=== PATIENT | male | born 1955 | race Hispanic/Latino ===

== ENCOUNTER 2016-07-28 10:33 | Emergency (ER) | payer MEDICARE, OTHER ==
[2016-07-28 10:33] VITALS: BMI 27.2
[2016-07-28 10:55] VITALS: RESP 18
[2016-07-28] MEDS ORDERED: Sodium Chloride 0.9% 1,000 ML IV STA (11:16)
[2016-07-28] MEDS ORDERED: Iohexol 240 (50 ml) ONE (11:19)
--- NOTE | 2016-07-28 11:23 | ED PDOC ---
Arrival/HPI - General Chief Complaint: Abdominal Pain Time Seen by Provider: 07/28/16 10:39 Historian: Patient - History of Present Illness Narrative History of Present Illness (Text): 07/28/16 11:23 61 year old male with a past medical history that includes ileostomy, ulcerative colitis, presents to the emergency department with abdominal pain and diarrhea for the past 2 weeks. pt reports he is having diarrhea from rectum and into iliostomy. pt poor historian. No fever, no other complaints. 07/28/16 15:24 Time/Duration: > week Symptom Onset: Gradual Symptom Course: Unchanged Modifying Factors (Text): None Associated Symptoms (Text): None Past Medical History - Provider Review Nursing Documentation Reviewed: Yes - Infectious Disease Hx of Infectious Diseases: None - Tetanus Immunization Tetanus Immunization: Unknown - Reproductive Currently : No - Cardiac Hx Cardiac Disorders: Yes Hx Hypertension: Yes - Pulmonary Hx Respiratory Disorders: No - Neurological Hx Neurological Disorder: No - HEENT Hx HEENT Disorder: No - Renal Hx Renal Disorder: No - Endocrine/Metabolic Hx Endocrine Disorders: No - Hematological/Oncological Hx Blood Transfusions: Yes Hx Blood Transfusion Reaction: No - Integumentary Hx Dermatological Disorder: No - Musculoskeletal/Rheumatological Hx Musculoskeletal Disorders: Yes Hx Arthritis: Yes Hx Falls: No Hx Osteoporosis: Yes - Gastrointestinal Hx Bowel Surgery: Yes (Colectomy ) - Genitourinary/Gynecological Hx Genitourinary Disorders: No - Psychiatric Hx Psychophysiologic Disorder: No Hx Substance Use: Yes - Surgical History Hx Cholecystectomy: Yes Other/Comment: COLOSTOMY WITH REVERSAL - Anesthesia Hx Anesthesia: No - Suicidal Assessment Feels Threatened In Home Enviroment: No Family/Social History - Physician Review Nursing Documentation Reviewed: Yes Family/Social History: Unknown Family HX Smoking Status: Current Some Days Smoker Hx Alcohol Use: Yes Frequency of alcohol use: Socially Hx Substance Use: Yes Substance used: CANNABIS Hx Substance Use Treatment: No Allergies/Home Meds Allergies/Adverse Reactions: Allergies No Known Allergies Allergy (Verified 07/28/16 10:55) Home Medications: Home Meds Medication Instructions Recorded Confirmed Vit [id number] 1,000 iu PO DAILY 07/28/16 07/28/16 Review of Systems - Physician Review All systems were reviewed & negative as marked: Yes - Review of Systems Constitutional: absent: Fevers Gastrointestinal: Abdominal Pain, Diarrhea Neurological: absent: Dizziness Physical Exam Vital Signs Reviewed: Yes Vital Signs Pulse Resp BP Pulse Ox 07/28/16 15:33 94 H 18 125/60 97 07/28/16 12:33 99 H 18 129/90 97 07/28/16 10:50 106 H 18 131/93 H 98 Blood Pressure: Normal Pulse: Tachycardic Respiratory Rate: Normal Appearance: Positive for: Well-Appearing, Non-Toxic, Comfortable Pain Distress: None Mental Status: Positive for: Alert and Oriented X 3 - Systems Exam Head: Present: Atraumatic, Normocephalic Pupils: Present: PERRL Extroacular Muscles: Present: EOMI Conjunctiva: Present: Normal Mouth: Present: Moist Mucous Membranes Neck: Present: Normal Range of Motion Respiratory/Chest: Present: Clear to Auscultation, Good Air Exchange. No: Respiratory Distress, Accessory Muscle Use Cardiovascular: Present: Regular Rate and Rhythm, Normal S1, S2. No: Murmurs Abdomen: Present: Normal Bowel Sounds, Other (Ileostomy draining liquid stool). No: Tenderness, Distention, Peritoneal Signs Back: Present: Normal Inspection Upper Extremity: Present: Normal Inspection. No: Cyanosis, Edema Lower Extremity: Present: Normal Inspection. No: Edema Neurological: Present: GCS=15, CN II-XII Intact, Speech Normal Skin: Present: Warm, Dry, Normal Color. No: Rashes Psychiatric: Present: Alert, Oriented x 3, Normal Insight, Normal Concentration Medical Decision Making ED Course and Treatment: Impression: 61 year old male with a past medical history that includes ileostomy , ulcerative colitis, presents to the emergency department with abdominal pain and diarrhea for the past 2 weeks. Differential Diagnosis include but are not limited to: ro colitis, complication of ileostomy. Plan: -- CT Abdomen/Pelvis -- Toradol, Zofran, IV fluids -- Labs -- Reassess and disposition Prior Visits: Notes and results from previous visits were reviewed. Patient last seen in ED on 05/04/16 for generalized weakness and discharged home. Progress Notes: CT Abdomen/Pelvis Pocketed Spring Machine Operator: Jim Perkins MD IMPRESSION: No acute intra-abdominal findings. 07/28/16 15:[address] unremarkable. 07/28/16 16:21 Patient evaluated by surgical team, requests patient continue outpatient care. Patient will be discharged home. Patient is stable for discharge. Patient was instructed to follow up with physician/clinic in 1-2 days or return if symptoms worsen or new concerning symptoms arise. - Lab Interpretations Lab Results: 07/28/16 13:35 07/28/16 13:35 Lab Results 07/28/16 13:35: WBC 8.9 D, RBC 5.08, Hgb 14.3, Hct 43.3, MCV 85.2, MCH 28.1, MCHC 33.0, RDW 16.4 H, Plt Count 277, MPV 9.5, Gran % 74.8 H, Lymph % (Auto) 15.3 L, [place] % (Auto) 6.7 H, Eos % (Auto) 2.5, Baso % (Auto) 0.7, Gran # 6.63 H , Lymph # 1.4, [place] # 0.6, Eos # 0.2, Baso # 0.06, PT 10.5, INR 0.97, APTT 29.2 , Sodium 132, Potassium 4.6, Chloride 100, Carbon Dioxide 23, Anion Gap 14, BUN 11, Creatinine 1.0, Est GFR ( Amer) > 60, Est GFR (Non-Af Amer) > 60, Random Glucose 79, Calcium 9.8, Total Bilirubin 0.8, AST 29, ALT 31, Alkaline Phosphatase 90, Total Protein 8.3, Albumin 4.3, Globulin 4.0, Albumin/Globulin Ratio 1.1, Lipase 216 07/28/16 13:00: Urine Color Yellow, Urine Appearance Clear, Urine pH 6.0, Ur Specific [place] >= 1.030, Urine Protein Negative, Urine Glucose (UA) Negative, Urine Ketones Negative, Urine Blood Negative, Urine Nitrate Negative, Urine Bilirubin Negative, Urine Urobilinogen 0.2, Ur Leukocyte Esterase Negative - RAD Interpretation Radiology Orders: 07/28/16 11:16 ABD PELVIS PO & IV CONTRAST [CT] Stat - Medication Orders Current Medication Orders: Discontinued Medications Sodium Chloride (Sodium Chloride 0.9%) 1,000 mls @ 1,000 mls/hr IV .Q1H STA Stop: 07/28/16 12:15 Last Admin: 07/28/16 13:06 Dose: 1,000 MLS/HR eMAR Start Stop Document 07/28/16 13:06 SF (Rec: 07/28/16 13:06 [email or web address]) Intravenous Solution Start Date 07/28/16 Start Time 13:06 End Date 07/28/16 End time 14:06 Total Infusion Time 60 Iohexol (Omnipaque 240 (50 Ml)) Confirm Administered Dose 50 ml .ROUTE .STK-MED ONE Stop: 07/28/16 11:20 Iohexol (Omnipaque 350 100 Ml) Confirm Administered Dose 350 mg .ROUTE .STK-MED ONE Stop: 07/28/16 14:23 Ketorolac Tromethamine (Toradol) 30 mg IVP STAT STA Stop: 07/28/16 11:17 Last Admin: 07/28/16 13:06 Dose: 30 MG IVP Administration Document 07/28/16 13:06 SF (Rec: 07/28/16 13:06 [email or web address]) Charges for Administration # of IVP Administrations 1 Ondansetron HCl (Zofran Inj) 4 mg IVP STAT STA Stop: 07/28/16 11:17 Last Admin: 07/28/16 13:05 Dose: 4 MG IVP Administration Document 07/28/16 13:05 SF (Rec: 07/28/16 13:06 [email or web address]) Charges for Administration # of IVP Administrations 1 - Scribe Statement The provider has reviewed the documentation as recorded by the Joyce Borrego Provider Scribe Attestation: All medical record entries made by the Joyce were at my direction and personally dictated by me. I have reviewed the chart and agree that the record accurately reflects my personal performance of the history, physical exam, medical decision making, and the department course for this patient. I have also personally directed, reviewed, and agree with the discharge instructions and disposition. Disposition/Present on Arrival - Present on Arrival Any Indicators Present on Arrival: No History of DVT/PE: No History of Uncontrolled Diabetes: No Urinary Catheter: No History of Decub. Ulcer: No History Surgical Site Infection Following: Abdominal Surgery - Disposition Have Diagnosis and Disposition been Completed?: Yes Diagnosis: Abdominal pain, Diarrhea Disposition: HOME/ ROUTINE Disposition Time: 15:26 Patient Problems: Current Active Problems Problem Status Diagnosed Abdominal pain Acute Diarrhea Acute Condition: STABLE Discharge Instructions (ExitCare): Acute Abdominal Pain (ED) Additional Instructions: please follow up with your doctor and specialist. return to er with worsening symptoms or concerns. Prescriptions: Famotidine [Pepcid] 20 mg PO DAILY #20 tab Referrals: Facundo Velez MD [Primary Care Provider] - Follow up with primary Luciano Rodriguez MD [Staff Provider] - Follow up with primary
[2016-07-28 13:16] LABS: URINE BILIRUBIN NEGATIVE (NEGATIVE); URINE BLOOD NEGATIVE (NEGATIVE); URINE GLUCOSE (UA) NEGATIVE (NEGATIVE); URINE KETONE NEGATIVE (NEGATIVE); URINE LEUKOCYTE ESTERASE NEGATIVE Leu/uL (NEGATIVE); URINE UROBILINOGEN 0.2 E.U./dL (<1 E.U./dL)
[2016-07-28 13:17] LABS: URINE APPEARANCE CLEAR (CLEAR); URINE COLOR YELLOW (YELLOW); URINE PROTEIN NEGATIVE mg/dL (<30 mg/dL)
[2016-07-28 13:42] LABS: ADD MANUAL DIFF? NO
[2016-07-28 13:54] LABS: BASO # 0.06 K/mm3 (0.0-2.0); BASO % 0.7 % (0.0-3.0); EOS # 0.2 (0.0-0.7); EOS % 2.5 % (1.5-5.0); GRAN # 6.63 (1.4-6.5); GRAN % 74.8 % (50.0-68.0); HEMATOCRIT 43.3 % (42.0-52.0); LYMPH # 1.4 (1.2-3.4); LYMPH % 15.3 % (22.0-35.0); MEAN CELL VOLUME 85.2 fL (80.0-105.0); MEAN CORPUSCULAR HEMOGLOBIN 28.1 pg (25.0-35.0); MEAN PLATELET VOLUME 9.5 fl (7.0-11.0); MONO # 0.6 (0.1-0.6); MONO % 6.7 % (1.0-6.0); PLATELET COUNT 277 10^3/uL (120.0-450.0); RED CELL DISTRIBUTION WIDTH 16.4 % (11.5-14.5); WHITE BLOOD COUNT 8.9 10^3/ul (4.5-11.0)
[2016-07-28 14:02] LABS: INR 0.97 (0.93-1.08); PARTIAL THROMBOPLASTIN TIME 29.2 Seconds (23.7-30.8)
[2016-07-28 14:09] LABS: ALB/GLOB RATIO 1.1 (1.1-1.8); ALKALINE PHOSPHATASE 90 U/L (38-133); ALT/SGPT 31 U/L (7-56); AST/SGOT 29 U/L (15-59); BILIRUBIN,TOTAL 0.8 mg/dL (0.2-1.3); BLOOD UREA NITROGEN 11 mg/dL (7-21); CALCIUM 9.8 mg/dL (8.4-10.5); CARBON DIOXIDE 23 mmol/L (21-33); CHLORIDE 100 mmol/L (98-107); GFR AFRICAN-AMERICAN > 60; GLUCOSE,RANDOM 79 mg/dL (70-110); LIPASE 216 U/L (23-300); POTASSIUM 4.6 mmol/L (3.6-5.0); SODIUM 132 mmol/L (132-148); TOTAL PROTEIN 8.3 g/dL (5.8-8.3)
[2016-07-28] MEDS ORDERED: Iohexol 350 MG/100 ML VIAL ONE (14:22)
[2016-07-28 15:08] VITALS: O2SAT 97
--- NOTE | 2016-07-28 15:21 | CT ---
PROCEDURE: CT Abdomen and Pelvis with contrast HISTORY: abd pain, diarrhea COMPARISON: None. TECHNIQUE: Contrast dose: 100 cc of Omni 350 Radiation dose: Total exam DLP = 524 mGy-cm. This CT exam was performed using one or more of the following dose reduction techniques: Automated exposure control, adjustment of the mA and/or kV according to patient size, and/or use of iterative reconstruction technique. FINDINGS: LOWER THORAX: Unremarkable. LIVER: Unremarkable. No gross lesion or ductal dilatation. GALLBLADDER AND BILE DUCTS: Gallbladder removed PANCREAS: Unremarkable. No gross lesion or ductal dilatation. SPLEEN: Unremarkable. ADRENALS: Unremarkable. No mass. KIDNEYS AND URETERS: Unremarkable. No hydronephrosis. No solid mass. VASCULATURE: Unremarkable. No aortic aneurysm. BOWEL: Unremarkable. No obstruction. No gross mural thickening. Left lower lobe colostomy APPENDIX: Normal appendix. PERITONEUM: Unremarkable. No free fluid. No free air. LYMPH NODES: Unremarkable. No enlarged lymph nodes. BLADDER: Unremarkable. REPRODUCTIVE: Unremarkable. BONES: No acute fracture. OTHER FINDINGS: None. IMPRESSION: No acute intra-abdominal findings
[2016-07-28 17:21] VITALS: BP 126/75; PULSE 83
[2016-07-29 08:17] VITALS: TEMP 98
== END 2016-07-28 17:10 | disposition home or self-care (01) ==
LOC: ED 10:33
DX: R19.7 Diarrhea, unspecified (principal); R10.9 Unspecified abdominal pain
CPT/HCPCS: 74177; 80053; 81003; 83690; 85025; 85610; 85730; 96361; 96374; 96375; 99284; J1885; J2405; J7040; Q9966; Q9967

== ENCOUNTER 2016-10-31 09:47 | Day surgery (SDC) | payer MEDICARE ==
[2016-07-30 14:16] VITALS: BMI 27.2
[2016-10-31] MEDS ORDERED: Lidocaine 2% Jelly (30 ml) ONE (10:51)
[2016-10-31 13:27] VITALS: BP 131/83; PULSE 62; RESP 16; TEMP 98.5; O2SAT 99
== END 2016-10-31 12:45 | disposition home or self-care (01) ==
LOC: ENDO 09:47 → OPSURG 09:47
PROVIDERS: ATTEND Internal Medicine Gastroenterology
DX: K51.20 Ulcerative (chronic) proctitis without complications (principal); K62.89 Other specified diseases of anus and rectum

== ENCOUNTER 2017-04-02 06:00 | Inpatient (IN) | payer MEDICARE, OTHER ==
--- NOTE | 2017-04-02 06:07 | ED PDOC ---
Arrival/HPI <Elida Odom - Last Filed: 04/02/17 12:58> - General Historian: Patient, EMS - History of Present Illness Time/Duration: < week (2 days) Symptom Onset: Gradual Symptom Course: Unchanged Activities at Onset: Light Context: Home <YolaHarley angeles - Last Filed: 04/05/17 09:25> - General Time Seen by Provider: 04/02/17 06:02 - History of Present Illness Narrative History of Present Illness (Text): 04/02/17 06:07 Danilo Farfan is a 61 year old male, whose past medical history includes ulcerative colitis, colectomy with recent colostomy reversal, hypertension, hyperlipidemia, pancreatitis, and abdominal hernia repair, who presents to the Emergency department brought in by EMS complaining of rectal bleeding. Patient states he has been experiencing rectal bleeding with associated lower abdominal pain for the past 2 days, worse tonight. Patient notes he recently underwent a colostomy reversal at [facility] about 1 week ago. Patient denies any fever, chest pain, shortness of breath, nausea, vomiting, headache, dizziness, or any other complaints. PMD: Dr. Velez (Harley Laura) Past Medical History - Provider Review Nursing Documentation Reviewed: Yes - Infectious Disease Hx of Infectious Diseases: None - Tetanus Immunization Tetanus Immunization: Unknown - Cardiac Hx Pacemaker: No - Pulmonary Hx Respiratory Disorders: No - Neurological Hx Paralysis: No - HEENT Hx HEENT Disorder: No - Renal Hx Renal Disorder: No - Endocrine/Metabolic Hx Endocrine Disorders: No - Hematological/Oncological Hx Blood Transfusions: Yes (2006) Hx Blood Transfusion Reaction: No - Integumentary Hx Dermatological Disorder: No - Musculoskeletal/Rheumatological Hx Musculoskeletal Disorders: Yes (OF SPINE) - Gastrointestinal Hx Gastrointestinal Disorders: Yes Hx Bowel Surgery: Yes - Genitourinary/Gynecological Hx Genitourinary Disorders: No - Psychiatric Hx Emotional Abuse: No Hx Physical Abuse: No Hx Substance Use: Yes (MARIJUANA- OCC USE LAST ON 07/27/16) - Surgical History Hx Cholecystectomy: Yes Other/Comment: COLOSTOMY WITH REVERSAL - Anesthesia Hx Anesthesia Reactions: No - Suicidal Assessment Feels Threatened In Home Enviroment: No <Harley Laura - Last Filed: 04/05/17 09:25> Family/Social History - Physician Review Nursing Documentation Reviewed: Yes Family/Social History: Unknown Family HX Smoking Status: Light Smoker < 10 Cigarettes Daily Hx Alcohol Use: Yes (SOCIAL) Hx Substance Use: Yes (MARIJUANA- OCC USE LAST ON 07/27/16) Substance used: CANNABIS Hx Substance Use Treatment: No <Harley Laura - Last Filed: 04/05/17 09:25> Allergies/Home Meds <Elida Odom - Last Filed: 04/02/17 12:58> <Harley Laura - Last Filed: 04/05/17 09:25> Allergies/Adverse Reactions: Allergies No Known Allergies Allergy (Verified 10/27/16 12:06) Home Medications: Home Meds Medication Instructions Recorded Confirmed Multivit-Minerals/FA/Lycopene [One 1 tab PO DAILY 10/31/16 04/02/17 Daily For Men Tablet] Review of Systems - Physician Review All systems were reviewed & negative as marked: Yes - Review of Systems Constitutional: Normal. absent: Fevers Eyes: Normal ENT: Normal Respiratory: Normal. absent: SOB, Cough Cardiovascular: Normal Gastrointestinal: Abdominal Pain (+lower abdominal pain), Other (+rectal bleeding) Genitourinary Male: Normal Musculoskeletal: Normal. absent: Back Pain, Neck Pain Skin: Normal. absent: Rash Neurological: Normal Endocrine: Normal Hemo/Lymphatic: Normal Psychiatric: Normal <Harley Laura - Last Filed: 04/05/17 09:25> Physical Exam Vital Signs Reviewed: Yes Temperature: Afebrile Blood Pressure: Hypotensive Pulse: Tachycardic Respiratory Rate: Normal Appearance: Positive for: Well-Appearing, Non-Toxic, Comfortable Pain Distress: None Mental Status: Positive for: Alert and Oriented X 3 - Systems Exam Head: Present: Atraumatic, Normocephalic Pupils: Present: PERRL Extroacular Muscles: Present: EOMI Conjunctiva: Present: Normal Mouth: Present: Moist Mucous Membranes Neck: Present: Normal Range of Motion Respiratory/Chest: Present: Clear to Auscultation, Good Air Exchange. No: Respiratory Distress, Accessory Muscle Use Cardiovascular: Present: Normal S1, S2, Tachycardic. No: Murmurs Abdomen: Present: Normal Bowel Sounds, Other (Healing surgical wound to right abdomen ). No: Tenderness, Distention, Peritoneal Signs Back: Present: Normal Inspection Upper Extremity: Present: Normal Inspection. No: Cyanosis, Edema Lower Extremity: Present: Normal Inspection. No: Edema Neurological: Present: GCS=15, CN II-XII Intact, Speech Normal Skin: Present: Warm, Dry, Normal Color. No: Rashes Psychiatric: Present: Alert, Oriented x 3, Normal Insight, Normal Concentration <Harley Laura - Last Filed: 04/05/17 09:25> Vital Signs Temp Pulse Resp BP Pulse Ox 04/02/17 09:37 97.8 F 100 H 18 103/47 L 92 L 04/02/17 09:00 110 H 18 121/82 100 04/02/17 08:13 97.7 F 109 H 18 96/62 L 95 04/02/17 07:28 97.8 F 107 H 18 99/52 L 97 04/02/17 06:41 118 H 18 99/62 L 100 04/02/17 06:06 98.1 F 128 H 18 97/45 L 99 Medical Decision Making - EKG Interpretation Interpreted by ED Physician: Yes Type: 12 lead EKG Comparison: No previous EKG avail. <Elida Odom - Last Filed: 04/02/17 12:58> - EKG Interpretation Interpreted by ED Physician: Yes Type: 12 lead EKG - Transfer of Care Patient signed out to Dr:: kiara anderson labs and dispo <Harley Laura - Last Filed: 04/05/17 09:25> ED Course and Treatment: Turnover taken from Dr Laura.On my exam pt is noted to have BP 99/66 and pulse 0f 106.Rectal exam reveals maroon colored attila blood.Pt is receiving 2nd unit of PRBC's,.Spoke with Dr Rodriguez of surgery.Spoke with cage manager,await call from Dr Hall 04/02/17 8:[address] Jones, accepts patient to ICU. Will contact Dr. Candelaria for acceptance. 04/02/17 08:[address] Carvajal, covering for Dr. Candelaria, who is aware and accepts patient admission. (Elida Odom) 04/02/17 06:07 Impression: 61 year old male complaining of rectal bleeding for 2 days, with associated lower abdominal pain. Plan: -- EKG -- Chest X-ray -- Labs, VBG, cardiac enzymes, lipase, amylase, blood type and screen -- Transfuse packed RBC -- IV fluids -- Protonix -- Reassess and disposition Prior Visits: Notes and results from previous visits were reviewed. On 07/30/2016, pt was seen in the Emergency department for colostomy evaluation. Pt was d/c home. Progress Notes: Reviewed EKG, sinus tachycardia at [address]-segment elevations or depressions, no T-wave inversions, normal intervals. pt with active bleeding and hypotension will order type specific unmatched prbs and transfuse (Harley Laura) - Lab Interpretations Lab Results: 04/02/17 06:22 04/02/17 06:22 Lab Results 04/02/17 08:09: pO2 37, VBG pH 7.33, VBG pCO2 44.0, VBG HCO3 23.2, VBG Total CO2 24.6, VBG O2 Sat (Calc) 70.5 H, VBG Base Excess -2.8 L, VBG Potassium 4.6, Glucose 100, Lactate 2.7 H, FiO2 21.0, Sodium 131.0 L, Chloride 102.0, Venous Blood Potassium 4.6 04/02/17 08:09: PT 12.4, INR 1.12 H, APTT 26.0 04/02/17 08:00: Influenza Typ A,B (EIA) Negative for flu a/b 04/02/17 06:23: Blood Type O POSITIVE, Antibody Screen Negative, Crossmatch See Detail, BBK History Checked Patient has bt 04/02/17 06:22: Sodium 132, Potassium 4.6, Chloride 100, Carbon Dioxide 17 L, Anion Gap 19, BUN 47 H, Creatinine 1.8 H, Est GFR ( Amer) 47, Est GFR ( Non-Af Amer) 39, Random Glucose 151 H, Calcium 9.3, Total Bilirubin 0.3, AST 20 , ALT 26, Alkaline Phosphatase 68, Lactate Dehydrogenase 249 L, Total Creatine Kinase 27 L, Troponin I < 0.01, Total Protein 6.6, Albumin 3.6, Globulin 3.0, Albumin/Globulin Ratio 1.2, Amylase 154 H, Lipase 540 H 04/02/17 06:22: WBC 23.8 H D, RBC 3.55, Hgb 10.0 L, Hct 31.0 L, MCV 87.3, MCH 28.2, MCHC 32.3, RDW 16.6 H, Plt Count 447, MPV 10.6, Gran % 90.5 H, Lymph % ( Auto) 4.5 L, [place] % (Auto) 4.8, Eos % (Auto) 0.0 L, Baso % (Auto) 0.2, Gran # 21.51 H, Lymph # 1.1 L, [place] # 1.1 H, Eos # 0.0, Baso # 0.05, Neutrophils % ( Manual) 92 H, Lymphocytes % (Manual) 4 L, Monocytes % (Manual) 3, Myelocytes % 1 , Platelet Evaluation Normal, Hypochromasia 1+, Anisocytosis (manual) 1+ - RAD Interpretation Radiology Orders: 04/02/17 06:11 CHEST PORTABLE [RAD] Stat 04/02/17 08:28 ABD & PELVIS W/O PO OR IV CONT [CT] Stat - EKG Interpretation EKG Interpretation (Text): 04/02/17 08:07 sinus tach at 116 BPM,no acute STTW changes,nl axis,no ectopy,nl intervals ( Elida Odom) - Medication Orders Current Medication Orders: Morphine Sulfate (Morphine) 1 mg IVP Q3H PRN PRN Reason: Pain, moderate (4-7) Last Admin: 04/05/17 08:11 Dose: 1 mg MAR Pain Assessment Document 04/05/17 08:11 (Rec: 04/05/17 08:12 [place] [id number]) Pain Reassessment Is this a pain reassessment? No Sleep Is patient sleeping during reassessment? No Presence of Pain Presence of Pain Yes Pain Scale Used Pain Scale Used Numeric Location Pain Location Body Site Abdomen Description Description Constant Pain Behavior Moaning Alleviating Factors/Management Medication Techniques Alleviating Factors Medication IVP Administration Document 04/05/17 08:11 MJ (Rec: 04/05/17 08:12 [place] [id number]) Charges for Administration # of IVP Administrations 1 Pantoprazole Sodium (Protonix Inj) 40 mg IVP Q12H [facility] Last Admin: 04/05/17 09:06 Dose: 40 mg IVP Administration Document 04/05/17 09:06 TAV (Rec: 04/05/17 09:06 T[place] [id number]) Charges for Administration # of IVP Administrations 1 Discontinued Medications Lactated Ringer's (Lactated Ringer's) 1,000 mls @ 1,000 mls/hr IV .Q1H [facility] Last Admin: 04/02/17 07:23 Dose: 1,000 mls/hr eMAR Start Stop Document 04/02/17 07:23 RG (Rec: 04/02/17 07:25 RG [id number]) Intravenous Solution Start Date 04/02/17 Start Time 07:23 Folic Acid 1 mg/ Thiamine HCl 100 mg/ Multivitamins/Vitamin C 10 ml/ Dextrose 1 ,011.2 mls @ 100 mls/hr IV .Q10H7M [place] Last Admin: 04/02/17 17:38 Dose: Sodium Chloride (Sodium Chloride 0.9%) 1,000 mls @ 200 mls/hr IV .Q5H [place] Stop: 04/04/17 12:16 Last Admin: 04/02/17 19:30 Dose: 200 mls/hr Folic Acid 1 mg/ Thiamine HCl 100 mg/ Multivitamins/Vitamin C 10 ml/ Dextrose 1 ,011.2 mls @ 100 mls/hr IV .Q10H7M [place] Stop: 04/03/17 18:30 Last Admin: 04/03/17 10:24 Dose: 100 mls/hr eMAR Start Stop Document 04/03/17 10:24 JFG (Rec: 04/03/17 10:25 RASHEL [facility] [place] [facility]) Intravenous Solution Start Date 04/03/17 Start Time 10:25 Sodium Chloride (Sodium Chloride 0.9%) 1,000 mls @ 150 mls/hr IV .Q6H40M [place] Stop: 04/04/17 12:16 Last Admin: 04/04/17 17:39 Dose: 150 mls/hr eMAR Start Stop Document 04/04/17 17:39 LMN (Rec: 04/04/17 17:39 LMN [id number]) Intravenous Solution Start Date 04/04/17 Start Time 17:39 Sodium Chloride (Sodium Chloride 0.9%) 1,000 mls @ 75 mls/hr IV .[id number] [facility] Stop: 04/03/17 14:31 Last Admin: 04/03/17 14:39 Dose: Pantoprazole Sodium (Protonix Inj) 40 mg IVP ONCE STA Stop: 04/02/17 06:22 Last Admin: 04/02/17 06:40 Dose: 40 mg IVP Administration Document 04/02/17 06:40 IT (Rec: 04/02/17 06:40 IT [id number]) Charges for Administration # of IVP Administrations 1 Potassium Chloride (Potassium Chloride Oral Soln) 40 meq PO ONCE ONE Stop: 04/03/17 10:59 Last Admin: 04/03/17 12:54 Dose: 40 meq Potassium Phos/Sodium Phos (Neutra-Phos) 1 pkt PO BID ONE Stop: 04/03/17 10:59 Last Admin: 04/03/17 11:38 Dose: Not Given Non-Admin Reason: NPO <Elida Odom - Last Filed: 04/02/17 12:58> - Scribe Statement The provider has reviewed the documentation as recorded by the Scribe <Harley Laura - Last Filed: 04/05/17 09:25> - Scribe Statement Meg Hinson Provider Scribe Attestation: All medical record entries made by the Scribe were at my direction and personally dictated by me. I have reviewed the chart and agree that the record accurately reflects my personal performance of the history, physical exam, medical decision making, and the department course for this patient. I have also personally directed, reviewed, and agree with the discharge instructions and disposition. (Harley Laura) Disposition/Present on Arrival - Present on Arrival Any Indicators Present on Arrival: No - Disposition Have Diagnosis and Disposition been Completed?: Yes Disposition Time: 08:58 Patient Plan: ICU <Elida Odom - Last Filed: 04/02/17 12:58> - Present on Arrival Any Indicators Present on Arrival: No History of DVT/PE: No History of Uncontrolled Diabetes: No Urinary Catheter: No History Surgical Site Infection Followin - Disposition Have Diagnosis and Disposition been Completed?: Yes Disposition Time: 07:00 <Harley Laura - Last Filed: 04/05/17 09:25> - Disposition Diagnosis: GI bleed Disposition: HOSPITALIZED Patient Problems: Current Active Problems Problem Status Onset GI bleed Acute Condition: CRITICAL
[2017-04-02] MEDS: Lactated Ringer's 1,000 ML IV SCH ×2 (06:40→07:23)
[2017-04-02 06:45] LABS: ALB/GLOB RATIO 1.2 (1.1-1.8); ALKALINE PHOSPHATASE 68 U/L (38-126); ALT/SGPT 26 U/L (7-56); AMYLASE 154 U/L (35-125); AST/SGOT 20 U/L (17-59); BILIRUBIN,TOTAL 0.3 mg/dL (0.2-1.3); BLOOD UREA NITROGEN 47 mg/dL (7-21); CALCIUM 9.3 mg/dL (8.4-10.5); CARBON DIOXIDE 17 mmol/L (21-33); CHLORIDE 100 mmol/L (98-107); GFR AFRICAN-AMERICAN 47; GLUCOSE,RANDOM 151 mg/dL (70-110); LIPASE 540 U/L (23-300); POTASSIUM 4.6 mmol/L (3.6-5.0); SODIUM 132 mmol/L (132-148); TOTAL PROTEIN 6.6 g/dL (5.8-8.3)
[2017-04-02 06:57] LABS: TROPONIN I < 0.01 ng/mL
[2017-04-02 07:10] LABS: BASO # 0.05 K/mm3 (0.0-2.0); BASO % 0.2 % (0.0-3.0); GRAN # 21.51 (1.4-6.5); GRAN % 90.5 % (50.0-68.0); LYMPH # 1.1 (1.2-3.4); LYMPH % 4.5 % (22.0-35.0); MEAN CELL VOLUME 87.3 fl (80.0-105.0); MEAN CORPUSCULAR HEMOGLOBIN 28.2 pg (25.0-35.0); MEAN CORPUSCULAR HGB CONC 32.3 g/dl (31.0-37.0); MEAN PLATELET VOLUME 10.6 fl (7.0-11.0); MONO # 1.1 (0.1-0.6); MONO % 4.8 % (1.0-6.0); PLATELET COUNT 447 10^3/uL (120.0-450.0); RED CELL DISTRIBUTION WIDTH 16.6 % (11.5-14.5); WHITE BLOOD COUNT 23.8 10^3/ul (4.5-11.0)
--- NOTE | 2017-04-02 08:18 | CP.CCUPN ---
CCU Subjective - Physician Review Events Since Last Encounter (Free Text): 04/02/17 08:14 61yo male pt presented with GI bleed. Pt has a h\o Ulcerative colitis and had colostomy done in the past. On March 16 he had colostomy reversal. Pt stated that for the past 3 days he has been having shortness of breath, cough and decreased PO intake. He also stated that he was nauseous and had one episode of bloody vomiting today after which he was extremely weak and could not get up and was taken to ED. He has also been having bloody diarrhea for 3 days and decreased urine output. PMH: Ulcerative colitis (denies any other medical problems) Surgical History: Hernia repair, multiple UC surgeries, Colectomy, colostomy, colostomy reversal Social HX; drinks ETOH ; smokes 1 PPD; occasionally uses Cannabis Family Hx: Father had prostate CA; mother had UC 04/02/17 08:18 CCU Objective - Vital Signs / Intake & Output Vital Signs (Last 4 hours): Vital Signs Temp Pulse Resp BP Pulse Ox 04/02/17 07:28 97.8 F 107 H 18 99/52 L 97 04/02/17 06:41 118 H 18 99/62 L 100 04/02/17 06:06 98.1 F 128 H 18 97/45 L 99 Intake and Output (Last 8hrs): Intake & Output 04/01/17 04/02/17 04/02/17 22:59 06:59 14:59 Weight 160 lb - Physical Exam Head: Positive for: Atraumatic, Normocephalic Conjunctiva: Positive for: Normal Mouth: Positive for: Dry Neck: Positive for: Normal Range of Motion Respiratory/Chest: Positive for: Clear to Auscultation, Good Air Exchange. Negative for: Respiratory Distress, Accessory Muscle Use Cardiovascular: Positive for: Normal S1, S2, Tachycardic. Negative for: Murmurs Abdomen: Positive for: Normal Bowel Sounds, Other (Healing surgical wound to right abdomen ; multiple old scars). Negative for: Tenderness, Distention, Peritoneal Signs Upper Extremity: Positive for: Normal Inspection. Negative for: Cyanosis, Edema Lower Extremity: Positive for: Normal Inspection. Negative for: Edema Neurological: Positive for: GCS=15, CN II-XII Intact, Speech Normal Skin: Positive for: Warm, Dry, Normal Color. Negative for: Rashes Psychiatric: Positive for: Alert, Oriented x 3, Normal Insight, Normal Concentration - Medications Active Medications: Active Medications Generic Name Dose Route Start Last Admin Trade Name Freq PRN Reason Stop Dose Admin Lactated Ringer's 1,000 mls @ 1,000 mls/hr 04/02/17 06:30 04/02/17 07:23 Lactated Ringer's IV 1,000 mls/hr .Q1H BRIGITTE Administration - Patient Studies Lab Studies: Lab Studies 04/02/17 04/02/17 04/02/17 Range/Units 06:23 06:22 06:22 WBC 23.8 H D (4.5-11.0) 10^3/ul RBC 3.55 (3.5-6.1) 10^6/uL Hgb 10.0 L (14.0-18.0) g/dL Hct 31.0 L (42.0-52.0) % MCV 87.3 (80.0-105.0) fl MCH 28.2 (25.0-35.0) pg MCHC 32.3 (31.0-37.0) g/dl RDW 16.6 H (11.5-14.5) % Plt Count 447 (120.0-450.0) 10^3/uL MPV 10.6 (7.0-11.0) fl Gran % 90.5 H (50.0-68.0) % Lymph % (Auto) 4.5 L (22.0-35.0) % [place] % (Auto) 4.8 (1.0-6.0) % Eos % (Auto) 0.0 L (1.5-5.0) % Baso % (Auto) 0.2 (0.0-3.0) % Gran # 21.51 H (1.4-6.5) Lymph # 1.1 L (1.2-3.4) [place] # 1.1 H (0.1-0.6) Eos # 0.0 (0.0-0.7) Baso # 0.05 (0.0-2.0) K/mm3 Sodium 132 (132-148) mmol/L Potassium 4.6 (3.6-5.0) mmol/L Chloride 100 (98-107) mmol/L Carbon Dioxide 17 L (21-33) mmol/L Anion Gap 19 (10-20) BUN 47 H (7-21) mg/dL Creatinine 1.8 H (0.8-1.5) mg/dl Est GFR ( Amer) 47 Est GFR (Non-Af Amer) 39 Random Glucose 151 H (70-110) mg/dL Calcium 9.3 (8.4-10.5) mg/dL Total Bilirubin 0.3 (0.2-1.3) mg/dL AST 20 (17-59) U/L ALT 26 (7-56) U/L Alkaline Phosphatase 68 (38-126) U/L Lactate Dehydrogenase 249 L (333-699) U/L Total Creatine Kinase 27 L (35-230) U/L Troponin I < 0.01 ng/mL Total Protein 6.6 (5.8-8.3) g/dL Albumin 3.6 (3.0-4.8) g/dL Globulin 3.0 gm/dL Albumin/Globulin Ratio 1.2 (1.1-1.8) Amylase 154 H (35-125) U/L Lipase 540 H (23-300) U/L Blood Type O POSITIVE Antibody Screen Negative Crossmatch See Detail BBK History Checked Patient has bt Laboratory Results - last 24 hr 04/02/17 04/02/17 04/02/17 06:22 06:22 06:23 WBC 23.8 H D RBC 3.55 Hgb 10.0 L Hct 31.0 L MCV 87.3 MCH 28.2 MCHC 32.3 RDW 16.6 H Plt Count 447 MPV 10.6 Gran % 90.5 H Lymph % (Auto) 4.5 L [place] % (Auto) 4.8 Eos % (Auto) 0.0 L Baso % (Auto) 0.2 Gran # 21.51 H Lymph # 1.1 L [place] # 1.1 H Eos # 0.0 Baso # 0.05 Sodium 132 Potassium 4.6 Chloride 100 Carbon Dioxide 17 L Anion Gap 19 BUN 47 H Creatinine 1.8 H Est GFR ( Amer) 47 Est GFR (Non-Af Amer) 39 Random Glucose 151 H Calcium 9.3 Total Bilirubin 0.3 AST 20 ALT 26 Alkaline Phosphatase 68 Lactate Dehydrogenase 249 L Total Creatine Kinase 27 L Troponin I < 0.01 Total Protein 6.6 Albumin 3.6 Globulin 3.0 Albumin/Globulin Ratio 1.2 Amylase 154 H Lipase 540 H Blood Type O POSITIVE Antibody Screen Negative Crossmatch See Detail BBK History Checked Patient has bt EKG/Cardiology Studies: Cardiology / EKG Studies 04/02/17 06:11 ELECTROCARDIOGRAM Stat Comment: Reason For Exam: gi bleed Review of Systems - Review of Systems Systems not reviewed;Unavailable: Acuity of Condition All systems: reviewed and no additional remarkable complaints except (pls see in H&P) Critical Care Progress Note - Ventilator Checklist PUD Prophalyxis: Yes - Prophylaxis GI Prophylaxis GI: PPI Assessment/Plan - Assessment and Plan (Free Text) Plan: GI bleed \ Ulcerative Colitis \ Recent Colostomy Reversal Surgery \ DAVE \ Pancreatitis \ ETOH use -hemodynamic monitoring to maintain MAP>65 -o2 supplementation to maintain Spo2>90 Pao2>60; currently comfortable on NC -f\u flu swab -f\u Bun\Cr and U\o; continue IVF with NS after PRBC transfusion -GI team eval -surgical team eval -f\u CT A\P -f\u Amylase\Lipase -continue PPi IV q12H -f\u serial H\H; pt given 1 PRBC in ED -NPO diet and aspiration precautions -start banana bag (thiamine, folic acid); monitor for ETOH withdrawal -pain meds PRN -DVT \ PUD prophylaxis CCM eval time 42mins
[2017-04-02 08:22] LABS: VENOUS BLOOD GAS BASE EXCESS -2.8 mmol/L (0.0-2.0); VENOUS BLOOD PH 7.33 (7.32-7.43)
[2017-04-02 08:44] LABS: INR 1.12 (0.93-1.08)
[2017-04-02 08:51] LABS: NEUTROPHIL 92 % (50.0-70.0)
[2017-04-02 08:52] LABS: ANISOCYTOSIS 1+; HYPOCHROMIA 1+; MYELOCYTE 1 %; PLATELET ESTIMATE NORMAL (NORMAL)
[2017-04-02] MEDS: Morphine 2 mg/ml ISec IVP PRN ×3 (09:29→19:36)
[2017-04-02 10:35] LABS: MAGNESIUM 1.9 mg/dL (1.7-2.2); PHOSPHOROUS 2.7 mg/dL (2.5-4.5)
[2017-04-02 11:37] LABS: BASO # 0.03 K/mm3 (0.0-2.0); BASO % 0.2 % (0.0-3.0); EOS % 0.1 % (1.5-5.0); GRAN # 12.67 (1.4-6.5); GRAN % 86.4 % (50.0-68.0); HEMATOCRIT 29.6 % (42.0-52.0); LYMPH # 1.1 (1.2-3.4); LYMPH % 7.2 % (22.0-35.0); MEAN CELL VOLUME 87.1 fl (80.0-105.0); MEAN CORPUSCULAR HEMOGLOBIN 28.8 pg (25.0-35.0); MEAN CORPUSCULAR HGB CONC 33.1 g/dl (31.0-37.0); MEAN PLATELET VOLUME 9.4 fl (7.0-11.0); MONO # 0.9 (0.1-0.6); MONO % 6.1 % (1.0-6.0); RED CELL DISTRIBUTION WIDTH 16.1 % (11.5-14.5); WHITE BLOOD COUNT 14.7 10^3/ul (4.5-11.0)
[2017-04-02] MEDS: Folic Acid 1 MG, Thiamine 100 MG, Multivitamin (MVI) 10 ML in Dextrose 5% In Water 1,00... IV SCH ×2 (11:45→17:38)
[2017-04-02 11:52] LABS: ALB/GLOB RATIO 1.1 (1.1-1.8); BILIRUBIN,TOTAL 0.7 mg/dL (0.2-1.3); CALCIUM 8.7 mg/dL (8.4-10.5); MAGNESIUM 1.8 mg/dL (1.7-2.2); PHOSPHOROUS 1.8 mg/dL (2.5-4.5); POTASSIUM 4.8 mmol/L (3.6-5.0); TOTAL PROTEIN 5.9 g/dL (5.8-8.3)
--- NOTE | 2017-04-02 12:01 | CT ---
PROCEDURE: CT scan abdomen and pelvis dated in 03/202005/02/2016. HISTORY: Pancreatitis. GI bleed. COMPARISON: Comparison made with CT scan abdomen pelvis dated 07/28/2016. TECHNIQUE: Contiguous axial images of the abdomen and pelvis. Oral contrast was administered. No IV contrast given. Coronal and Sagittal reformats generated. Radiation dose: Total exam DLP = 378.96 mGy-cm. This CT exam was performed using one or more of the following dose reduction techniques: Automated exposure control, adjustment of the mA and/or kV according to patient size, and/or use of iterative reconstruction technique. FINDINGS: LOWER THORAX: There appears to be some mild atelectasis/ scarring changes in the left lower lung field most pronounced in the left posterior sulcus and to a lesser degree left lingular regions. No effusion or basilar pneumothorax. Heart size within range of normal. No significant pericardial effusion. Tiny hiatal hernia. LIVER: Liver exhibits normal size measuring approximately 14.6 cm in CC dimension. No obvious hepatic mass collection or calcification. GALLBLADDER AND BILE DUCTS: Gallbladder has been resected with metallic clips in the gallbladder fossa. PANCREAS: There is infiltration changes and enlargement of the head and body of the pancreas consistent with this patient's history of pancreatitis. Correlation with serum amylase - lipase recommended. SPLEEN: Spleen exhibits normal size and attenuation pattern without mass collection or calcification. ADRENALS: Prominent appearing left adrenal gland. Right adrenal gland unremarkable. KIDNEYS AND URETERS: Kidneys demonstrate relatively symmetric size. Re- demonstrated is a any elliptical shaped approximately 18.5 x 12.7 mm exophytic low-attenuation focus arising from the posterior aspect midpole left kidney that may represent a hyperdense cyst. Followup ultrasound recommended to confirm and exclude any solid component. BLADDER: Urinary bladder appears incompletely distended which presumably accounts for slight thick-walled appearance. Muscular hypertrophy may contribute. . No evidence of intraluminal urinary bladder calculi. REPRODUCTIVE: Prostate gland measures approximately 4.6 cm in transverse dimension. APPENDIX: The appendix is not seen with certainty on this study. BOWEL: Evaluation of the bowel is somewhat limited due to the lack of oral contrast material. The stomach is incompletely distended which in part accounts for thick-walled appearance. There also appears to be wall thickening of the pylorus region and duodenum adjacent to the inflamed edematous head of the pancreas. There also appears to be wall thickening of the distal pylorus and duodenum possibly reactive -secondary to the adjacent inflamed pancreatic head and body however the possibility of a primary inflammation (gastritis/ duodenitis) of the distal stomach/ duodenum or peptic ulcer not excluded. Clinical correlation recommended ; followup endoscopy may be prudent. . . Changes of partial colectomy again noted however there has been reversal of a previously noted the colostomy which was located in the left lower quadrant of the abdomen. At least three separate anastomoses, 1,one at the level of the rectum, another involving the distal sigmoid -at the rectosigmoid junction. . Apparent partial left hemicolectomy with a 3rd anastomosis in the right parasagittal upper pelvis region possibly. . There is mild dilatation of the remaining proximal colon. There is also fairly extensive extensive scarring along posterior margin anterior abdominal wall from the mid abdomen the inferiorly to the level of the mid pelvis which probably involves the anterior margins of the mesenteries well. . Additionally, there may be localized adherence of the bowel to the posterior margin of the anterior abdominal wall at the level of the 3rd anastomotic site however no evidence to suggest complete obstruction with stool and air seen in the distal colon. . . Note that the evaluation of the stroud of the colon limited the due to the lack of oral contrast material. Followup on colonoscopy may be prudent for further evaluation PERITONEUM: No gross free intraperitoneal air. No obvious loculated/ organized fluid collections. LYMPH NODES: Multiple small nonspecific retroperitoneal lymph nodes are felt to be present. VASCULATURE: Partially calcified atherosclerotic plaque seen along the abdominal aorta and iliac arteries. No evidence of abdominal aortic or iliac artery aneurysms. BONES: Mild multilevel degenerative spondylosis of the and lumbar spine. OTHER FINDINGS: None. IMPRESSION: Apparent inflammation/edematous changes of the pancreatic head and proximal pancreatic body region consistent with pancreatitis. Recommend correlation with serum amylase and lipase. There also appears to be wall thickening of the distal pylorus and duodenum possibly reactive -secondary to the adjacent inflamed pancreatic head and body however the possibility of a primary inflammation (gastritis/ duodenitis) of the distal stomach/ duodenum or peptic ulcer not excluded. Clinical correlation recommended ; followup endoscopy may be prudent. . Status post cholecystectomy. Extensive on surgical changes of the large bowel with what appears to represent a least 3 anastomotic sites. No evidence to suggest complete obstruction though there is mild the distention of the proximal large bowel which could be functional. Evaluation of the stroud of the colon limited due to the lack of oral contrast material as well as large amount of unopacified stool. Colonoscopy followup may be prudent if further evaluation is required. See above discussion for additional details and findings.
[2017-04-02 12:10] LABS: VENOUS BLOOD GAS BASE EXCESS 0.9 mmol/L (0.0-2.0); VENOUS BLOOD PH 7.47 (7.32-7.43)
[2017-04-02 12:15] VITALS: BMI 21.9
--- NOTE | 2017-04-02 12:25 | CP.PCM.CON ---
History of Present Illness - History of Present Illness History of Present Illness: Consult Note - Dr. Rodriguez CC: Rectal bleeding HPI: Patient is a 61M with PMH of ulcerative colitis with PSH: of colectomy, abdominal hernia repair, and low anterior resection with ileostomy on 02/25/16, colectomy reversal x2 with most recent reversal on 03/16/2017 ago at [facility] who presented to [facility] ED with dizziness,weakness, shortness of breath after waking up last evening with abdominal pain with episode of hematochezia. Patient reports 3 day history of abdominal pain and bloody diarrhea. Patient reports experiencing loose stools with bright red blood. Patient reports pain was sudden in onset, sharp and suprapubic in nature. The pain woke him from sleep last evening and was not relieved by medication or positioning. Patient indicates that he recently had a colostomy reversal for which there were no post op complications. Patient indicates during these past 3 days he has had a poor appetite, nausea, and one episode of hematochezia last evening. Patient denies previous episodes of hematochezia, but does report previous episodes of blood in his stool associated with previous UC flares. Patient reports weakness, fatigue, shortness of breath. Patient denies syncope, trauma, headache, chest pain, palpitations, PMHx: Ulcerative Colitis, Pancreatitis, C. Diff PSHx: Colectomy with colostomy and reversal/Cholecystectomy, Abdominal hernia repair, Low anterior resection with Ileostomy 02/25/16 Social Hx: 1pack/day tobacco x40 years, Social alcohol use, Admits to previous marijuana use, Cocaine use in the 90s Allergies: NKDA Meds: Tylenol for pain Review of Systems - Review of Systems All systems: reviewed and no additional remarkable complaints except (otherwise mentioned in HPI) Past Patient History - Infectious Disease Hx of Infectious Diseases: None - Tetanus Immunizations Tetanus Immunization: Unknown - Past Medical History & Family History Past Medical History?: Yes - Past Social History Smoking Status: Light Smoker < 10 Cigarettes Daily Alcohol: Social Drugs: Cannabis (hx), Cocaine (hx) - CARDIAC Hx Pacemaker: No - PULMONARY Hx Respiratory Disorders: No - NEUROLOGICAL Hx Paralysis: No - HEENT Hx HEENT Problems: No - RENAL Hx Chronic Kidney Disease: No - ENDOCRINE/METABOLIC Hx Endocrine Disorders: No - HEMATOLOGICAL/ONCOLOGICAL Hx Blood Transfusions: Yes (2006) Hx Blood Transfusion Reaction: No - INTEGUMENTARY Hx Dermatological Problems: No - MUSCULOSKELETAL/RHEUMATOLOGICAL Hx Musculoskeletal Disorders: Yes (OF SPINE) - GASTROINTESTINAL Hx Gastrointestinal Disorders: Yes Hx Bowel Surgery: Yes - GENITOURINARY/GYNECOLOGICAL Hx Genitourinary Disorders: No - PSYCHIATRIC Hx Emotional Abuse: No Hx Physical Abuse: No Hx Substance Use: Yes (MARIJUANA- OCC USE LAST ON 07/27/16) - SURGICAL HISTORY Hx Cholecystectomy: Yes Other/Comment: COLOSTOMY WITH REVERSAL - ANESTHESIA Hx Anesthesia Reactions: No Meds Allergies/Adverse Reactions: Allergies Allergy/AdvReac Type Severity Reaction Status Date / Time No Known Allergies Allergy Verified 10/27/16 12:06 - Medications Medications: Current Medications Lactated Ringer's (Lactated Ringer's) 1,000 mls @ 1,000 mls/hr IV .Q1H BRIGITTE Last Admin: 04/02/17 07:23 Dose: 1,000 mls/hr Folic Acid 1 mg/ Thiamine HCl 100 mg/ Multivitamins/Vitamin C 10 ml/ Dextrose 1 ,011.2 mls @ 100 mls/hr IV .Q10H7M BRIGITTE Sodium Chloride (Sodium Chloride 0.9%) 1,000 mls @ 200 mls/hr IV .Q5H BRIGITTE Stop: 04/04/17 12:16 Morphine Sulfate (Morphine) 1 mg IVP Q3H PRN PRN Reason: Pain, moderate (4-7) Last Admin: 04/02/17 09:29 Dose: 1 mg Pantoprazole Sodium (Protonix Inj) 40 mg IVP Q12H BRIGITTE Physical Exam - Constitutional Appears: No Acute Distress - Head Exam Head Exam: ATRAUMATIC, NORMAL INSPECTION - Eye Exam Eye Exam: EOMI, PERRL. absent: Conjunctival injection - Neck Exam Neck exam: Positive for: Full Rom - Respiratory Exam Respiratory Exam: Clear to Auscultation Bilateral, NORMAL BREATHING PATTERN. absent: Rhonchi, Wheezes - Cardiovascular Exam Cardiovascular Exam: REGULAR RHYTHM, +S1, +S2. absent: Systolic Murmur - GI/Abdominal Exam GI & Abdominal Exam: Normal Bowel Sounds, Soft Additional comments: Right abdominal surgical wound, healing; previous abdominal surgery scars - Extremities Exam Extremities exam: Positive for: normal inspection. Negative for: calf tenderness, pedal edema, tenderness - Neurological Exam Neurological exam: Alert, Oriented x3 Additional comments: motor and sensory grossly intact, able to move all extremities past midline, obeys simple commands - Psychiatric Exam Psychiatric exam: Normal Affect, Normal Mood - Skin Skin Exam: Dry, Normal Color, Warm Results - Vital Signs Recent Vital Signs: Last Vital Signs Temp 97.8 F 04/02/17 09:37 Pulse 87 04/02/17 11:10 Resp 39 H 04/02/17 11:10 BP 122/105 H 04/02/17 11:01 Pulse Ox 100 04/02/17 11:10 - Labs Result Diagrams: 04/02/17 11:20 04/02/17 11:20 Labs: Laboratory Results - last 24 hr 04/02/17 04/02/17 04/02/17 10:27 11:20 11:20 WBC 14.7 H D RBC 3.40 L Hgb 9.8 L Hct 29.6 L MCV 87.1 MCH 28.8 MCHC 33.1 RDW 16.1 H Plt Count 326 MPV 9.4 Gran % 86.4 H Lymph % (Auto) 7.2 L Jack % (Auto) 6.1 H Eos % (Auto) 0.1 L Baso % (Auto) 0.2 Gran # 12.67 H Lymph # 1.1 L Jack # 0.9 H Eos # 0.0 Baso # 0.03 Sodium 132 Potassium 4.8 Chloride 102 Carbon Dioxide 24 Anion Gap 11 BUN 58 H Creatinine 1.5 Est GFR ( Amer) 58 Est GFR (Non-Af Amer) 48 Random Glucose 75 Calcium 8.7 Phosphorus 2.7 1.8 L Magnesium 1.9 1.8 Total Bilirubin 0.7 AST 27 ALT 26 Alkaline Phosphatase 59 Total Protein 5.9 Albumin 3.0 Globulin 2.8 Albumin/Globulin Ratio 1.1 Assessment & Plan - Assessment and Plan (Free Text) Assessment: 61 year old male with PMH of Ulcerative colitis recent colostomy reversal on who presents with GI bleed Plan: - H/H on admission 02/10, s/p 2 units of pRBC, continue to trend - VSS, No leukocytosis - CT abdomen/pelvis: inflammation/edematous changes of pancreatic head and body , wall thickening of distal pylorus and duodenum, , no evidence of complete obstruction of large bowel, mild distention of proximal large bowel, large amount of unopacified stool, recs for endoscopy, colonoscopy, amylase/lipase for clinical correlation - NPO, IV PPI - f/u labwork - GI following, f/u recs - Plan to discuss potential intervention with Dr. Michael Cook PGY1 - Date & Time Date: 04/02/17 Time: 12:30
--- NOTE | 2017-04-02 14:15 | RAD ---
HISTORY: gi bleed COMPARISON: Comparison chest 02/20/2016. FINDINGS: LUNGS: Right lung is clear. Elevation left hemidiaphragm more so along the lateral border with minimal blunting of the left CP angle likely due to some chronic pleural thickening with some linear scarring in the left lateral lung base. PLEURA: As above. No pneumothorax apparent. CARDIOVASCULAR: Heart size normal. OSSEOUS STRUCTURES: No significant abnormalities. VISUALIZED UPPER ABDOMEN: Normal. OTHER FINDINGS: None. IMPRESSION: No focal consolidation. Persistent mild elevation left hemidiaphragm more so along the lateral margin with some slight blunting left CP angle and some scarring changes in the left lateral lung base unchanged from prior study.
[2017-04-02 18:23] LABS: HEMATOCRIT 27.3 % (42.0-52.0); MEAN CELL VOLUME 86.4 fl (80.0-105.0); MEAN CORPUSCULAR HEMOGLOBIN 29.4 pg (25.0-35.0); MEAN CORPUSCULAR HGB CONC 34.1 g/dl (31.0-37.0); MEAN PLATELET VOLUME 9.2 fl (7.0-11.0); RED CELL DISTRIBUTION WIDTH 15.9 % (11.5-14.5); WHITE BLOOD COUNT 11.2 10^3/ul (4.5-11.0)
[2017-04-02] MEDS: Sodium Chloride 0.9% 1,000 ML IV SCH ×2 (19:30→19:31)
[2017-04-03 02:34] LABS: BASO # 0.02 K/mm3 (0.0-2.0); BASO % 0.3 % (0.0-3.0); EOS # 0.1 (0.0-0.7); EOS % 1.7 % (1.5-5.0); GRAN # 5.66 (1.4-6.5); GRAN % 72.3 % (50.0-68.0); HEMATOCRIT 27.1 % (42.0-52.0); LYMPH # 1.3 (1.2-3.4); LYMPH % 17.1 % (22.0-35.0); MEAN CELL VOLUME 86.6 fl (80.0-105.0); MEAN CORPUSCULAR HEMOGLOBIN 29.1 pg (25.0-35.0); MEAN CORPUSCULAR HGB CONC 33.6 g/dl (31.0-37.0); MEAN PLATELET VOLUME 9.6 fl (7.0-11.0); MONO # 0.7 (0.1-0.6); MONO % 8.6 % (1.0-6.0); RED CELL DISTRIBUTION WIDTH 16.3 % (11.5-14.5); WHITE BLOOD COUNT 7.8 10^3/ul (4.5-11.0)
--- NOTE | 2017-04-03 04:05 | HP ---
HISTORY OF PRESENT ILLNESS: The patient is a 61-year-old with longstanding history of his colon problem. The patient states that this morning he had rectal bleeding and felt intensively dizzy as if he is going to pass out. When he saw rectal bleeding, his roommate called ambulance, and he was brought to emergency room. Complaining of feeling dizzy, had left lower quadrant discomfort that seemed to have relieved after that episode. PAST MEDICAL HISTORY: Significant for ulcerative colitis, he has total colectomy done in the [facility], history of abdominal hernia repair, history of low anterior resection, and had ileostomy done that was reversed on 02/25/2016. His recent surgery was on 03/18/2017 in [facility]. The patient does admit that he was having some abdominal discomfort for the last 2 to 3 days, but had bloody diarrhea only today. His past medical history is also consistent with cholecystectomy and ventral hernia repair. SOCIAL HISTORY: He is an active smoker for last 40 years, socially drinks. He uses marijuana and cocaine once in a while. ALLERGIES: HE IS NOT ALLERGIC TO ANY MEDICATIONS. MEDICATIONS AT HOME: He is on multivitamin. REVIEW OF SYSTEMS: Significant for generalized weakness and left lower quadrant discomfort. PHYSICAL EXAMINATION: GENERAL: He is awake, alert, oriented, and communicative. VITAL SIGNS: He is afebrile, pulse 86, respirations 29, blood pressure 89/41. LUNGS: Bilaterally good airflow. No rhonchi or crackles. HEART: S1 and S2 audible. ABDOMEN: Soft. Slight left lower quadrant discomfort. He has a granulating wound just below his umbilicus. EXTREMITIES: Bilateral legs, no edema. LABORATORY DATA: WBC is 14.7, hemoglobin 9.8, hematocrit 29.6, and platelet of 326. PT 12.4 and INR 1.12. Chemistry; sodium 132, potassium 4.8, chloride 102, CO2 24, BUN 58, creatinine 1.5, and blood sugar of 75. Flu test is negative. She also had a CT scan of the abdomen and pelvis done that showed inflammatory edematous changes of pancreatic head and proximal pancreatic body consistent with pancreatitis. Distal pylorus and duodenal thickening secondary to inflamed pancreas along with ascites and duodenitis. ASSESSMENT: 1. Rectal bleeding, status post reversal of ileostomy. 2. Pancreatitis. 3. Hypotension. 4. Renal insufficiency. PLAN: We will keep the patient n.p.o. We will give IV fluids. Analgesics as needed. He is on Protonix. Dr. Balderrama to evaluate the patient. Surgical consult has been requested. We will follow up his CBC, CMP, and amylase and lipase in a.m. Elle Carvajal MD
[2017-04-03] MEDS: Morphine 2 mg/ml ISec IVP PRN ×3 (05:45→20:25)
[2017-04-03 06:10] LABS: ALKALINE PHOSPHATASE 50 U/L (38-126); ALT/SGPT 24 U/L (7-56); AST/SGOT 27 U/L (17-59); BILIRUBIN,TOTAL 0.5 mg/dL (0.2-1.3); BLOOD UREA NITROGEN 44 mg/dL (7-21); CALCIUM 8.2 mg/dL (8.4-10.5); CARBON DIOXIDE 20 mmol/L (21-33); CHLORIDE 106 mmol/L (98-107); GFR AFRICAN-AMERICAN > 60; GLUCOSE,RANDOM 75 mg/dL (70-110); POTASSIUM 3.8 mmol/L (3.6-5.0); SODIUM 133 mmol/L (132-148); TOTAL PROTEIN 5.3 g/dL (5.8-8.3)
[2017-04-03] MEDS: Sodium Chloride 0.9% 1,000 ML IV SCH ×3 (08:20→21:30)
[2017-04-03] MEDS ORDERED: Folic Acid 1 MG, Thiamine 100 MG, Multivitamin (MVI) 10 ML in Dextrose 5% In Water 1,00... IV SCH (08:30)
--- NOTE | 2017-04-03 09:31 | CARD ---
APPROVED REPORT EKG Measurement Heart [id number] <Conclusion> Sinus tachycardia Otherwise normal ECG No change except faster rate.
--- NOTE | 2017-04-03 09:48 | CP.PCM.PN ---
Subjective - Date & Time of Evaluation Date of Evaluation: 04/03/17 Time of Evaluation: 07:10 - Subjective Subjective: General Surgery- Dr. Rodriguez Patient seen and examined at bedside this morning. No acute events overnight. nursing notes reviewed. Patient resting comfortably at bedside. Objective - Vital Signs/Intake and Output Vital Signs (last 24 hours): Temp Pulse Resp BP Pulse Ox 98.5 F 65 12 85/55 L 100 04/03/17 08:00 04/03/17 08:30 04/03/17 08:30 04/03/17 08:28 04/03/17 08:30 Intake and Output: 04/03/17 04/03/17 06:59 18:59 Intake Total 2400 Output Total 850 Balance 1550 - Medications Medications: Current Medications Folic Acid 1 mg/ Thiamine HCl 100 mg/ Multivitamins/Vitamin C 10 ml/ Dextrose 1 ,011.2 mls @ 100 mls/hr IV .Q10H7M [facility] Stop: 04/03/17 18:30 Sodium Chloride (Sodium Chloride 0.9%) 1,000 mls @ 150 mls/hr IV .Q6H40M [facility] Stop: 04/04/17 12:16 Last Admin: 04/03/17 08:20 Dose: 150 mls/hr Morphine Sulfate (Morphine) 1 mg IVP Q3H PRN PRN Reason: Pain, moderate (4-7) Last Admin: 04/03/17 05:45 Dose: 1 mg Pantoprazole Sodium (Protonix Inj) 40 mg IVP Q12H [facility] Last Admin: 04/03/17 09:09 Dose: 40 mg - Labs Labs: 04/03/17 02:05 04/03/17 05:15 PT 12.4 SECONDS (9.4-12.5) 04/02/17 08:09 INR 1.12 (0.93-1.08) H 04/02/17 08:09 APTT 26.0 Seconds (25.1-36.5) 04/02/17 08:09 - Constitutional Appears: Non-toxic, No Acute Distress - Eye Exam Eye Exam: EOMI. absent: Scleral icterus - ENT Exam ENT Exam: Mucous Membranes Moist - Respiratory Exam Respiratory Exam: NORMAL BREATHING PATTERN. absent: Accessory Muscle Use, Respiratory Distress - Cardiovascular Exam Cardiovascular Exam: +S1, +S2. absent: Bradycardia, Tachycardia - GI/Abdominal Exam GI & Abdominal Exam: Soft. absent: Distended, Firm, Guarding, Rigid - Neurological Exam Neurological Exam: Awake - Psychiatric Exam Psychiatric exam: Normal Affect - Skin Skin Exam: Warm Assessment and Plan - Assessment and Plan (Free Text) Assessment: 61M w/ Ulcerative colitis recent colostomy reversal on 03/26/17 who presents with GI bleed Plan: - plan for colonoscopy today by GI - f/u GI recs - no acute surgical intervention at this time - further recommendations per Dr. Rodriguez Surgical attending Adam Michele PGY1
[2017-04-03 10:12] LABS: BASO # 0.04 K/mm3 (0.0-2.0); BASO % 0.6 % (0.0-3.0); EOS # 0.1 (0.0-0.7); EOS % 1.6 % (1.5-5.0); GRAN # 5.19 (1.4-6.5); GRAN % 76.6 % (50.0-68.0); HEMATOCRIT 26.5 % (42.0-52.0); LYMPH # 0.9 (1.2-3.4); LYMPH % 13.4 % (22.0-35.0); MEAN CELL VOLUME 87.5 fl (80.0-105.0); MEAN CORPUSCULAR HEMOGLOBIN 28.7 pg (25.0-35.0); MEAN CORPUSCULAR HGB CONC 32.8 g/dl (31.0-37.0); MEAN PLATELET VOLUME 9.2 fl (7.0-11.0); MONO # 0.5 (0.1-0.6); MONO % 7.8 % (1.0-6.0); RED CELL DISTRIBUTION WIDTH 16.2 % (11.5-14.5); WHITE BLOOD COUNT 6.8 10^3/ul (4.5-11.0)
--- NOTE | 2017-04-03 10:39 | CP.CCUPN ---
<Dimitris Michel - Last Filed: 04/03/17 10:34> CCU Subjective - Physician Review Subjective (Free Text): Pt seen and examined at bedside. No acute events overnight. Pt with one dark bowel movement this morning. No hematemesis overnight. Denies CP, SOB, N/V/D, fever, chills. CCU Objective - Vital Signs / Intake & Output Vital Signs (Last 4 hours): Vital Signs Temp Pulse Resp BP Pulse Ox 04/03/17 08:30 65 12 100 04/03/17 08:28 58 L 13 85/55 L 100 04/03/17 08:20 63 15 98 04/03/17 08:10 61 18 98 04/03/17 08:00 98.5 F 60 87/39 L 99 04/03/17 07:50 67 39 H 99 04/03/17 07:40 66 24 97 04/03/17 07:30 68 22 98 04/03/17 07:20 59 L 15 97 04/03/17 07:10 73 15 98 04/03/17 07:00 75 73 H 97/45 L 98 04/03/17 06:50 66 14 97 04/03/17 06:40 64 13 98 Intake and Output (Last 8hrs): Intake & Output 04/02/17 04/03/17 04/03/17 22:59 06:59 14:59 Intake Total 1700 2400 Output Total 350 850 Balance 1350 1550 Intake: IV 1500 2400 Left Forearm 1500 2400 Oral 200 Output: Urine 350 850 Urine, Voided 350 850 Other: # Bowel Movements 0 - Physical Exam Head: Positive for: Atraumatic, Normocephalic Pupils: Positive for: PERRL Extroacular Muscles: Positive for: EOMI Conjunctiva: Positive for: Normal Mouth: Positive for: Moist Mucous Membranes Neck: Positive for: Normal Range of Motion Respiratory/Chest: Positive for: Clear to Auscultation, Good Air Exchange. Negative for: Respiratory Distress, Accessory Muscle Use Cardiovascular: Positive for: Regular Rate and Rhythm, Normal S1, S2. Negative for: Murmurs Abdomen: Positive for: Normal Bowel Sounds, Other (Healing surgical wound to right abdomen ; multiple old scars). Negative for: Tenderness, Distention, Peritoneal Signs Back: Positive for: Normal Inspection Upper Extremity: Positive for: Normal Inspection. Negative for: Cyanosis, Edema Lower Extremity: Positive for: Normal Inspection. Negative for: Edema Neurological: Positive for: GCS=15, CN II-XII Intact, Speech Normal Skin: Positive for: Warm, Dry, Normal Color. Negative for: Rashes Psychiatric: Positive for: Alert, Oriented x 3, Normal Insight, Normal Concentration - Medications Active Medications: Active Medications Generic Name Dose Route Start Last Admin Trade Name Freq PRN Reason Stop Dose Admin Folic Acid 1 mg/ Thiamine HCl 1,011.2 mls @ 100 mls/hr 04/03/17 08:30 10:24 100 mg/ Multivitamins/Vitamin IV 04/03/17 18:30 100 mls/hr C 10 ml/ Dextrose .Q10H7M BRIGITTE Administration Sodium Chloride 1,000 mls @ 150 mls/hr 04/03/17 08:17 04/03/17 08:20 Sodium Chloride 0.9% IV 04/04/17 12:16 150 mls/hr .Q6H40M BRIGITTE Administration Morphine Sulfate 1 mg 04/02/17 08:26 04/03/17 05:45 Morphine IVP 1 mg Q3H PRN Administration Pain, moderate (4-7) Pantoprazole Sodium 40 mg 04/02/17 08:30 04/03/17 09:09 Protonix Inj IVP 40 mg Q12H BRIGITTE Administration - Patient Studies Lab Studies: Lab Studies 04/03/17 04/03/17 04/03/17 Range/Units 09:45 05:15 02:05 WBC 6.8 7.8 D (4.5-11.0) 10^3/ul RBC 3.03 L 3.13 L (3.5-6.1) 10^6/uL Hgb 8.7 L 9.1 L (14.0-18.0) g/dL Hct 26.5 L 27.1 L (42.0-52.0) % MCV 87.5 86.6 (80.0-105.0) fl MCH 28.7 29.1 (25.0-35.0) pg MCHC 32.8 33.6 (31.0-37.0) g/dl RDW 16.2 H 16.3 H (11.5-14.5) % Plt Count 294 282 (120.0-450.0) 10^3/uL MPV 9.2 9.6 (7.0-11.0) fl Gran % 76.6 H 72.3 H (50.0-68.0) % Lymph % (Auto) 13.4 L 17.1 L (22.0-35.0) % [place] % (Auto) 7.8 H 8.6 H (1.0-6.0) % Eos % (Auto) 1.6 1.7 (1.5-5.0) % Baso % (Auto) 0.6 0.3 (0.0-3.0) % Gran # 5.19 5.66 (1.4-6.5) Lymph # 0.9 L 1.3 (1.2-3.4) [place] # 0.5 0.7 H (0.1-0.6) Eos # 0.1 0.1 (0.0-0.7) Baso # 0.04 0.02 (0.0-2.0) K/mm3 pO2 (30-55) mm/Hg VBG pH (7.32-7.43) VBG pCO2 (40-60) VBG HCO3 (21-28) mmol/l VBG Total CO2 (22-28) mmol.L VBG O2 Sat (Calc) (40-65) % VBG Base Excess (0.0-2.0) mmol/L VBG Potassium (3.6-5.2) mmol/L Glucose (75-110) mg/dl Lactate (0.7-2.1) mmol/L FiO2 % Sodium 133 (132-148) mmol/L Potassium 3.8 (3.6-5.0) mmol/L Chloride 106 (98-107) mmol/L Carbon Dioxide 20 L (21-33) mmol/L Anion Gap 11 (10-20) BUN 44 H (7-21) mg/dL Creatinine 1.2 (0.8-1.5) mg/dl Est GFR ( Amer) > 60 Est GFR (Non-Af Amer) > 60 Random Glucose 75 (70-110) mg/dL Calcium 8.2 L (8.4-10.5) mg/dL Phosphorus (2.5-4.5) mg/dL Magnesium (1.7-2.2) mg/dL Total Bilirubin 0.5 (0.2-1.3) mg/dL AST 27 (17-59) U/L ALT 24 (7-56) U/L Alkaline Phosphatase 50 (38-126) U/L Total Protein 5.3 L (5.8-8.3) g/dL Albumin 2.6 L (3.0-4.8) g/dL Globulin 2.7 gm/dL Albumin/Globulin Ratio 1.0 L (1.1-1.8) Venous Blood Potassium (3.6-5.2) mmol/L 04/02/17 04/02/17 04/02/17 Range/Units 18:21 12:00 11:20 WBC 11.2 H D (4.5-11.0) 10^3/ul RBC 3.16 L (3.5-6.1) 10^6/uL Hgb 9.3 L (14.0-18.0) g/dL Hct 27.3 L (42.0-52.0) % MCV 86.4 (80.0-105.0) fl MCH 29.4 (25.0-35.0) pg MCHC 34.1 (31.0-37.0) g/dl RDW 15.9 H (11.5-14.5) % Plt Count 300 (120.0-450.0) 10^3/uL MPV 9.2 (7.0-11.0) fl Gran % (50.0-68.0) % Lymph % (Auto) (22.0-35.0) % [place] % (Auto) (1.0-6.0) % Eos % (Auto) (1.5-5.0) % Baso % (Auto) (0.0-3.0) % Gran # (1.4-6.5) Lymph # (1.2-3.4) [place] # (0.1-0.6) Eos # (0.0-0.7) Baso # (0.0-2.0) K/mm3 pO2 26 L (30-55) mm/Hg VBG pH 7.47 H (7.32-7.43) VBG pCO2 33.0 L (40-60) VBG HCO3 24.0 (21-28) mmol/l VBG Total CO2 25.0 (22-28) mmol.L VBG O2 Sat (Calc) 61.1 (40-65) % VBG Base Excess 0.9 (0.0-2.0) mmol/L VBG Potassium 5.3 H (3.6-5.2) mmol/L Glucose 94 (75-110) mg/dl Lactate 1.2 (0.7-2.1) mmol/L FiO2 21.0 % Sodium 132.0 132 (132-148) mmol/L Potassium 4.8 (3.6-5.0) mmol/L Chloride 104.0 102 (98-107) mmol/L Carbon Dioxide 24 (21-33) mmol/L Anion Gap 11 (10-20) BUN 58 H (7-21) mg/dL Creatinine 1.5 (0.8-1.5) mg/dl Est GFR ( Amer) 58 Est GFR (Non-Af Amer) 48 Random Glucose 75 (70-110) mg/dL Calcium 8.7 (8.4-10.5) mg/dL Phosphorus 1.8 L (2.5-4.5) mg/dL Magnesium 1.8 (1.7-2.2) mg/dL Total Bilirubin 0.7 (0.2-1.3) mg/dL AST 27 (17-59) U/L ALT 26 (7-56) U/L Alkaline Phosphatase 59 (38-126) U/L Total Protein 5.9 (5.8-8.3) g/dL Albumin 3.0 (3.0-4.8) g/dL Globulin 2.8 gm/dL Albumin/Globulin Ratio 1.1 (1.1-1.8) Venous Blood Potassium 5.3 H (3.6-5.2) mmol/L 04/02/17 04/02/17 Range/Units 11:20 10:27 WBC 14.7 H D (4.5-11.0) 10^3/ul RBC 3.40 L (3.5-6.1) 10^6/uL Hgb 9.8 L (14.0-18.0) g/dL Hct 29.6 L (42.0-52.0) % MCV 87.1 (80.0-105.0) fl MCH 28.8 (25.0-35.0) pg MCHC 33.1 (31.0-37.0) g/dl RDW 16.1 H (11.5-14.5) % Plt Count 326 (120.0-450.0) 10^3/uL MPV 9.4 (7.0-11.0) fl Gran % 86.4 H (50.0-68.0) % Lymph % (Auto) 7.2 L (22.0-35.0) % [place] % (Auto) 6.1 H (1.0-6.0) % Eos % (Auto) 0.1 L (1.5-5.0) % Baso % (Auto) 0.2 (0.0-3.0) % Gran # 12.67 H (1.4-6.5) Lymph # 1.1 L (1.2-3.4) [place] # 0.9 H (0.1-0.6) Eos # 0.0 (0.0-0.7) Baso # 0.03 (0.0-2.0) K/mm3 pO2 (30-55) mm/Hg VBG pH (7.32-7.43) VBG pCO2 (40-60) VBG HCO3 (21-28) mmol/l VBG Total CO2 (22-28) mmol.L VBG O2 Sat (Calc) (40-65) % VBG Base Excess (0.0-2.0) mmol/L VBG Potassium (3.6-5.2) mmol/L Glucose (75-110) mg/dl Lactate (0.7-2.1) mmol/L FiO2 % Sodium (132-148) mmol/L Potassium (3.6-5.0) mmol/L Chloride (98-107) mmol/L Carbon Dioxide (21-33) mmol/L Anion Gap (10-20) BUN (7-21) mg/dL Creatinine (0.8-1.5) mg/dl Est GFR ( Amer) Est GFR (Non-Af Amer) Random Glucose (70-110) mg/dL Calcium (8.4-10.5) mg/dL Phosphorus 2.7 (2.5-4.5) mg/dL Magnesium 1.9 (1.7-2.2) mg/dL Total Bilirubin (0.2-1.3) mg/dL AST (17-59) U/L ALT (7-56) U/L Alkaline Phosphatase (38-126) U/L Total Protein (5.8-8.3) g/dL Albumin (3.0-4.8) g/dL Globulin gm/dL Albumin/Globulin Ratio (1.1-1.8) Venous Blood Potassium (3.6-5.2) mmol/L Laboratory Results - last 24 hr 04/02/17 04/02/17 04/02/17 10:27 11:20 11:20 WBC 14.7 H D RBC 3.40 L Hgb 9.8 L Hct 29.6 L MCV 87.1 MCH 28.8 MCHC 33.1 RDW 16.1 H Plt Count 326 MPV 9.4 Gran % 86.4 H Lymph % (Auto) 7.2 L [place] % (Auto) 6.1 H Eos % (Auto) 0.1 L Baso % (Auto) 0.2 Gran # 12.67 H Lymph # 1.1 L [place] # 0.9 H Eos # 0.0 Baso # 0.03 pO2 VBG pH VBG pCO2 VBG HCO3 VBG Total CO2 VBG O2 Sat (Calc) VBG Base Excess VBG Potassium Glucose Lactate FiO2 Sodium 132 Potassium 4.8 Chloride 102 Carbon Dioxide 24 Anion Gap 11 BUN 58 H Creatinine 1.5 Est GFR ( Amer) 58 Est GFR (Non-Af Amer) 48 Random Glucose 75 Calcium 8.7 Phosphorus 2.7 1.8 L Magnesium 1.9 1.8 Total Bilirubin 0.7 AST 27 ALT 26 Alkaline Phosphatase 59 Total Protein 5.9 Albumin 3.0 Globulin 2.8 Albumin/Globulin Ratio 1.1 Venous Blood Potassium 04/02/17 04/02/17 04/03/17 12:00 18:21 02:05 WBC 11.2 H D 7.8 D RBC 3.16 L 3.13 L Hgb 9.3 L 9.1 L Hct 27.3 L 27.1 L MCV 86.4 86.6 MCH 29.4 29.1 MCHC 34.1 33.6 RDW 15.9 H 16.3 H Plt Count 300 282 MPV 9.2 9.6 Gran % 72.3 H Lymph % (Auto) 17.1 L [place] % (Auto) 8.6 H Eos % (Auto) 1.7 Baso % (Auto) 0.3 Gran # 5.66 Lymph # 1.3 [place] # 0.7 H Eos # 0.1 Baso # 0.02 pO2 26 L VBG pH 7.47 H VBG pCO2 33.0 L VBG HCO3 24.0 VBG Total CO2 25.0 VBG O2 Sat (Calc) 61.1 VBG Base Excess 0.9 VBG Potassium 5.3 H Glucose 94 Lactate 1.2 FiO2 21.0 Sodium 132.0 Potassium Chloride 104.0 Carbon Dioxide Anion Gap BUN Creatinine Est GFR ( Amer) Est GFR (Non-Af Amer) Random Glucose Calcium Phosphorus Magnesium Total Bilirubin AST ALT Alkaline Phosphatase Total Protein Albumin Globulin Albumin/Globulin Ratio Venous Blood Potassium 5.3 H 04/03/17 04/03/17 05:15 09:45 WBC 6.8 RBC 3.03 L Hgb 8.7 L Hct 26.5 L MCV 87.5 MCH 28.7 MCHC 32.8 RDW 16.2 H Plt Count 294 MPV 9.2 Gran % 76.6 H Lymph % (Auto) 13.4 L [place] % (Auto) 7.8 H Eos % (Auto) 1.6 Baso % (Auto) 0.6 Gran # 5.19 Lymph # 0.9 L [place] # 0.5 Eos # 0.1 Baso # 0.04 pO2 VBG pH VBG pCO2 VBG HCO3 VBG Total CO2 VBG O2 Sat (Calc) VBG Base Excess VBG Potassium Glucose Lactate FiO2 Sodium 133 Potassium 3.8 Chloride 106 Carbon Dioxide 20 L Anion Gap 11 BUN 44 H Creatinine 1.2 Est GFR ( Amer) > 60 Est GFR (Non-Af Amer) > 60 Random Glucose 75 Calcium 8.2 L Phosphorus Magnesium Total Bilirubin 0.5 AST 27 ALT 24 Alkaline Phosphatase 50 Total Protein 5.3 L Albumin 2.6 L Globulin 2.7 Albumin/Globulin Ratio 1.0 L Venous Blood Potassium Assessment/Plan - Assessment and Plan (Free Text) Plan: 61 y/o M with PMH of Ulcerative colitis, Colostomy and reversal presents with GI bleed and pancreatitis. Patient stable at this time. Patient will go for endoscopy this morning. GI is following. Neuro: AAOx3 Cardio: Hemodynamically stable Maintain MAP >65 Pulm: Maintain O2 sats >90% Flu negative GI: Hg stable, trend q12 Protonix 40 mg IV q12 Morphine for pain Endoscopy this AM No surgical intervention GI following, Dr. Balderrama Renal: DAVE resolved Banana Bag @ 150 cc/hr, then NS @ 150 cc/hr Replenish Electrolytes as needed Maintain euvolemia ID: Afebrile, leukocytosis resolved Maintain normothermia Endo: Maintain euglycemia No DVT prophylaxis due to GI bleed Protonix for GI prophylaxis Anand, PGY-2 <Ashwin Monaco - Last Filed: 04/03/17 10:55> CCU Objective - Vital Signs / Intake & Output Vital Signs (Last 4 hours): Vital Signs Temp Pulse Resp BP Pulse Ox 04/03/17 08:30 65 12 100 04/03/17 08:28 58 L 13 85/55 L 100 04/03/17 08:20 63 15 98 04/03/17 08:10 61 18 98 04/03/17 08:00 98.5 F 60 87/39 L 99 04/03/17 07:50 67 39 H 99 04/03/17 07:40 66 24 97 04/03/17 07:30 68 22 98 04/03/17 07:20 59 L 15 97 04/03/17 07:10 73 15 98 04/03/17 07:00 75 73 H 97/45 L 98 Intake and Output (Last 8hrs): Intake & Output 04/02/17 04/03/17 04/03/17 22:59 06:59 14:59 Intake Total 1700 2400 Output Total 350 850 Balance 1350 1550 Intake: IV 1500 2400 Left Forearm 1500 2400 Oral 200 Output: Urine 350 850 Urine, Voided 350 850 Other: # Bowel Movements 0 - Medications Active Medications: Active Medications Generic Name Dose Route Start Last Admin Trade Name Freq PRN Reason Stop Dose Admin Folic Acid 1 mg/ Thiamine HCl 1,011.2 mls @ 100 mls/hr 04/03/17 08:30 10:24 100 mg/ Multivitamins/Vitamin IV 04/03/17 18:30 100 mls/hr C 10 ml/ Dextrose .Q10H7M BRIGITTE Administration Sodium Chloride 1,000 mls @ 150 mls/hr 04/03/17 08:17 04/03/17 08:20 Sodium Chloride 0.9% IV 04/04/17 12:16 150 mls/hr .Q6H40M BRIGITTE Administration Morphine Sulfate 1 mg 04/02/17 08:26 04/03/17 05:45 Morphine IVP 1 mg Q3H PRN Administration Pain, moderate (4-7) Pantoprazole Sodium 40 mg 04/02/17 08:30 04/03/17 09:09 Protonix Inj IVP 40 mg Q12H BRIGITTE Administration - Patient Studies Lab Studies: Lab Studies 04/03/17 04/03/17 04/03/17 Range/Units 09:45 05:15 02:05 WBC 6.8 7.8 D (4.5-11.0) 10^3/ul RBC 3.03 L 3.13 L (3.5-6.1) 10^6/uL Hgb 8.7 L 9.1 L (14.0-18.0) g/dL Hct 26.5 L 27.1 L (42.0-52.0) % MCV 87.5 86.6 (80.0-105.0) fl MCH 28.7 29.1 (25.0-35.0) pg MCHC 32.8 33.6 (31.0-37.0) g/dl RDW 16.2 H 16.3 H (11.5-14.5) % Plt Count 294 282 (120.0-450.0) 10^3/uL MPV 9.2 9.6 (7.0-11.0) fl Gran % 76.6 H 72.3 H (50.0-68.0) % Lymph % (Auto) 13.4 L 17.1 L (22.0-35.0) % [place] % (Auto) 7.8 H 8.6 H (1.0-6.0) % Eos % (Auto) 1.6 1.7 (1.5-5.0) % Baso % (Auto) 0.6 0.3 (0.0-3.0) % Gran # 5.19 5.66 (1.4-6.5) Lymph # 0.9 L 1.3 (1.2-3.4) [place] # 0.5 0.7 H (0.1-0.6) Eos # 0.1 0.1 (0.0-0.7) Baso # 0.04 0.02 (0.0-2.0) K/mm3 pO2 (30-55) mm/Hg VBG pH (7.32-7.43) VBG pCO2 (40-60) VBG HCO3 (21-28) mmol/l VBG Total CO2 (22-28) mmol.L VBG O2 Sat (Calc) (40-65) % VBG Base Excess (0.0-2.0) mmol/L VBG Potassium (3.6-5.2) mmol/L Glucose (75-110) mg/dl Lactate (0.7-2.1) mmol/L FiO2 % Sodium 133 (132-148) mmol/L Potassium 3.8 (3.6-5.0) mmol/L Chloride 106 (98-107) mmol/L Carbon Dioxide 20 L (21-33) mmol/L Anion Gap 11 (10-20) BUN 44 H (7-21) mg/dL Creatinine 1.2 (0.8-1.5) mg/dl Est GFR ( Amer) > 60 Est GFR (Non-Af Amer) > 60 Random Glucose 75 (70-110) mg/dL Calcium 8.2 L (8.4-10.5) mg/dL Phosphorus (2.5-4.5) mg/dL Magnesium (1.7-2.2) mg/dL Total Bilirubin 0.5 (0.2-1.3) mg/dL AST 27 (17-59) U/L ALT 24 (7-56) U/L Alkaline Phosphatase 50 (38-126) U/L Total Protein 5.3 L (5.8-8.3) g/dL Albumin 2.6 L (3.0-4.8) g/dL Globulin 2.7 gm/dL Albumin/Globulin Ratio 1.0 L (1.1-1.8) Venous Blood Potassium (3.6-5.2) mmol/L 04/02/17 04/02/17 04/02/17 Range/Units 18:21 12:00 11:20 WBC 11.2 H D (4.5-11.0) 10^3/ul RBC 3.16 L (3.5-6.1) 10^6/uL Hgb 9.3 L (14.0-18.0) g/dL Hct 27.3 L (42.0-52.0) % MCV 86.4 (80.0-105.0) fl MCH 29.4 (25.0-35.0) pg MCHC 34.1 (31.0-37.0) g/dl RDW 15.9 H (11.5-14.5) % Plt Count 300 (120.0-450.0) 10^3/uL MPV 9.2 (7.0-11.0) fl Gran % (50.0-68.0) % Lymph % (Auto) (22.0-35.0) % [place] % (Auto) (1.0-6.0) % Eos % (Auto) (1.5-5.0) % Baso % (Auto) (0.0-3.0) % Gran # (1.4-6.5) Lymph # (1.2-3.4) [place] # (0.1-0.6) Eos # (0.0-0.7) Baso # (0.0-2.0) K/mm3 pO2 26 L (30-55) mm/Hg VBG pH 7.47 H (7.32-7.43) VBG pCO2 33.0 L (40-60) VBG HCO3 24.0 (21-28) mmol/l VBG Total CO2 25.0 (22-28) mmol.L VBG O2 Sat (Calc) 61.1 (40-65) % VBG Base Excess 0.9 (0.0-2.0) mmol/L VBG Potassium 5.3 H (3.6-5.2) mmol/L Glucose 94 (75-110) mg/dl Lactate 1.2 (0.7-2.1) mmol/L FiO2 21.0 % Sodium 132.0 132 (132-148) mmol/L Potassium 4.8 (3.6-5.0) mmol/L Chloride 104.0 102 (98-107) mmol/L Carbon Dioxide 24 (21-33) mmol/L Anion Gap 11 (10-20) BUN 58 H (7-21) mg/dL Creatinine 1.5 (0.8-1.5) mg/dl Est GFR ( Amer) 58 Est GFR (Non-Af Amer) 48 Random Glucose 75 (70-110) mg/dL Calcium 8.7 (8.4-10.5) mg/dL Phosphorus 1.8 L (2.5-4.5) mg/dL Magnesium 1.8 (1.7-2.2) mg/dL Total Bilirubin 0.7 (0.2-1.3) mg/dL AST 27 (17-59) U/L ALT 26 (7-56) U/L Alkaline Phosphatase 59 (38-126) U/L Total Protein 5.9 (5.8-8.3) g/dL Albumin 3.0 (3.0-4.8) g/dL Globulin 2.8 gm/dL Albumin/Globulin Ratio 1.1 (1.1-1.8) Venous Blood Potassium 5.3 H (3.6-5.2) mmol/L 12/21/17 Range/Units 11:20 WBC 14.7 H D (4.5-11.0) 10^3/ul RBC 3.40 L (3.5-6.1) 10^6/uL Hgb 9.8 L (14.0-18.0) g/dL Hct 29.6 L (42.0-52.0) % MCV 87.1 (80.0-105.0) fl MCH 28.8 (25.0-35.0) pg MCHC 33.1 (31.0-37.0) g/dl RDW 16.1 H (11.5-14.5) % Plt Count 326 (120.0-450.0) 10^3/uL MPV 9.4 (7.0-11.0) fl Gran % 86.4 H (50.0-68.0) % Lymph % (Auto) 7.2 L (22.0-35.0) % [place] % (Auto) 6.1 H (1.0-6.0) % Eos % (Auto) 0.1 L (1.5-5.0) % Baso % (Auto) 0.2 (0.0-3.0) % Gran # 12.67 H (1.4-6.5) Lymph # 1.1 L (1.2-3.4) [place] # 0.9 H (0.1-0.6) Eos # 0.0 (0.0-0.7) Baso # 0.03 (0.0-2.0) K/mm3 pO2 (30-55) mm/Hg VBG pH (7.32-7.43) VBG pCO2 (40-60) VBG HCO3 (21-28) mmol/l VBG Total CO2 (22-28) mmol.L VBG O2 Sat (Calc) (40-65) % VBG Base Excess (0.0-2.0) mmol/L VBG Potassium (3.6-5.2) mmol/L Glucose (75-110) mg/dl Lactate (0.7-2.1) mmol/L FiO2 % Sodium (132-148) mmol/L Potassium (3.6-5.0) mmol/L Chloride (98-107) mmol/L Carbon Dioxide (21-33) mmol/L Anion Gap (10-20) BUN (7-21) mg/dL Creatinine (0.8-1.5) mg/dl Est GFR ( Amer) Est GFR (Non-Af Amer) Random Glucose (70-110) mg/dL Calcium (8.4-10.5) mg/dL Phosphorus (2.5-4.5) mg/dL Magnesium (1.7-2.2) mg/dL Total Bilirubin (0.2-1.3) mg/dL AST (17-59) U/L ALT (7-56) U/L Alkaline Phosphatase (38-126) U/L Total Protein (5.8-8.3) g/dL Albumin (3.0-4.8) g/dL Globulin gm/dL Albumin/Globulin Ratio (1.1-1.8) Venous Blood Potassium (3.6-5.2) mmol/L Laboratory Results - last 24 hr 04/02/17 04/02/17 04/02/17 11:20 11:20 12:00 WBC 14.7 H D RBC 3.40 L Hgb 9.8 L Hct 29.6 L MCV 87.1 MCH 28.8 MCHC 33.1 RDW 16.1 H Plt Count 326 MPV 9.4 Gran % 86.4 H Lymph % (Auto) 7.2 L [place] % (Auto) 6.1 H Eos % (Auto) 0.1 L Baso % (Auto) 0.2 Gran # 12.67 H Lymph # 1.1 L [place] # 0.9 H Eos # 0.0 Baso # 0.03 pO2 26 L VBG pH 7.47 H VBG pCO2 33.0 L VBG HCO3 24.0 VBG Total CO2 25.0 VBG O2 Sat (Calc) 61.1 VBG Base Excess 0.9 VBG Potassium 5.3 H Glucose 94 Lactate 1.2 FiO2 21.0 Sodium 132 132.0 Potassium 4.8 Chloride 102 104.0 Carbon Dioxide 24 Anion Gap 11 BUN 58 H Creatinine 1.5 Est GFR ( Amer) 58 Est GFR (Non-Af Amer) 48 Random Glucose 75 Calcium 8.7 Phosphorus 1.8 L Magnesium 1.8 Total Bilirubin 0.7 AST 27 ALT 26 Alkaline Phosphatase 59 Total Protein 5.9 Albumin 3.0 Globulin 2.8 Albumin/Globulin Ratio 1.1 Venous Blood Potassium 5.3 H 04/02/17 04/03/17 04/03/17 18:21 02:05 05:15 WBC 11.2 H D 7.8 D RBC 3.16 L 3.13 L Hgb 9.3 L 9.1 L Hct 27.3 L 27.1 L MCV 86.4 86.6 MCH 29.4 29.1 MCHC 34.1 33.6 RDW 15.9 H 16.3 H Plt Count 300 282 MPV 9.2 9.6 Gran % 72.3 H Lymph % (Auto) 17.1 L [place] % (Auto) 8.6 H Eos % (Auto) 1.7 Baso % (Auto) 0.3 Gran # 5.66 Lymph # 1.3 [place] # 0.7 H Eos # 0.1 Baso # 0.02 pO2 VBG pH VBG pCO2 VBG HCO3 VBG Total CO2 VBG O2 Sat (Calc) VBG Base Excess VBG Potassium Glucose Lactate FiO2 Sodium 133 Potassium 3.8 Chloride 106 Carbon Dioxide 20 L Anion Gap 11 BUN 44 H Creatinine 1.2 Est GFR ( Amer) > 60 Est GFR (Non-Af Amer) > 60 Random Glucose 75 Calcium 8.2 L Phosphorus Magnesium Total Bilirubin 0.5 AST 27 ALT 24 Alkaline Phosphatase 50 Total Protein 5.3 L Albumin 2.6 L Globulin 2.7 Albumin/Globulin Ratio 1.0 L Venous Blood Potassium 04/03/17 09:45 WBC 6.8 RBC 3.03 L Hgb 8.7 L Hct 26.5 L MCV 87.5 MCH 28.7 MCHC 32.8 RDW 16.2 H Plt Count 294 MPV 9.2 Gran % 76.6 H Lymph % (Auto) 13.4 L [place] % (Auto) 7.8 H Eos % (Auto) 1.6 Baso % (Auto) 0.6 Gran # 5.19 Lymph # 0.9 L [place] # 0.5 Eos # 0.1 Baso # 0.04 pO2 VBG pH VBG pCO2 VBG HCO3 VBG Total CO2 VBG O2 Sat (Calc) VBG Base Excess VBG Potassium Glucose Lactate FiO2 Sodium Potassium Chloride Carbon Dioxide Anion Gap BUN Creatinine Est GFR ( Amer) Est GFR (Non-Af Amer) Random Glucose Calcium Phosphorus Magnesium Total Bilirubin AST ALT Alkaline Phosphatase Total Protein Albumin Globulin Albumin/Globulin Ratio Venous Blood Potassium Assessment/Plan - Assessment and Plan (Free Text) Plan: Patient seen and examined with residents on rounds, labs imaging reviewed, agree with residents note, with following additions/exceptions: Patient is 61yo male Hx of UC, Colostomy with reversal presents with acute pancreatitis, and GIB. Currently afebrile, HD stable, comfortable, HH stable GIB Pancreatitis Hx of EtOH abuse Recommend: - supp o2 as needed - IVF hydration - NPO - PPI drip - follow up GI - pain control - GI ppx - DVT ppx, SCDs - EGD today with GI
[2017-04-03] MEDS ORDERED: Potassium Chloride 40 mEq/30 ml LIQ UD PO ONE (10:58)
[2017-04-03] MEDS ORDERED: Potassium & Sodium Phosphate PO ONE (10:58)
[2017-04-03] MEDS ORDERED: Sodium Chloride 0.9% 1,000 ML IV SCH (12:30)
--- NOTE | 2017-04-03 13:57 | CP.PCM.CON ---
History of Present Illness - History of Present Illness History of Present Illness: Seen and examined at the bedside earlier today, the chart was reviewed. Request for GI consult is for GI bleed. HPI: This is a 61-year-old male with a significant history of ulcerative colitis with history of multiple abdominal surgeries. He has had a total colectomy done at the [facility], abdominal hernia repair, and had a lower anterior res with ileostomy 2 reversals, first 02/25/2016 and recently on De in [facility]. The patient does report decreased appetite and suprapubic discomfort. The patient came eeling weak with shortness of br and complaints of sy the patient denies He was reported to large dark BM earlier this morning. The patient denies use of NSAIDs and denies any alcohol use. On admission he had a CT scan of abdomen and pelvis without contrast reporting wall thickening of the distal pylorus and duodenum possibly reactive secondary to adjacent inflamed pancreatic head and body but the possibility of primary inflammation of the distal stomach/duodenum cannot be excluded. No reports of hematemesis. Patient denies any EGD or colonoscopy. Past medical history: Ulcerative colitis,ileal ulcer,rectal colon polyps,C diff colitis,HTN,Osteoarthrtis Past surgical history: total colectomy, abdominal hernia rep, lower anterior rese with ileostomy, 2 reversals, most recent 03/16/2017 at [facility]. Cholecystectomy, ventral hernia repa Social history: Active smoker, positive EtOH, denies any recent al history of marijuana and cocaine use. Family history: Noncontributory at this time. Allergies: Denies Medications: Reviewed as per MAR ROS: Systems reviewed with positive findings, see HPI. Past Patient History - Infectious Disease Hx of Infectious Diseases: None - Tetanus Immunizations Tetanus Immunization: Unknown - Past Medical History & Family History Past Medical History?: Yes - Past Social History Smoking Status: Light Smoker < 10 Cigarettes Daily Alcohol: Social Drugs: Cannabis (hx), Cocaine (hx) - CARDIAC Hx Pacemaker: No - PULMONARY Hx Respiratory Disorders: No - NEUROLOGICAL Hx Paralysis: No - HEENT Hx HEENT Problems: No - RENAL Hx Chronic Kidney Disease: No - ENDOCRINE/METABOLIC Hx Endocrine Disorders: No - HEMATOLOGICAL/ONCOLOGICAL Hx Blood Transfusions: Yes (2006) Hx Blood Transfusion Reaction: No - INTEGUMENTARY Hx Dermatological Problems: No - MUSCULOSKELETAL/RHEUMATOLOGICAL Hx Musculoskeletal Disorders: Yes (OF SPINE) - GASTROINTESTINAL Hx Gastrointestinal Disorders: Yes Hx Bowel Surgery: Yes - GENITOURINARY/GYNECOLOGICAL Hx Genitourinary Disorders: No - PSYCHIATRIC Hx Emotional Abuse: No Hx Physical Abuse: No Hx Substance Use: Yes (MARIJUANA- OCC USE LAST ON 07/27/16) - SURGICAL HISTORY Hx Cholecystectomy: Yes Other/Comment: COLOSTOMY WITH REVERSAL - ANESTHESIA Hx Anesthesia Reactions: No Meds Allergies/Adverse Reactions: Allergies Allergy/AdvReac Type Severity Reaction Status Date / Time No Known Allergies Allergy Verified 10/27/16 12:06 - Medications Medications: Current Medications Folic Acid 1 mg/ Thiamine HCl 100 mg/ Multivitamins/Vitamin C 10 ml/ Dextrose 1 ,011.2 mls @ 100 mls/hr IV .Q10H7M [facility] Stop: 04/03/17 18:30 Last Admin: 04/03/17 10:24 Dose: 100 mls/hr Sodium Chloride (Sodium Chloride 0.9%) 1,000 mls @ 150 mls/hr IV .Q6H40M [facility] Stop: 04/04/17 12:16 Last Admin: 04/03/17 08:20 Dose: 150 mls/hr Sodium Chloride (Sodium Chloride 0.9%) 1,000 mls @ 75 mls/hr IV .[id number] [facility] Stop: 04/03/17 14:31 Morphine Sulfate (Morphine) 1 mg IVP Q3H PRN PRN Reason: Pain, moderate (4-7) Last Admin: 04/03/17 12:52 Dose: 1 mg Pantoprazole Sodium (Protonix Inj) 40 mg IVP Q12H [facility] Last Admin: 04/03/17 09:09 Dose: 40 mg Physical Exam - Constitutional Appears: No Acute Distress - Head Exam Head Exam: NORMOCEPHALIC - Eye Exam Eye Exam: Normal appearance. absent: Scleral icterus - ENT Exam ENT Exam: Mucous Membranes Moist - Neck Exam Neck exam: Positive for: Normal Inspection - Respiratory Exam Respiratory Exam: Decreased Breath Sounds, NORMAL BREATHING PATTERN. absent: Respiratory Distress - Cardiovascular Exam Cardiovascular Exam: +S1, +S2 - GI/Abdominal Exam GI & Abdominal Exam: Normal Bowel Sounds, Soft, Tenderness (lower mid abdomen diffuse, right quadrant surgical site process of healing dressing in place, no foul smell or purulent drainage.). absent: Distended, Guarding, Rebound - Extremities Exam Extremities exam: Positive for: pedal pulses present. Negative for: calf tenderness, pedal edema - Neurological Exam Neurological exam: Alert, Oriented x3 - Skin Skin Exam: Dry, Warm Results - Vital Signs Recent Vital Signs: Last Vital Signs Temp 98.5 F 04/03/17 08:00 Pulse 65 04/03/17 08:30 Resp 12 04/03/17 08:30 BP 85/55 L 04/03/17 08:28 Pulse Ox 100 04/03/17 08:30 - Labs Result Diagrams: 04/03/17 09:45 04/03/17 05:15 Labs: Laboratory Results - last 24 hr 04/02/17 04/03/17 04/03/17 18:21 02:05 05:15 WBC 11.2 H D 7.8 D RBC 3.16 L 3.13 L Hgb 9.3 L 9.1 L Hct 27.3 L 27.1 L MCV 86.4 86.6 MCH 29.4 29.1 MCHC 34.1 33.6 RDW 15.9 H 16.3 H Plt Count 300 282 MPV 9.2 9.6 Gran % 72.3 H Lymph % (Auto) 17.1 L [place] % (Auto) 8.6 H Eos % (Auto) 1.7 Baso % (Auto) 0.3 Gran # 5.66 Lymph # 1.3 [place] # 0.7 H Eos # 0.1 Baso # 0.02 Sodium 133 Potassium 3.8 Chloride 106 Carbon Dioxide 20 L Anion Gap 11 BUN 44 H Creatinine 1.2 Est GFR ( Amer) > 60 Est GFR (Non-Af Amer) > 60 Random Glucose 75 Calcium 8.2 L Total Bilirubin 0.5 AST 27 ALT 24 Alkaline Phosphatase 50 Total Protein 5.3 L Albumin 2.6 L Globulin 2.7 Albumin/Globulin Ratio 1.0 L 04/03/17 09:45 WBC 6.8 RBC 3.03 L Hgb 8.7 L Hct 26.5 L MCV 87.5 MCH 28.7 MCHC 32.8 RDW 16.2 H Plt Count 294 MPV 9.2 Gran % 76.6 H Lymph % (Auto) 13.4 L [place] % (Auto) 7.8 H Eos % (Auto) 1.6 Baso % (Auto) 0.6 Gran # 5.19 Lymph # 0.9 L [place] # 0.5 Eos # 0.1 Baso # 0.04 Sodium Potassium Chloride Carbon Dioxide Anion Gap BUN Creatinine Est GFR ( Amer) Est GFR (Non-Af Amer) Random Glucose Calcium Total Bilirubin AST ALT Alkaline Phosphatase Total Protein Albumin Globulin Albumin/Globulin Ratio Assessment & Plan - Assessment and Plan (Free Text) Assessment: Assessment: GI bleed/rectal bleeding Anemia Status post reversal of Ulcerative colitis Pancreatitis Plan: Nothing by mouth, contin Continue PPI, on Protonix every 12 hours Plan for EGD today Monitor H&H and for overt GI bleed As per ICU team Surgery on board Thank you for this consult and for allowing us to participate in your patient's care, further recommendations based upon clinical course. Seen and discussed with Dr. Balderrama.
[2017-04-03] MEDS ORDERED: Propofol 10 mg/ml Inj (20 ML) ONE (14:45)
[2017-04-03 21:58] LABS: BASO # 0.06 K/mm3 (0.0-2.0); BASO % 0.8 % (0.0-3.0); EOS # 0.1 (0.0-0.7); EOS % 1.8 % (1.5-5.0); GRAN # 5.56 (1.4-6.5); GRAN % 75.2 % (50.0-68.0); HEMATOCRIT 26.3 % (42.0-52.0); LYMPH # 1.2 (1.2-3.4); LYMPH % 15.8 % (22.0-35.0); MEAN CORPUSCULAR HEMOGLOBIN 28.8 pg (25.0-35.0); MEAN CORPUSCULAR HGB CONC 32.7 g/dl (31.0-37.0); MEAN PLATELET VOLUME 9.3 fl (7.0-11.0); MONO # 0.5 (0.1-0.6); MONO % 6.4 % (1.0-6.0); RED CELL DISTRIBUTION WIDTH 16.3 % (11.5-14.5); WHITE BLOOD COUNT 7.4 10^3/ul (4.5-11.0)
--- NOTE | 2017-04-03 23:19 | PN ---
DATE: SUBJECTIVE: The patient is a 61-year-old, seen and examined, no more rectal bleeding. No nausea or vomiting. No diarrhea. Schedule for endoscopy today. Doing well. Asking for food. PHYSICAL EXAMINATION: VITAL SIGNS: He is afebrile, pulse 60, respirations 18, blood pressure 97/58. LUNGS: Bilateral fair air flow. No rhonchi or crackle. HEART: S1 and S2 audible. ABDOMEN: Soft. Nontender. No rebound. No guarding. He has wound below umbilicus that seems to be granulating and healing. LABORATORY DATA: WBC 6.8, hemoglobin 8.7, hematocrit 26.5, platelets of 294. Chemistry: Sodium 133, potassium 3.8, chloride 106, CO2 of 20, BUN 24, creatinine 1.2, blood sugar of 75. ASSESSMENT: 1. Status post rectal bleeding, status post endoscopy shows large ulcer. 2. Status post reversal of ileostomy. 3. Pancreatitis. 4. Active alcohol drinker. PLAN: Currently, the patient is on IV fluids. We will continue him on Protonix. We will start him on clear liquid from tomorrow. Discussed with Dr. Balderrama. Elle Carvajal MD
[2017-04-04 02:43] LABS: HEMATOCRIT 24.5 % (42.0-52.0); MEAN CELL VOLUME 88.1 fl (80.0-105.0); MEAN CORPUSCULAR HEMOGLOBIN 29.1 pg (25.0-35.0); MEAN CORPUSCULAR HGB CONC 33.1 g/dl (31.0-37.0); MEAN PLATELET VOLUME 9.1 fl (7.0-11.0); RED CELL DISTRIBUTION WIDTH 16.1 % (11.5-14.5); WHITE BLOOD COUNT 6.7 10^3/ul (4.5-11.0)
[2017-04-04] MEDS: Sodium Chloride 0.9% 1,000 ML IV SCH ×3 (04:10→17:39)
[2017-04-04 05:12] LABS: ALB/GLOB RATIO 0.9 (1.1-1.8); ALKALINE PHOSPHATASE 50 U/L (38-126); ALT/SGPT 26 U/L (7-56); AST/SGOT 63 U/L (17-59); BILIRUBIN,TOTAL 0.3 mg/dL (0.2-1.3); BLOOD UREA NITROGEN 23 mg/dL (7-21); CALCIUM 8.1 mg/dL (8.4-10.5); CARBON DIOXIDE 21 mmol/L (21-33); CHLORIDE 110 mmol/L (98-107); GFR AFRICAN-AMERICAN > 60; GLUCOSE,RANDOM 82 mg/dL (70-110); SODIUM 135 mmol/L (132-148); TOTAL PROTEIN 4.8 g/dL (5.8-8.3)
--- NOTE | 2017-04-04 07:56 | CP.PCM.PN ---
Subjective - Date & Time of Evaluation Date of Evaluation: 04/04/17 Time of Evaluation: 07:50 - Subjective Subjective: General Surgery Note for Dr. Rodriguez Patient seen and examined at bedside this morning. No acute events overnight. Patient resting comfortably at bedside. Patient has no complaints. Clear liquid diet today. Objective - Vital Signs/Intake and Output Vital Signs (last 24 hours): Temp Pulse Resp BP Pulse Ox 97.9 F 57 L 14 117/59 L 100 04/04/17 04:00 04/04/17 06:50 04/04/17 06:50 04/04/17 06:00 04/04/17 06:50 - Medications Medications: Current Medications Sodium Chloride (Sodium Chloride 0.9%) 1,000 mls @ 150 mls/hr IV .Q6H40M REPLACED BY [facility] Stop: 04/04/17 12:16 Last Admin: 04/04/17 04:10 Dose: 150 mls/hr Morphine Sulfate (Morphine) 1 mg IVP Q3H PRN PRN Reason: Pain, moderate (4-7) Last Admin: 04/03/17 20:25 Dose: 1 mg Pantoprazole Sodium (Protonix Inj) 40 mg IVP Q12H REPLACED BY [facility] Last Admin: 04/03/17 20:27 Dose: 40 mg - Labs Labs: 04/04/17 02:20 04/04/17 04:30 PT 12.4 SECONDS (9.4-12.5) 04/02/17 08:09 INR 1.12 (0.93-1.08) H 04/02/17 08:09 APTT 26.0 Seconds (25.1-36.5) 04/02/17 08:09 - Constitutional Appears: No Acute Distress - Head Exam Head Exam: ATRAUMATIC, NORMOCEPHALIC - Eye Exam Eye Exam: EOMI, Normal appearance Pupil Exam: PERRL - ENT Exam ENT Exam: Mucous Membranes Moist - Respiratory Exam Respiratory Exam: NORMAL BREATHING PATTERN - Cardiovascular Exam Cardiovascular Exam: REGULAR RHYTHM - GI/Abdominal Exam GI & Abdominal Exam: Soft, Normal Bowel Sounds. absent: Distended, Firm, Guarding, Tenderness, Rebound Additional comments: Right of midline excoriation of previous colostomy site - dressing clean, dry and intact - Extremities Exam Extremities Exam: Normal Capillary Refill - Neurological Exam Neurological Exam: Alert, Awake, Oriented x3 - Psychiatric Exam Psychiatric exam: Normal Affect, Normal Mood - Skin Skin Exam: Dry, Warm Assessment and Plan - Assessment and Plan (Free Text) Plan: 61M with Ulcerative colitis s/p colostomy reversal on 03/26/17 who presents with GI bleed -CLD, ADAT -Endoscopy showed esophageal and duodenal ulcers with no signs of active bleeding - Zachary Class III -f/u GI recommendations -No surgical intervention planned at this time -Will Discuss with Dr. Michael Beltran PGY1
[2017-04-04] MEDS: Morphine 2 mg/ml ISec IVP PRN ×3 (08:38→22:39)
--- NOTE | 2017-04-04 08:47 | PN ---
DATE: 04/04/2017 SUBJECTIVE: The patient was seen and examined at the bedside. He is comfortable. He talks in full sentences. He is not in respiratory or otherwise distress. No abdominal pain. No bowel movements. No hematemesis. PHYSICAL EXAMINATION: VITAL SIGNS: Heart rate 68, blood pressure 106/70, respiratory rate 14, and oxygen saturation 100% on room air. HEENT: Head and neck atraumatic. Mucosa dry. LUNGS: Clear to auscultation bilaterally. HEART: Regular rate and rhythm, S1 and S2 normal. ABDOMEN: Soft, nontender, nondistended. There are few scars from previous surgeries. They are not tender. MUSCULOSKELETAL: No C/C/E. NEUROLOGIC: The patient moves all extremities spontaneously. SKIN: Moist. PSYCHIATRIC: The patient is alert and oriented x3. LABORATORY DATA: Sodium 135, potassium 4, chloride 110, CO2 of 21, BUN 23, creatinine 1 down from 1.5, glucose 82, AST 63, ALT 26, total bilirubin 0.3, and albumin 4.8. WBC 6.7, hemoglobin 8.1 down from 8.6, and platelet count 287. Lactic acid today is 1.2 down from 2.7. INR 1.12. MEDICATIONS: Morphine p.r.n., Protonix 40 mg IV q.12 hours, and normal saline 160 mL/hour. ASSESSMENT AND PLAN: This 61-year-old gentleman who presented with upper gastrointestinal bleed, status post endoscopy, which revealed nonbleeding 2 ulcers in the duodenum. Since then the patient received 2 units of blood. His hemoglobin level was slightly trending down, but within 1 g, most likely it is dilutional and due to equilibration of intravascular volume. The patient is hemodynamically and respiratory castillo unstable. No signs of end-organ dysfunction. The patient is on Protonix 40 mg IV q.12 hours. We will try liquid diet today. DAVE resolved . We will continue to target euvolemia, glycemia, pneumothermia, and oxygen saturation more than 90%. We will continue with DVT and GI prophylaxis. Okay to downgrade to Medical-Surgery. ccm time 40 min Wang Negro MD [facility] # [id number] MTDWilberto
[2017-04-04 10:19] LABS: BASO # 0.03 K/mm3 (0.0-2.0); BASO % 0.4 % (0.0-3.0); EOS # 0.1 (0.0-0.7); EOS % 1.7 % (1.5-5.0); GRAN # 5.6 (1.4-6.5); GRAN % 79.6 % (50.0-68.0); LYMPH # 0.9 (1.2-3.4); LYMPH % 12.2 % (22.0-35.0); MEAN CELL VOLUME 88.3 fl (80.0-105.0); MEAN CORPUSCULAR HGB CONC 32.8 g/dl (31.0-37.0); MEAN PLATELET VOLUME 9.3 fl (7.0-11.0); MONO # 0.4 (0.1-0.6); MONO % 6.1 % (1.0-6.0); RED CELL DISTRIBUTION WIDTH 16.3 % (11.5-14.5)
[2017-04-04 17:06] VITALS: RESP 18; O2SAT 100
[2017-04-04 18:16] LABS: HEMATOCRIT 27.1 % (42.0-52.0); MEAN CELL VOLUME 88.9 fl (80.0-105.0); MEAN CORPUSCULAR HEMOGLOBIN 28.9 pg (25.0-35.0); MEAN CORPUSCULAR HGB CONC 32.5 g/dl (31.0-37.0); MEAN PLATELET VOLUME 9.2 fl (7.0-11.0); RED CELL DISTRIBUTION WIDTH 16.5 % (11.5-14.5); WHITE BLOOD COUNT 7.5 10^3/ul (4.5-11.0)
--- NOTE | 2017-04-04 19:48 | PN ---
DATE: SUBJECTIVE: The patient is 61-year-old, seen and examined, lying in bed, seems to be comfortable. No more rectal bleeding. No abdominal pain. No nausea, vomiting, or diarrhea. PHYSICAL EXAMINATION VITAL SIGNS: He is afebrile, pulse 68, respirations 20, and blood pressure 103/62. LUNGS: Bilateral good airflow. No rhonchi or crackle. HEART: S1 and S2 audible. ABDOMEN: Soft and nontender. No rebound. No guarding. He has granulating wound on his anterior abdominal wall. NEUROLOGIC: The patient is awake, alert and oriented. Able to communicate. LABORATORY DATA: WBC 7.0, hemoglobin 8.2, hematocrit 25 and platelets 308. Chemistry: Sodium 135, potassium 4.0, chloride 110, CO2 of 21, BUN 23, creatinine 1.0, blood sugar of 82. LFTs are within normal limits. ASSESSMENT AND PLAN: 1. Status post rectal bleeding. 2. Status post endoscopy showing gastric erosion. The patient does admit drinking alcohol one day prior to coming to the hospital. 3. History of total colectomy secondary to ulcerative colitis. 4. Status post ileostomy reversal. PLAN: We will start the patient on soft diet. We will continue on Protonix. Follow up his electrolytes. If he tolerate his food and his hemoglobin is stable, he might be discharged in a.m. Elle Carvajal MD
[2017-04-05 02:21] LABS: BASO # 0.04 K/mm3 (0.0-2.0); BASO % 0.6 % (0.0-3.0); EOS # 0.2 (0.0-0.7); EOS % 2.4 % (1.5-5.0); GRAN # 4.62 (1.4-6.5); GRAN % 73.3 % (50.0-68.0); LYMPH % 15.1 % (22.0-35.0); MEAN CORPUSCULAR HEMOGLOBIN 29.1 pg (25.0-35.0); MEAN CORPUSCULAR HGB CONC 32.7 g/dl (31.0-37.0); MEAN PLATELET VOLUME 9.5 fl (7.0-11.0); MONO # 0.5 (0.1-0.6); MONO % 8.6 % (1.0-6.0); RED CELL DISTRIBUTION WIDTH 16.4 % (11.5-14.5); WHITE BLOOD COUNT 6.3 10^3/ul (4.5-11.0)
[2017-04-05 07:51] LABS: BASO # 0.03 K/mm3 (0.0-2.0); BASO % 0.6 % (0.0-3.0); EOS # 0.1 (0.0-0.7); EOS % 2.1 % (1.5-5.0); GRAN # 4.01 (1.4-6.5); HEMATOCRIT 26.1 % (42.0-52.0); LYMPH # 0.7 (1.2-3.4); LYMPH % 13.1 % (22.0-35.0); MEAN CELL VOLUME 89.1 fl (80.0-105.0); MEAN CORPUSCULAR HEMOGLOBIN 28.7 pg (25.0-35.0); MEAN CORPUSCULAR HGB CONC 32.2 g/dl (31.0-37.0); MEAN PLATELET VOLUME 9.6 fl (7.0-11.0); MONO # 0.4 (0.1-0.6); MONO % 8.2 % (1.0-6.0); RED CELL DISTRIBUTION WIDTH 16.5 % (11.5-14.5); WHITE BLOOD COUNT 5.3 10^3/ul (4.5-11.0)
[2017-04-05 08:00] LABS: ALKALINE PHOSPHATASE 56 U/L (38-126); ALT/SGPT 29 U/L (7-56); AST/SGOT 29 U/L (17-59); BILIRUBIN,TOTAL 0.2 mg/dL (0.2-1.3); BLOOD UREA NITROGEN 11 mg/dL (7-21); CALCIUM 8.1 mg/dL (8.4-10.5); CARBON DIOXIDE 22 mmol/L (21-33); CHLORIDE 110 mmol/L (98-107); GFR AFRICAN-AMERICAN > 60; GLUCOSE,RANDOM 90 mg/dL (70-110); SODIUM 137 mmol/L (132-148)
[2017-04-05] MEDS: Morphine 2 mg/ml ISec IVP PRN (08:11)
[2017-04-05 09:15] VITALS: BP 117/71; PULSE 78; TEMP 98.2
--- NOTE | 2017-04-05 12:07 | CP.PCM.PN ---
Subjective - Date & Time of Evaluation Date of Evaluation: 04/05/17 Time of Evaluation: 12:04 - Subjective Subjective: Surgery Pt s&e. NAEON. Denies F/C/N/V/D/Cp/SOB/Weakness/dizziness/hematochezia/ hematemesis. Objective - Vital Signs/Intake and Output Vital Signs (last 24 hours): Temp Pulse Resp BP Pulse Ox 98.2 F 78 18 117/71 100 04/05/17 07:30 04/05/17 07:30 04/05/17 07:30 04/05/17 07:30 04/05/17 07:30 Intake and Output: 04/05/17 04/05/17 06:59 18:59 Intake Total 420 1920 Output Total 800 600 Balance -380 1320 - Medications Medications: Current Medications Morphine Sulfate (Morphine) 1 mg IVP Q3H PRN PRN Reason: Pain, moderate (4-7) Last Admin: 04/05/17 08:11 Dose: 1 mg Pantoprazole Sodium (Protonix Inj) 40 mg IVP Q12H [facility] Last Admin: 04/05/17 09:06 Dose: 40 mg - Labs Labs: 04/05/17 07:30 04/05/17 07:00 PT 12.4 SECONDS (9.4-12.5) 04/02/17 08:09 INR 1.12 (0.93-1.08) H 04/02/17 08:09 APTT 26.0 Seconds (25.1-36.5) 04/02/17 08:09 - Constitutional Appears: No Acute Distress - Head Exam Head Exam: ATRAUMATIC, NORMAL INSPECTION, NORMOCEPHALIC - Eye Exam Eye Exam: EOMI, Normal appearance, PERRL Pupil Exam: NORMAL ACCOMODATION, PERRL - ENT Exam ENT Exam: Mucous Membranes Moist, Normal Exam - Neck Exam Neck Exam: Full ROM, Normal Inspection. absent: Lymphadenopathy - Respiratory Exam Respiratory Exam: Clear to Ausculation Bilateral, NORMAL BREATHING PATTERN - Cardiovascular Exam Cardiovascular Exam: REGULAR RHYTHM, +S1, +S2. absent: Murmur - GI/Abdominal Exam GI & Abdominal Exam: Soft, Normal Bowel Sounds. absent: Distended, Firm, Guarding, Rigid, Tenderness Additional comments: Healing wound with granulation tissue. - Exam Exam: NORMAL INSPECTION - Extremities Exam Extremities Exam: Full ROM, Normal Capillary Refill, Normal Inspection. absent : Joint Swelling, Pedal Edema - Back Exam Back Exam: NORMAL INSPECTION - Neurological Exam Neurological Exam: Alert, Awake, CN II-XII Intact, Normal Gait, Oriented x3 - Psychiatric Exam Psychiatric exam: Normal Affect, Normal Mood - Skin Skin Exam: Warm. absent: Mottled, Pallor Assessment and Plan - Assessment and Plan (Free Text) Assessment: 61M with Ulcerative colitis s/p colostomy reversal with GI bleed EGD: duodenal ulcers -Regular diet -f/u GI recommendations -No surgical intervention planned at this time -Ok to DC for surgical standpoint. -Please reconsult as needed. Discussed with Dr. Rodriguez
--- NOTE | 2017-04-06 03:19 | DS ---
HISTORY OF PRESENT ILLNESS: The patient is a 61-year-old seen and examined lying in bed, seem to be comfortable. No more rectal bleeding. No diarrhea. Eating and tolerating. Anxious to go home. PHYSICAL EXAMINATION: VITAL SIGNS: Afebrile, pulse 70, respirations 18 and blood pressure 117/71. LUNGS: Bilateral free airflow. No rhonchi or crackles. HEART: S1 and S2 audible. ABDOMEN: Soft and nontender. No rebound. No guarding. NEUROLOGIC: The patient is awake, alert, oriented and communicative. LABORATORY DATA: WBC is 5.3, hemoglobin 8.4, hematocrit 26.1 and platelets of 316. Chemistry; sodium 137, potassium 4.0, chloride 110, CO2 of 22, BUN 11 and creatinine 1.0. Blood sugar 190. LFTS are within normal limits. Flu test is negative. ASSESSMENT: 1. Status post rectal bleeding. 2. Peptic ulcer disease. 3. Excessive alcohol abuser. 4. History of ileostomy that was reversed recently. 5. Status post total colectomy because of ulcerative colitis. PLAN: The patient is being discharged home on Protonix 40 mg twice a day, he is advised strictly not to take Motrin, aspirin or alcohol and he will follow with Dr. Balderrama and . Elle Carvajal MD
--- NOTE | 2017-04-07 09:35 | PN ---
DATE: 04/04/2017 SUBJECTIVE: This patient was seen and evaluated earlier today. The patient is on a liquid diet today now started and no further episodes of melena or throwing up. PHYSICAL EXAMINATION: VITAL SIGNS: Temperature 98.1, pulse 73, and blood pressure 109/71. HEENT: Atraumatic. Anicteric. NECK: Supple. HEART: S1 and S2 heard LUNGS: Bilateral air entry present. ABDOMEN: Soft. Previous surgical incision scar is noted. LABORATORY DATA: Hemoglobin is 8.5, hematocrit 26.0. BUN 23 cr 1.0 IMPRESSION Acute GI bleeding sp EGD duodenal ulcer with pigmented spot U sp reversal of colostomy and colon resection h/o ETOH absue PLAN Followup Hb/Hct High dose PPI Clear liquid diet Wendy Balderrama MD MTD[facility]berto
== END 2017-04-05 15:07 | disposition home or self-care (01) | DRG 377 ==
LOC: ED 06:00 → ERH 09:01 → ICU 10:23 → 5RSO 04-04 09:39
PROVIDERS: ADMIT Internal Medicine; ATTEND Internal Medicine
PROC: 0DB68ZX Excision of Stomach, Via Natural or Artificial Opening Endoscopic, Diagnostic (ICD-10-PCS; principal; 2017-04-03 13:30)
DX: K26.4 Chronic or unspecified duodenal ulcer with hemorrhage (principal); K85.90 Acute pancreatitis without necrosis or infection, unspecified; N17.9 Acute kidney failure, unspecified; K22.10 Ulcer of esophagus without bleeding; E78.5 Hyperlipidemia, unspecified; I10 Essential (primary) hypertension; D64.9 Anemia, unspecified; F12.90 Cannabis use, unspecified, uncomplicated; K29.50 Unspecified chronic gastritis without bleeding; F10.10 Alcohol abuse, uncomplicated; F17.210 Nicotine dependence, cigarettes, uncomplicated; Z86.010 Personal history of colon polyps; Z90.49 Acquired absence of other specified parts of digestive tract

== ENCOUNTER 2017-04-07 12:35 | Inpatient (IN) | payer MEDICARE, OTHER ==
--- NOTE | 2017-04-07 13:03 | ED PDOC ---
Arrival/HPI - General Time Seen by Provider: 04/07/17 12:45 Historian: Patient - History of Present Illness Narrative History of Present Illness (Text): 04/07/17 12:59 A 61 year old male, whose past medical history includes ulcerative colitis, colectomy with recent colostomy reversal, hypertension, hyperlipidemia, pancreatitis, and abdominal hernia repair, brought into the emergency department by EMS complaining of bilateral lower extremity weakness. Patient reports he was walking to [facility] to fill a prescription for Protonix when he felt both his legs go weak. Patient sat down on the floor outside and states he was not able to get back up. Patient notes generalized weakness and lightheadedness but denies any fever, chills, nausea, vomiting, abdominal pain, chest pain, shortness of breath or any other complaints. PMD: Dr. Velez Time/Duration: Prior to Arrival Symptom Course: Unchanged Quality: Other (weak/numb) Context: Walking Past Medical History - Provider Review Nursing Documentation Reviewed: Yes - Infectious Disease Hx of Infectious Diseases: None - Tetanus Immunization Tetanus Immunization: Unknown - Cardiac Hx Pacemaker: No - Pulmonary Hx Respiratory Disorders: No - Neurological Hx Paralysis: No - HEENT Hx HEENT Disorder: No - Renal Hx Renal Disorder: No - Endocrine/Metabolic Hx Endocrine Disorders: No - Hematological/Oncological Hx Blood Transfusions: Yes (2006) Hx Blood Transfusion Reaction: No - Integumentary Hx Dermatological Disorder: No - Musculoskeletal/Rheumatological Hx Musculoskeletal Disorders: Yes (OF SPINE) - Gastrointestinal Hx Gastrointestinal Disorders: Yes Hx Bowel Surgery: Yes - Genitourinary/Gynecological Hx Genitourinary Disorders: No - Psychiatric Hx Emotional Abuse: No Hx Physical Abuse: No Hx Substance Use: Yes (MARIJUANA- OCC USE LAST ON 07/27/16) - Surgical History Hx Cholecystectomy: Yes Other/Comment: COLOSTOMY WITH REVERSAL - Anesthesia Hx Anesthesia Reactions: No - Suicidal Assessment Feels Threatened In Home Enviroment: No Family/Social History - Physician Review Nursing Documentation Reviewed: Yes Family/Social History: No Known Family HX Smoking Status: Light Smoker < 10 Cigarettes Daily Hx Alcohol Use: Yes (SOCIAL) Hx Substance Use: Yes (MARIJUANA- OCC USE LAST ON 07/27/16) Substance used: CANNABIS Hx Substance Use Treatment: No Allergies/Home Meds Allergies/Adverse Reactions: Allergies No Known Allergies Allergy (Verified 04/07/17 13:00) Home Medications: Home Meds Medication Instructions Recorded Confirmed Loperamide HCl [Imodium A-D] 2 mg PO PRN PRN 04/07/17 04/07/17 Review of Systems - Physician Review All systems were reviewed & negative as marked: Yes - Review of Systems Constitutional: Other (generalized weakness). absent: Fevers, Night Sweats Respiratory: absent: SOB Cardiovascular: absent: Chest Pain Gastrointestinal: absent: Abdominal Pain, Nausea, Vomiting Neurological: Other (bilateral leg weakness, lightheadedness) Physical Exam Vital Signs Reviewed: Yes Vital Signs Temp Pulse Resp BP Pulse Ox 04/07/17 13:00 97.9 F 133 H 22 109/79 100 Temperature: Afebrile Blood Pressure: Normal Pulse: Tachycardic Respiratory Rate: Normal Appearance: Positive for: Other (Shivering) Pain Distress: None Mental Status: Positive for: Alert and Oriented X 3 - Systems Exam Head: Present: Atraumatic, Normocephalic Pupils: Present: PERRL Extroacular Muscles: Present: EOMI Conjunctiva: Present: Other (Pale) Mouth: Present: Moist Mucous Membranes Neck: Present: Normal Range of Motion Respiratory/Chest: Present: Clear to Auscultation, Good Air Exchange. No: Respiratory Distress, Accessory Muscle Use Cardiovascular: Present: Regular Rate and Rhythm, Normal S1, S2. No: Murmurs Abdomen: Present: Normal Bowel Sounds, Scars (Peeling surgical scar in lower abdomen. No erythema, pus or warmth.). No: Tenderness, Distention, Peritoneal Signs, Rebound, Guarding Rectal: Present: Normal Rectal Tone, Other (brown stool +guaic). No: Rectal Tenderness, Fissures Back: Present: Normal Inspection Upper Extremity: Present: Normal Inspection. No: Cyanosis, Edema Lower Extremity: Present: Normal Inspection, NORMAL PULSES, Neurovascularly Intact. No: Edema, CALF TENDERNESS, Tenderness Neurological: Present: GCS=15, CN II-XII Intact, Speech Normal, Motor Func Grossly Intact, Normal Sensory Function, Normal Cerebellar Funct Skin: Present: Warm, Dry, Normal Color. No: Rashes Psychiatric: Present: Alert, Oriented x 3, Normal Insight, Normal Concentration Medical Decision Making ED Course and Treatment: 04/07/17 12:59 Impression: A 61 year old male with bilateral leg weakness. Patient notes generalized weakness and lightheadedness. Differential Diagnosis included but are not limited to: GI Bleed Anemia vs. Dehydration vs. Electrolyte abnormality Plan: -- Chest xray -- EKG -- Labs -- Protonix -- Reassess and disposition Progress Notes: EKG shows sinus tachycardia at 107 BPM. Interpreted by me. Report Date : 04/07/2017 14:22:00 Procedure: Chest xray Dictator : Sen Toledo MD IMPRESSION: No active disease. No significant interval change compared to the prior examination(s). 04/07/17 15:36 Case was discussed with Dr. Balderrama who is aware of patient and recommends Protonix 40mg BID and PO clear liquid diet. Transfusion consent signed by patient with Sandra RN as my witness. Patient verbalizes that he understands the risks of a blood transfusion and agreed to get the blood. Case discussed with Dr. Fields who agrees to take the patient on her service. She is covering for Dr. Candelaria. Patient comfortable at this time and in no painful distress. Abdomen evaluation: soft, not tender and not distended. - Lab Interpretations Lab Results: 04/07/17 14:35 04/07/17 14:15 Lab Results 04/07/17 14:58: Blood Type Pending, Antibody Screen Pending, Crossmatch See Detail, BBK History Checked Patient has bt 04/07/17 14:35: Alcohol, Quantitative < 10 04/07/17 14:35: PT 11.9, INR 1.09 H, APTT 25.8 04/07/17 14:35: WBC 7.4 D, RBC 2.47 L, Hgb 7.2 L, Hct 22.1 L, MCV 89.5, MCH 29.1, MCHC 32.6, RDW 17.3 H, Plt Count 331, MPV 9.3, Gran % 85.1 H, Lymph % ( Auto) 9.5 L, [place] % (Auto) 4.7, Eos % (Auto) 0.3 L, Baso % (Auto) 0.4, Gran # 6.30, Lymph # 0.7 L, [place] # 0.4, Eos # 0.0, Baso # 0.03 04/07/17 14:15: Sodium 141, Potassium 4.0, Chloride 109 H, Carbon Dioxide 19 L, Anion Gap 17, BUN 20, Creatinine 1.1, Est GFR ( Amer) > 60, Est GFR (Non- Af Amer) > 60, Random Glucose 83, Calcium 9.4, Total Bilirubin 0.3, AST 23, ALT 30, Alkaline Phosphatase 68, Total Protein 6.2, Albumin 3.2, Globulin 3.0, Albumin/Globulin Ratio 1.0 L, Amylase 123, Lipase 361 H - RAD Interpretation Radiology Orders: 04/07/17 13:04 CHEST PORTABLE [RAD] Stat - Medication Orders Current Medication Orders: Sodium Chloride (Sodium Chloride 0.9%) 1,000 mls @ 999 mls/hr IV .Q1H1M STA Stop: 04/07/17 16:24 Last Admin: 04/07/17 15:31 Dose: 999 mls/hr eMAR Start Stop Document 04/07/17 15:31 OCS (Rec: 04/07/17 15:31 OCS [id number]) Intravenous Solution Start Date 04/07/17 Start Time 15:31 End Date 04/07/17 End time 16:32 Total Infusion Time 61 Discontinued Medications Pantoprazole Sodium (Protonix Inj) 40 mg IVP STAT STA Stop: 04/07/17 13:05 Last Admin: 04/07/17 15:31 Dose: 40 mg IVP Administration Document 04/07/17 15:31 OCS (Rec: 04/07/17 15:32 OCS [id number]) Charges for Administration # of IVP Administrations 1 - Scribe Statement The provider has reviewed the documentation as recorded by the Joyce Lora Provider Scribe Attestation: All medical record entries made by the Scribnithya were at my direction and personally dictated by me. I have reviewed the chart and agree that the record accurately reflects my personal performance of the history, physical exam, medical decision making, and the department course for this patient. I have also personally directed, reviewed, and agree with the discharge instructions and disposition. Disposition/Present on Arrival - Present on Arrival Any Indicators Present on Arrival: No History of DVT/PE: No History of Uncontrolled Diabetes: No Urinary Catheter: No History Surgical Site Infection Followin - Disposition Have Diagnosis and Disposition been Completed?: Yes Diagnosis: GI bleed, Anemia, Weakness Disposition: HOSPITALIZED Disposition Time: 15:40 Patient Plan: Admission Condition: GUARDED Discharge Instructions (ExitCare): Weakness (ED) Referrals: Facundo Velez MD [Primary Care Provider] - Follow up with primary
[2017-04-07 13:18] VITALS: BMI 22.9
--- NOTE | 2017-04-07 14:23 | RAD ---
HISTORY: cough r/o pna COMPARISON: 04/02/2017 FINDINGS: LUNGS: Focal scarring left base. PLEURA: Focal pleural thickening/ scarring left base. CARDIOVASCULAR: Normal. OSSEOUS STRUCTURES: No significant abnormalities. VISUALIZED UPPER ABDOMEN: Normal. OTHER FINDINGS: None. IMPRESSION: No active disease. No significant interval change compared to the prior examination(s).
[2017-04-07 14:30] LABS: ALBUMIN 3.2 g/dL (3.0-4.8); ALT/SGPT 30 U/L (7-56); AMYLASE 123 U/L (35-125); AST/SGOT 23 U/L (17-59); BLOOD UREA NITROGEN 20 mg/dL (7-21); CALCIUM 9.4 mg/dL (8.4-10.5); GFR AFRICAN-AMERICAN > 60; GFR NON-AFRICAN AMERICAN > 60; LIPASE 361 U/L (23-300)
[2017-04-07 14:51] LABS: BASO # 0.03 K/mm3 (0.0-2.0); BASO % 0.4 % (0.0-3.0); EOS % 0.3 % (1.5-5.0); GRAN # 6.3 (1.4-6.5); GRAN % 85.1 % (50.0-68.0); LYMPH # 0.7 (1.2-3.4); LYMPH % 9.5 % (22.0-35.0); MEAN CELL VOLUME 89.5 fl (80.0-105.0); MEAN CORPUSCULAR HEMOGLOBIN 29.1 pg (25.0-35.0); MEAN CORPUSCULAR HGB CONC 32.6 g/dl (31.0-37.0); MEAN PLATELET VOLUME 9.3 fl (7.0-11.0); MONO # 0.4 (0.1-0.6); MONO % 4.7 % (1.0-6.0); RBC 2.47 10^6/uL (3.5-6.1); RED CELL DISTRIBUTION WIDTH 17.3 % (11.5-14.5); WHITE BLOOD COUNT 7.4 10^3/ul (4.5-11.0)
[2017-04-07 14:55] LABS: HEMOGLOBIN 7.2 g/dL (14.0-18.0)
[2017-04-07 15:11] LABS: INR 1.09 (0.93-1.08); PARTIAL THROMBOPLASTIN TIME 25.8 Seconds (25.1-36.5); PROTHROMBIN TIME 11.9 SECONDS (9.4-12.5)
[2017-04-07] MEDS ORDERED: Sodium Chloride 0.9% 1,000 ML IV STA (15:24)
--- NOTE | 2017-04-07 17:37 | CARD ---
APPROVED REPORT EKG Measurement Heart [id number] <Conclusion> Poor data quality, interpretation may be adversely affected Sinus tachycardia Right atrial enlargement Borderline ECG
[2017-04-07 18:07] LABS: TOTAL IRON BINDING CAPACITY 299 ug/dL (261-462)
[2017-04-07 18:12] LABS: % IRON SATURATION 8 % (20-55); IRON 23 ug/dL (45-180)
[2017-04-07 21:01] LABS: FERRITIN 27.1 ng/mL
[2017-04-07 21:32] LABS: FOLATE > 20.0 ng/mL
--- NOTE | 2017-04-07 23:19 | HP ---
HISTORY OF PRESENT ILLNESS: Mr. Farfan is a 61-year-old male admitted to the hospital with hemoglobin of 7.2 gm/dL. He has active bleeding red blood per rectum. He has history of ulcerative colitis, underwent colectomy and recent colostomy reversal. He is complaining of abdominal pain. He has history of pancreatitis and pancreatic enzyme mildly elevated. History of hernia repair. No nausea, no vomiting. No fever, no chills or rigors. No dizziness. He also has history of lightheadedness and weakness. PAST MEDICAL HISTORY: Ulcerative colitis and chronic back pain. PAST SURGICAL HISTORY: Cholecystectomy, colostomy reversal, colostomy. PERSONAL HISTORY: History of marijuana use. FAMILY HISTORY: Noncontributory. PERSONAL HISTORY: Light smoker and history of marijuana use. ALLERGIES: NO KNOWN DRUG ALLERGIES. HOME MEDICATIONS: Imodium p.r.n. REVIEW OF SYSTEMS: As per HPI. Rest of 12-point review of systems reviewed negative. PHYSICAL EXAMINATION GENERAL: Comfortable in bed, mild distress due to abdominal pain with temperature 97.8, heart rate is 130, respiratory rate 22 per minute, blood pressure 109/79. Pulse ox is 100% room air. HEENT: Pallor positive. NECK: No lymphadenopathy. CHEST: Air entry present and equal bilateral. No added sound. CARDIOVASCULAR: S1, S2 normal. No murmur. No gallop. ABDOMEN: Soft, nontender. No hepatosplenomegaly. EXTREMITIES: No edema. LABORATORY DATA: White count 7.4, hemoglobin 7.2, hematocrit 22.1, platelet 331. Sodium 141, potassium 4, BUN 20, creatinine 1.1, lipase 361, amylase 123. Chest x-ray: No infiltrate. ASSESSMENT AND PLAN: 1. Severe anemia. 2. Active gastrointestinal bleeding. 3. Ulcerative colitis. 4. Recent reversal colectomy. PLAN: He will be admitted to the hospital, 2 units of blood transfusion ordered. For hemoglobin of 7.2, we will repeat the CBC in a.m. Bright red blood per rectum, we will consult GI Dr. Balderrama, has seen him in the past. Protonix 40 mg IV daily, morphine 2 mg q. 3 hours IV p.r.n. for abdominal pain. Labs ordered for tomorrow morning, CBC, BMP and iron studies. Karlie Fields MD KATARINA
[2017-04-07] MEDS: Morphine 2 mg/ml ISec IM PRN (23:34)
[2017-04-08 06:43] LABS: BASO # 0.07 K/mm3 (0.0-2.0); BASO % 1.7 % (0.0-3.0); EOS # 0.1 (0.0-0.7); EOS % 3.1 % (1.5-5.0); GRAN # 2.65 (1.4-6.5); GRAN % 63.6 % (50.0-68.0); LYMPH # 0.9 (1.2-3.4); LYMPH % 20.6 % (22.0-35.0); MEAN CELL VOLUME 88.3 fl (80.0-105.0); MEAN CORPUSCULAR HEMOGLOBIN 29.1 pg (25.0-35.0); MEAN PLATELET VOLUME 9.7 fl (7.0-11.0); MONO # 0.5 (0.1-0.6); RBC 2.3 10^6/uL (3.5-6.1); RED CELL DISTRIBUTION WIDTH 16.6 % (11.5-14.5); WHITE BLOOD COUNT 4.2 10^3/ul (4.5-11.0)
[2017-04-08 07:38] LABS: BLOOD UREA NITROGEN 15 mg/dL (7-21); CALCIUM 8.1 mg/dL (8.4-10.5); GFR AFRICAN-AMERICAN > 60; GFR NON-AFRICAN AMERICAN > 60
[2017-04-08 07:39] LABS: HEMOGLOBIN 6.7 g/dL (14.0-18.0)
[2017-04-08] MEDS: Morphine 2 mg/ml ISec IM PRN ×2 (08:27→12:22)
[2017-04-08 11:00] LABS: INR 1.11 (0.93-1.08); PROTHROMBIN TIME 12.2 SECONDS (9.4-12.5)
--- NOTE | 2017-04-08 11:26 | CP.PCM.CON ---
History of Present Illness - History of Present Illness History of Present Illness: Critical care consult HPI Patient is 61yo male with PMHx of Ulcerative Colitis, with recent colectomy and colostomy reversal, Pancreatitis, UGIB, EtOH abuse, presents with dizziness. Pt reports he never filled out his PPI from the [employer]. Pt notes he was feeling dizzy yesterday, HH 7.2, transfused 1u pRBC, repeat HH 6.7. Pt denies fever, chills, cough, chest pain, palpitations, MENSAH. Endorses diarrhea, cannot recall whether had melena, or BRBPR. NO other constitutional symptoms. Current SBP ranging 90-100, AAOx3 PMHx as above PSHx COlectomy with colostomy reversal Allergies NKDA Meds as per EMR FHx NC Review of Systems - Review of Systems Review of Systems: as per HPI Past Patient History - Infectious Disease Hx of Infectious Diseases: None - Tetanus Immunizations Tetanus Immunization: Unknown - Past Medical History & Family History Past Medical History?: Yes - Past Social History Smoking Status: Current Some Days Smoker - CARDIAC Hx Hypertension: Yes - PULMONARY Hx Respiratory Disorders: No - NEUROLOGICAL Hx Paralysis: No - HEENT Hx HEENT Problems: No - RENAL Hx Chronic Kidney Disease: No - ENDOCRINE/METABOLIC Hx Endocrine Disorders: No - HEMATOLOGICAL/ONCOLOGICAL Hx Blood Transfusions: Yes (2006) Hx Blood Transfusion Reaction: No - INTEGUMENTARY Hx Dermatological Problems: No - MUSCULOSKELETAL/RHEUMATOLOGICAL Hx Falls: Yes - GASTROINTESTINAL Hx Colostomy: Yes Hx Pancreatitis: Yes - GENITOURINARY/GYNECOLOGICAL Hx Genitourinary Disorders: No - PSYCHIATRIC Hx Substance Use: Yes - SURGICAL HISTORY Hx Surgeries: Yes - ANESTHESIA Hx Anesthesia Reactions: No Meds Allergies/Adverse Reactions: Allergies Allergy/AdvReac Type Severity Reaction Status Date / Time No Known Allergies Allergy Verified 04/07/17 13:00 - Medications Medications: Current Medications Docusate Sodium (Colace) 100 mg PO DAILY BRIGITTE Morphine Sulfate (Morphine) 2 mg IM Q4H PRN PRN Reason: Pain, moderate (4-7) Last Admin: 04/08/17 08:27 Dose: 2 mg Pantoprazole Sodium (Protonix Inj) 40 mg IVP DAILY BRIGITTE Physical Exam - Constitutional Appears: Well, Non-toxic, No Acute Distress - Head Exam Head Exam: NORMAL INSPECTION - Eye Exam Eye Exam: Normal appearance - ENT Exam ENT Exam: Mucous Membranes Moist - Neck Exam Neck exam: Positive for: Normal Inspection - Respiratory Exam Respiratory Exam: Clear to Auscultation Bilateral, NORMAL BREATHING PATTERN - Cardiovascular Exam Cardiovascular Exam: REGULAR RHYTHM, +S1, +S2 - GI/Abdominal Exam GI & Abdominal Exam: Normal Bowel Sounds, Soft Additional comments: surgical scars - Extremities Exam Extremities exam: Positive for: normal inspection - Neurological Exam Neurological exam: Alert, Oriented x3 - Psychiatric Exam Psychiatric exam: Normal Affect Results - Vital Signs Recent Vital Signs: Last Vital Signs Temp 98.7 F 04/08/17 09:40 Pulse 68 04/08/17 09:40 Resp 18 04/08/17 09:40 BP 96/57 L 04/08/17 09:40 Pulse Ox 99 04/08/17 06:00 - Labs Result Diagrams: 04/08/17 06:00 04/08/17 06:00 Labs: Laboratory Results - last 24 hr 04/07/17 04/07/17 04/08/17 17:00 17:00 06:00 WBC 4.2 L D RBC 2.30 L Hgb 6.7 L* Hct 20.3 L* MCV 88.3 MCH 29.1 MCHC 33.0 RDW 16.6 H Plt Count 233 MPV 9.7 Gran % 63.6 Lymph % (Auto) 20.6 L [place] % (Auto) 11.0 H Eos % (Auto) 3.1 Baso % (Auto) 1.7 Gran # 2.65 Lymph # 0.9 L Min[place] # 0.5 Eos # 0.1 Baso # 0.07 PT INR Fibrinogen Sodium Potassium Chloride Carbon Dioxide Anion Gap BUN Creatinine Est GFR ( Amer) Est GFR (Non-Af Amer) Random Glucose Calcium Iron 23 L TIBC 299 % Saturation 8 L Ferritin 27.1 Vitamin B12 369 Folate > 20.0 04/08/17 04/08/17 06:00 09:55 WBC RBC Hgb Hct MCV MCH MCHC RDW Plt Count MPV Gran % Lymph % (Auto) [place] % (Auto) Eos % (Auto) Baso % (Auto) Gran # Lymph # Mineral # Eos # Baso # PT 12.2 INR 1.11 H Fibrinogen 423 H Sodium 135 Potassium 3.4 L Chloride 108 H Carbon Dioxide 21 Anion Gap 9 L BUN 15 Creatinine 1.0 Est GFR ( Amer) > 60 Est GFR (Non-Af Amer) > 60 Random Glucose 83 Calcium 8.1 L Iron TIBC % Saturation Ferritin Vitamin B12 Folate Assessment & Plan - Assessment and Plan (Free Text) Assessment: 61yo male a/w Anemia Anemia GIB Dehydration Hx of Pancreatitis Hx of EtOH abuse Hx of Colectomy - currently afebrile, HD stable, SBP ranging 90-100s, AAOx3, NAD, comfortable, beingn abd exam - received 1u PRBC yesterday, HH did not appropriately respond - platelets INR wnl Recommend: - supp o2 as needed - panculture, check UA, Procal, BCX, UCx - Hold BP meds - NPO - PPI drip - consider CT A/P with Oral/IV contrast - transfuse 2u PRBC - GI follow up - maintain 2 large bore PIVs - DVT ppx, SCDs - monitor in MICU Critical care time 35 minutes
[2017-04-08] MEDS ORDERED: Midazolam 2 MG/2 ML VIAL ONE (13:05)
[2017-04-08] MEDS ORDERED: Propofol 10 mg/ml Inj (20 ML) ONE (13:05)
[2017-04-08 17:16] LABS: HEMOGLOBIN 9.7 g/dL (14.0-18.0)
[2017-04-08] MEDS: Morphine 2 mg/ml ISec IVP PRN ×2 (18:16→22:22)
[2017-04-08 21:35] LABS: HEMOGLOBIN 9.2 g/dL (14.0-18.0)
--- NOTE | 2017-04-09 01:30 | CON ---
DATE: 04/08/2017 This patient was seen and evaluated earlier today. HISTORY OF PRESENT ILLNESS: This 61-year-old patient with past medical history of ulcerative colitis, status post colon resection and status post resection with colostomy, which was recently reversed at the [facility] by Dr. Bo Dean, admitted recently with GI bleeding, on an endoscopy, he was found to have a large duodenal ulcer. The patient was having history of alcohol use. The patient was discharged home. He felt weak and lightheaded, was found to have hemoglobin of 7.2, admitted to the med/surgery floor and he was transfused a unit of blood, but repeat blood count showed hemoglobin of 6.7, subsequently transferred to the ICU. The patient had no further episodes of bleeding now. No abdominal pain. PAST MEDICAL HISTORY: Other past medical history as above. He has history of status post cholecystectomy, history of EtOH use, history of pancreatitis. ALLERGIES: NO KNOWN DRUG ALLERGY. FAMILY HISTORY: Noncontributory. REVIEW OF SYSTEMS: Positive as above. Other systems reviewed negative. PHYSICAL EXAMINATION: GENERAL: The patient is lying on the bed, not in acute distress. VITAL SIGNS: Temperature is afebrile, blood pressure 101/57, temperature 98.5, respirations 15, pulse rate 56. HEENT: Atraumatic, anicteric. NECK: Supple. HEART: S1, S2 heard. LUNGS: Bilateral air entry present. ABDOMEN: Soft. There are multiple surgical scars noticed, clear. EXTREMITIES: No cyanosis. No clubbing. NEUROLOGICAL: Alert, oriented, moves all the extremities. LABORATORY DATA: Hemoglobin 6.7, admitted with hemoglobin of 7.2, status post 1 unit of transfusion, repeat hemoglobin 6.7. The patient has received 2 units of packed RBC, received second unit on the go at the time of endoscopy. BUN 15, creatinine 1.0, potassium 3.4, sodium 135. IMPRESSION: This 61-year-old patient with a large duodenal ulcer, recently discharged from the hospital following a gastrointestinal bleeding, was readmitted with dizziness and drop in blood count. The patient had a significant drop in blood count while in the hospital. The likelihood of recurrent bleeding from the duodenal ulcer is to be considered. The patient is scheduled for an upper gastrointestinal endoscopy. RECOMMENDATION: We would recommend 1. To continue the high dose proton pump inhibitors. 2. Close followup of the hemoglobin and hematocrit. 3. Advised to quit or avoid alcohol use. The patient now denies having had any alcohol since the discharge and we will continue to closely follow up his care. The patient was scheduled for upper gastrointestinal endoscopy. Thank you very much for allowing us to participate in the care of the patient. Wendy Balderrama MD
[2017-04-09 07:10] LABS: BASO # 0.05 K/mm3 (0.0-2.0); BASO % 1.2 % (0.0-3.0); EOS # 0.1 (0.0-0.7); EOS % 2.4 % (1.5-5.0); GRAN # 3.02 (1.4-6.5); GRAN % 71.4 % (50.0-68.0); HEMOGLOBIN 9.8 g/dL (14.0-18.0); LYMPH # 0.7 (1.2-3.4); MEAN CELL VOLUME 90.1 fl (80.0-105.0); MEAN CORPUSCULAR HEMOGLOBIN 29.4 pg (25.0-35.0); MEAN CORPUSCULAR HGB CONC 32.7 g/dl (31.0-37.0); MEAN PLATELET VOLUME 9.5 fl (7.0-11.0); MONO # 0.3 (0.1-0.6); RBC 3.33 10^6/uL (3.5-6.1); RED CELL DISTRIBUTION WIDTH 16.3 % (11.5-14.5); WHITE BLOOD COUNT 4.2 10^3/ul (4.5-11.0)
[2017-04-09 07:22] LABS: ALB/GLOB RATIO 0.9 (1.1-1.8); ALBUMIN 2.4 g/dL (3.0-4.8); ALT/SGPT 33 U/L (7-56); AST/SGOT 20 U/L (17-59); BLOOD UREA NITROGEN 12 mg/dL (7-21); CALCIUM 8.3 mg/dL (8.4-10.5); GFR AFRICAN-AMERICAN > 60; GFR NON-AFRICAN AMERICAN > 60; MAGNESIUM 1.7 mg/dL (1.7-2.2)
[2017-04-09] MEDS: Morphine 2 mg/ml ISec IVP PRN ×3 (08:32→20:27)
--- NOTE | 2017-04-09 12:00 | CP.PCM.PN ---
Subjective - Date & Time of Evaluation Date of Evaluation: 04/09/17 Time of Evaluation: 07:15 - Subjective Subjective: pt seen and examined on rounds, reports no major complaints, denies melena, hematemsis, BRBPR. No other symptoms. Objective - Vital Signs/Intake and Output Vital Signs (last 24 hours): Temp Pulse Resp BP Pulse Ox 98.1 F 76 23 117/44 L 93 L 04/09/17 08:00 04/09/17 08:00 04/09/17 08:00 04/09/17 08:00 04/09/17 08:00 Intake and Output: 04/09/17 04/09/17 06:59 18:59 Intake Total 0 Output Total 600 Balance -600 - Medications Medications: Current Medications Docusate Sodium (Colace) 100 mg PO DAILY BRIGITTE Last Admin: 04/09/17 09:21 Dose: 100 mg Morphine Sulfate (Morphine) 2 mg IVP Q4H PRN PRN Reason: Pain, moderate (4-7) Last Admin: 04/09/17 08:32 Dose: 2 mg Pantoprazole Sodium (Protonix Inj) 40 mg IVP Q12H BRIGITTE - Labs Labs: 04/09/17 06:40 04/09/17 06:40 PT 12.2 SECONDS (9.4-12.5) 04/08/17 09:55 INR 1.11 (0.93-1.08) H 04/08/17 09:55 APTT 25.8 Seconds (25.1-36.5) 04/07/17 14:35 - Constitutional Appears: Well, Non-toxic, No Acute Distress - Head Exam Head Exam: NORMAL INSPECTION - Eye Exam Eye Exam: Normal appearance - ENT Exam ENT Exam: Mucous Membranes Moist - Respiratory Exam Respiratory Exam: Clear to Ausculation Bilateral, NORMAL BREATHING PATTERN - Cardiovascular Exam Cardiovascular Exam: REGULAR RHYTHM, +S1, +S2 Additional comments: surgical scar - GI/Abdominal Exam GI & Abdominal Exam: Soft, Normal Bowel Sounds - Extremities Exam Extremities Exam: Full ROM, Normal Inspection Assessment and Plan - Assessment and Plan (Free Text) Assessment: 61yo male a/w Anemia Anemia GIB Dehydration Hx of Pancreatitis Hx of EtOH abuse Hx of Colectomy - currently afebrile, HD stable, AAOx3, NAD, comfortable, benign abd exam - received 2u PRBC yesterday, HH appropriately responded, HH stable - platelets INR wnl - s/p EGD yesterday, no active bleeding Recommend: - supp o2 as needed - PPI BID - GI follow up - maintain 2 large bore PIVs - clear liquid diet - DVT ppx, SCDs - stable, transfer to telemetry
[2017-04-09] MEDS: Potassium Chloride 20 mEq ER Tab PO SCH ×2 (15:55→18:26)
--- NOTE | 2017-04-10 02:07 | PN ---
DATE: 04/09/2017 SUBJECTIVE: This patient was seen and evaluated earlier today. The patient is tolerating the diet. The patient was started on clear liquid diet now. No further episode of bleeding. Feels much better. PHYSICAL EXAMINATION: VITAL SIGNS: Temperature is 98.1, pulse 80, blood pressure is 102/43. HEENT: Atraumatic, anicteric. NECK: Supple. HEART: S1 and S2 heard. LUNGS: Bilateral air entry present. ABDOMEN: Soft. No tenderness. EXTREMITIES: No edema. No cyanosis. LABORATORY DATA: Hemoglobin 9.2, hematocrit 30, WBC 4.2, platelets 235. BUN 12, creatinine 1.0. IMPRESSION: This 61-year-old patient was admitted with gastrointestinal bleeding, has a large two duodenal ulcers. One with a pigmented spot, history of ulcerative colitis, status post colon resection, status post reversal of colostomy, history of EtOH use. RECOMMENDATIONS: Recommended to continue the Protonix, continue the clear liquid diet, followup of the hemoglobin and hematocrit. We will cautiously advance the diet because of the readmission. Thank you very much for allowing us to participate in the care of the patient. Wendy Balderrama MD MTDWilberto
[2017-04-10] MEDS: Morphine 2 mg/ml ISec IVP PRN ×4 (03:20→20:08)
[2017-04-10 07:53] LABS: BASO # 0.02 K/mm3 (0.0-2.0); BASO % 0.3 % (0.0-3.0); EOS # 0.1 (0.0-0.7); EOS % 1.6 % (1.5-5.0); GRAN # 6.12 (1.4-6.5); HEMOGLOBIN 11.7 g/dL (14.0-18.0); LYMPH # 0.7 (1.2-3.4); LYMPH % 9.8 % (22.0-35.0); MEAN CELL VOLUME 90.5 fl (80.0-105.0); MEAN CORPUSCULAR HEMOGLOBIN 29.3 pg (25.0-35.0); MEAN CORPUSCULAR HGB CONC 32.3 g/dl (31.0-37.0); MEAN PLATELET VOLUME 9.5 fl (7.0-11.0); MONO # 0.5 (0.1-0.6); MONO % 6.3 % (1.0-6.0); RED CELL DISTRIBUTION WIDTH 16.3 % (11.5-14.5); WHITE BLOOD COUNT 7.5 10^3/ul (4.5-11.0)
[2017-04-10 07:58] LABS: ALBUMIN 2.9 g/dL (3.0-4.8); ALT/SGPT 27 U/L (7-56); AST/SGOT 22 U/L (17-59); BLOOD UREA NITROGEN 15 mg/dL (7-21); CALCIUM 8.9 mg/dL (8.4-10.5); GFR AFRICAN-AMERICAN > 60; GFR NON-AFRICAN AMERICAN > 60; MAGNESIUM 1.6 mg/dL (1.7-2.2)
--- NOTE | 2017-04-10 19:51 | PN ---
DATE: 04/10/2017 SUBJECTIVE: This patient had some loose bowel movements today. No melena. PHYSICAL EXAMINATION: VITAL SIGNS: Temperature is 99, pulse 77, and blood pressure is 106/71. HEENT: Atraumatic. Anicteric. NECK: Supple. HEART: S1 and S2 heard. LUNGS: Bilateral air entry present. ABDOMEN: Soft. Well-healed surgical scar noticed. No tenderness. EXTREMITIES: No cyanosis or clubbing. NEUROLOGIC: Alert and oriented. Moves all the extremities. LABORATORY DATA: Hemoglobin 11.7, hematocrit 36.2, WBC 7.5, and platelets 292. BUN 15 and creatinine 1.0. IMPRESSION AND PLAN: This 61-year-old patient with history of ulcerative colitis, status post recent surgery for colon resection and reversal of colostomy, admitted second time with severe anemia. The patient was previously admitted with gastrointestinal bleeding, but found to have duodenal ulcer. Repeat endoscopy also showed duodenal ulcer with a pigmented spot, another ulcer with clean based. The entire duodenum showed severe duodenitis with contact bleeding. The patient is on soft diet now. The patient's hemoglobin is stable, on Protonix twice daily. We would recommend: 1. Follow up of the hemoglobin and hematocrit. 2. The patient was strictly advised to avoid alcohol. 3. The patient should go home with twice a day of Protonix at least for a month. Need to follow up with the primary physician in about one week and also advised follow up in our office. Thank you very much for allowing us to participate in the care of this patient. Wendy Balderrama MD MTDWilberto
[2017-04-11 08:05] LABS: BASO # 0.04 K/mm3 (0.0-2.0); BASO % 0.8 % (0.0-3.0); EOS # 0.1 (0.0-0.7); EOS % 2.5 % (1.5-5.0); GRAN # 3.25 (1.4-6.5); GRAN % 68.3 % (50.0-68.0); HEMOGLOBIN 10.6 g/dL (14.0-18.0); LYMPH # 0.9 (1.2-3.4); LYMPH % 18.9 % (22.0-35.0); MEAN CELL VOLUME 90.7 fl (80.0-105.0); MEAN PLATELET VOLUME 9.8 fl (7.0-11.0); MONO # 0.5 (0.1-0.6); MONO % 9.5 % (1.0-6.0); RBC 3.65 10^6/uL (3.5-6.1); RED CELL DISTRIBUTION WIDTH 16.1 % (11.5-14.5); WHITE BLOOD COUNT 4.8 10^3/ul (4.5-11.0)
[2017-04-11 08:07] VITALS: BP 107/68; PULSE 78; RESP 18; TEMP 98.9; O2SAT 96
[2017-04-11 08:18] LABS: ALB/GLOB RATIO 0.9 (1.1-1.8); ALBUMIN 2.6 g/dL (3.0-4.8); ALT/SGPT 27 U/L (7-56); AST/SGOT 17 U/L (17-59); BLOOD UREA NITROGEN 19 mg/dL (7-21); CALCIUM 8.8 mg/dL (8.4-10.5); GFR AFRICAN-AMERICAN > 60; GFR NON-AFRICAN AMERICAN > 60; MAGNESIUM 1.7 mg/dL (1.7-2.2)
[2017-04-11] MEDS: Morphine 2 mg/ml ISec IVP PRN (09:51)
--- NOTE | 2017-04-16 10:24 | PQF ANEMIA ---
04/16/17 Dr. Fields, You document severe anemia and active GI bleeding. Please specify whether anemia is acute/chronic due to GI bleed. Thank you. Clarification of your documentation is requested to better reflect the severity of illness and intensity of treatment of your patient. Indicators present [x] Anemia [] Drop in H&H from []___ to []___ [] Hypotension [x] GI Bleed [x] Transfusion(s) [] Acute bleed other sites [x] Tachycardia [] Surgical Procedure Blood Loss (expected not a complication) Other:[] Location in the medical record that reflects the above clinical findings: [] Treatment Provided: [] PHYSICIAN'S RESPONSE Based on your medical judgment of the clinical indicators outlined above, are you treating this patient for a known or suspected: [x] Acute blood loss anemia [] Chronic blood loss anemia [x] Acute on Chronic blood loss anemia [] Anemia due to malignancy [] Anemia due to chemotherapy or radiation therapy [] Anemia of Chronic Disease, please specify: [] [] Other, please indicate type of anemia []____ [] If Unable to Determine, please check the box, sign and date. Present On Admission (POA) Indicator: [x] Present at the time of admission [] Not present at the time of admission [] Clinically Undetermined In responding to this query, please exercise your independent professional judgment. The fact that a question is asked does not imply that any particular answer is desired or expected. Thank you for your clarification on this documentation. If you have any questions please call:[ ] * Thank you, [ ] accident examiner KATARINA
--- NOTE | 2017-04-19 12:31 | CP.PCM.PN ---
Subjective - Date & Time of Evaluation Date of Evaluation: 04/08/17 Time of Evaluation: 12:00 - Subjective Subjective: 04/08/2017 HISTORY OF PRESENT ILLNESS: Mr. Farfan is a 61-year-old male admitted to the hospital with hemoglobin of 7.2 gm/dL. He has active bleeding red blood per rectum. He has history of ulcerative colitis, underwent colectomy and recent colostomy reversal. He is complaining of abdominal pain. He has history of pancreatitis and pancreatic enzyme mildly elevated. History of hernia repair. No nausea, no vomiting. No fever, no chills or rigors. No dizziness. He also has history of lightheadedness and weakness. Hb declined to 6.7 gm today. having bleeding per rectum. PAST MEDICAL HISTORY: Ulcerative colitis and chronic back pain. PAST SURGICAL HISTORY: Cholecystectomy, colostomy reversal, colostomy. PERSONAL HISTORY: History of marijuana use. FAMILY HISTORY: Noncontributory. PERSONAL HISTORY: Light smoker and history of marijuana use. ALLERGIES: NO KNOWN DRUG ALLERGIES. HOME MEDICATIONS: Imodium p.r.n. REVIEW OF SYSTEMS: As per HPI. Rest of 12-point review of systems reviewed negative. PHYSICAL EXAMINATION GENERAL: Comfortable in bed, mild distress due to abdominal pain with temperature 98.8, heart rate is 110 respiratory rate 20 per minute, blood pressure 100/79. Pulse ox is 100% room air. HEENT: Pallor positive. NECK: No lymphadenopathy. CHEST: Air entry present and equal bilateral. No added sound. CARDIOVASCULAR: S1, S2 normal. No murmur. No gallop. ABDOMEN: Soft, nontender. No hepatosplenomegaly. EXTREMITIES: No edema. LABORATORY DATA: White count 7.4, hemoglobin 6.4 , hematocrit 22.1, platelet 331. Sodium 141, potassium 4, BUN 20, creatinine 1.1, lipase 361, amylase 123. Chest x-ray: No infiltrate. ASSESSMENT AND PLAN: 1. Severe anemia. 2. Active gastrointestinal bleeding. 3. Ulcerative colitis. 4. Recent reversal colectomy. PLAN: 2 units of PRBC to be given today. ICU evaluation for active bleed, possible transfer to ICU hemodynamically stable. Continue protonix BID. GI consult appreciated. colonocopy planned for tomorrow. Morphine prn for pain. Controlled with current regimen. Karlie Fields MD Objective - Vital Signs/Intake and Output Vital Signs (last 24 hours): Temp Pulse Resp BP Pulse Ox 98.9 F 78 18 107/68 96 04/11/17 08:06 04/11/17 08:06 04/11/17 08:06 04/11/17 08:06 04/11/17 11:48 - Labs Labs: 04/11/17 07:35 04/11/17 07:35 PT 12.2 SECONDS (9.4-12.5) 04/08/17 09:55 INR 1.11 (0.93-1.08) H 04/08/17 09:55 APTT 25.8 Seconds (25.1-36.5) 04/07/17 14:35
--- NOTE | 2017-04-19 12:51 | CP.PCM.PN ---
Subjective - Date & Time of Evaluation Date of Evaluation: 04/09/17 Time of Evaluation: 13:00 - Subjective Subjective: 04/09/2017 HISTORY OF PRESENT ILLNESS: Mr. Farfan is a 61-year-old male admitted to the hospital with hemoglobin of 7.2 gm/dL. He has active bleeding red blood per rectum. He has history of ulcerative colitis, underwent colectomy and recent colostomy reversal. He is complaining of abdominal pain. He has history of pancreatitis and pancreatic enzyme mildly elevated. History of hernia repair. No nausea, no vomiting. No fever, no chills or rigors. No dizziness. He also has history of lightheadedness and weakness. Hb /Hct stable. One episode for bright red bleed per rectum. having bleeding per rectum. PAST MEDICAL HISTORY: Ulcerative colitis and chronic back pain. PAST SURGICAL HISTORY: Cholecystectomy, colostomy reversal, colostomy. PERSONAL HISTORY: History of marijuana use. FAMILY HISTORY: Noncontributory. PERSONAL HISTORY: Light smoker and history of marijuana use. ALLERGIES: NO KNOWN DRUG ALLERGIES. HOME MEDICATIONS: Imodium p.r.n. REVIEW OF SYSTEMS: As per HPI. Rest of 12-point review of systems reviewed negative. PHYSICAL EXAMINATION GENERAL: Comfortable in bed, mild distress due to abdominal pain with temperature 98.8, heart rate is 110 respiratory rate 20 per minute, blood pressure 100/79. Pulse ox is 100% room air. HEENT: Pallor positive. NECK: No lymphadenopathy. CHEST: Air entry present and equal bilateral. No added sound. CARDIOVASCULAR: S1, S2 normal. No murmur. No gallop. ABDOMEN: Soft, nontender. No hepatosplenomegaly. EXTREMITIES: No edema. LABORATORY DATA: White count 7.4, hemoglobin 6.4 , hematocrit 22.1, platelet 331. Sodium 141, potassium 4, BUN 20, creatinine 1.1, lipase 361, amylase 123. Chest x-ray: No infiltrate. ASSESSMENT AND PLAN: 1. Severe anemia. 2. Active gastrointestinal bleeding. 3. Ulcerative colitis. 4. Recent reversal colectomy. 5. ETOH abuse PLAN: Hb/Hct stable today. s/p 2 units of PRBC . hemodynamically stable. Continue protonix BID. GI consult appreciated. Morphine prn for pain. Controlled with current regimen. abstinence ETOH advised. Karlie Fields MD Objective - Vital Signs/Intake and Output Vital Signs (last 24 hours): Temp Pulse Resp BP Pulse Ox 98.9 F 78 18 107/68 96 04/11/17 08:06 04/11/17 08:06 04/11/17 08:06 04/11/17 08:06 04/11/17 11:48 - Labs Labs: 04/11/17 07:35 04/11/17 07:35 PT 12.2 SECONDS (9.4-12.5) 04/08/17 09:55 INR 1.11 (0.93-1.08) H 04/08/17 09:55 APTT 25.8 Seconds (25.1-36.5) 04/07/17 14:35
--- NOTE | 2017-04-19 13:00 | CP.PCM.PN ---
Subjective - Date & Time of Evaluation Date of Evaluation: 04/10/17 Time of Evaluation: 14:00 - Subjective Subjective: 04/10/2017 HISTORY OF PRESENT ILLNESS: Mr. Farfan is a 61-year-old male admitted to the hospital with hemoglobin of 7.2 gm/dL. He has active bleeding red blood per rectum. He has history of ulcerative colitis, underwent colectomy and recent colostomy reversal. He is complaining of abdominal pain. He has history of pancreatitis and pancreatic enzyme mildly elevated. History of hernia repair. No nausea, no vomiting. No fever, no chills or rigors. No dizziness. He also has history of lightheadedness and weakness. Hb /Hct stable. No bleeding . Last transfusion 2 days ago. . PAST MEDICAL HISTORY: Ulcerative colitis and chronic back pain. PAST SURGICAL HISTORY: Cholecystectomy, colostomy reversal, colostomy. PERSONAL HISTORY: History of marijuana use. FAMILY HISTORY: Noncontributory. PERSONAL HISTORY: Light smoker and history of marijuana use. ALLERGIES: NO KNOWN DRUG ALLERGIES. HOME MEDICATIONS: Imodium p.r.n. REVIEW OF SYSTEMS: As per HPI. Rest of 12-point review of systems reviewed negative. PHYSICAL EXAMINATION GENERAL: Comfortable in bed, mild distress due to abdominal pain with temperature 97.8, heart rate is 100 respiratory rate 18 per minute, blood pressure 110/79. Pulse ox is 100% room air. HEENT: Pallor positive. NECK: No lymphadenopathy. CHEST: Air entry present and equal bilateral. No added sound. CARDIOVASCULAR: S1, S2 normal. No murmur. No gallop. ABDOMEN: Soft, nontender. No hepatosplenomegaly. EXTREMITIES: No edema. LABORATORY DATA: White count 7.4, hemoglobin 6.4 , hematocrit 22.1, platelet 331. Sodium 141, potassium 4, BUN 20, creatinine 1.1, lipase 361, amylase 123. Chest x-ray: No infiltrate. ASSESSMENT AND PLAN: 1. Severe anemia. 2. Active gastrointestinal bleeding. 3. Ulcerative colitis. 4. Recent reversal colectomy. 5. ETOH abuse PLAN: Hb/Hct stable today. s/p 2 units of PRBC . hemodynamically stable. Continue protonix BID. GI consult appreciated. dedudenal ulcer. Morphine prn for pain. Controlled with current regimen. abstinence ETOH advised. discharge planning. if stable tomorrow. Karlie Fields MD Objective - Vital Signs/Intake and Output Vital Signs (last 24 hours): Temp Pulse Resp BP Pulse Ox 98.9 F 78 18 107/68 96 04/11/17 08:06 04/11/17 08:06 04/11/17 08:06 04/11/17 08:06 04/11/17 11:48 - Labs Labs: 04/11/17 07:35 04/11/17 07:35 PT 12.2 SECONDS (9.4-12.5) 04/08/17 09:55 INR 1.11 (0.93-1.08) H 04/08/17 09:55 APTT 25.8 Seconds (25.1-36.5) 04/07/17 14:35
--- NOTE | 2017-04-19 13:06 | CP.PCM.DIS ---
Provider - Provider Date of Admission: 04/07/17 15:22 Attending physician: Karlie Fields MD Primary care physician: Facundo Velez MD Time Spent in preparation of Discharge (in minutes): 60 Hospital Course - Lab Results Lab Results: Micro Results 04/08/17 12:20 [place] MRSA Culture (Admit) - Final MRSA NOT DETECTED Most Recent Lab Values WBC 4.8 10^3/ul (4.5-11.0) D 04/11/17 07:35 RBC 3.65 10^6/uL (3.5-6.1) 04/11/17 07:35 Hgb 10.6 g/dL (14.0-18.0) L 04/11/17 07:35 Hct 33.1 % (42.0-52.0) L 04/11/17 07:35 MCV 90.7 fl (80.0-105.0) 04/11/17 07:35 MCH 29.0 pg (25.0-35.0) 04/11/17 07:35 MCHC 32.0 g/dl (31.0-37.0) 04/11/17 07:35 RDW 16.1 % (11.5-14.5) H 04/11/17 07:35 Plt Count 259 10^3/uL (120.0-450.0) 04/11/17 07:35 MPV 9.8 fl (7.0-11.0) 04/11/17 07:35 Gran % 68.3 % (50.0-68.0) H 04/11/17 07:35 Lymph % (Auto) 18.9 % (22.0-35.0) L 04/11/17 07:35 [place] % (Auto) 9.5 % (1.0-6.0) H 04/11/17 07:35 Eos % (Auto) 2.5 % (1.5-5.0) 04/11/17 07:35 Baso % (Auto) 0.8 % (0.0-3.0) 04/11/17 07:35 Gran # 3.25 (1.4-6.5) 04/11/17 07:35 Lymph # 0.9 (1.2-3.4) L 04/11/17 07:35 [place] # 0.5 (0.1-0.6) 04/11/17 07:35 Eos # 0.1 (0.0-0.7) 04/11/17 07:35 Baso # 0.04 K/mm3 (0.0-2.0) 04/11/17 07:35 PT 12.2 SECONDS (9.4-12.5) 04/08/17 09:55 INR 1.11 (0.93-1.08) H 04/08/17 09:55 APTT 25.8 Seconds (25.1-36.5) 04/07/17 14:35 Fibrinogen 423 mg/dl (200-393) H 04/08/17 09:55 Sodium 135 mmol/L (132-148) 04/11/17 07:35 Potassium 4.2 mmol/L (3.6-5.0) 04/11/17 07:35 Chloride 105 mmol/L (98-107) 04/11/17 07:35 Carbon Dioxide 25 mmol/L (21-33) 04/11/17 07:35 Anion Gap 10 (10-20) 04/11/17 07:35 BUN 19 mg/dL (7-21) 04/11/17 07:35 Creatinine 1.0 mg/dl (0.8-1.5) 04/11/17 07:35 Est GFR ( Amer) > 60 04/11/17 07:35 Est GFR (Non-Af Amer) > 60 04/11/17 07:35 Random Glucose 89 mg/dL (70-110) 04/11/17 07:35 Calcium 8.8 mg/dL (8.4-10.5) 04/11/17 07:35 Phosphorus 3.1 mg/dL (2.5-4.5) 04/11/17 07:35 Magnesium 1.7 mg/dL (1.7-2.2) 04/11/17 07:35 Iron 23 ug/dL (45-180) L 04/07/17 17:00 TIBC 299 ug/dL (261-462) 04/07/17 17:00 % Saturation 8 % (20-55) L 04/07/17 17:00 Ferritin 27.1 ng/mL 04/07/17 17:00 Total Bilirubin 0.5 mg/dL (0.2-1.3) 04/11/17 07:35 AST 17 U/L (17-59) D 04/11/17 07:35 ALT 27 U/L (7-56) 04/11/17 07:35 Alkaline Phosphatase 64 U/L (38-126) 04/11/17 07:35 Troponin I < 0.01 ng/mL 04/07/17 14:15 Total Protein 5.4 g/dL (5.8-8.3) L 04/11/17 07:35 Albumin 2.6 g/dL (3.0-4.8) L 04/11/17 07:35 Globulin 2.8 gm/dL 04/11/17 07:35 Albumin/Globulin Ratio 0.9 (1.1-1.8) L 04/11/17 07:35 Amylase 123 U/L (35-125) 04/07/17 14:15 Lipase 361 U/L (23-300) H 04/07/17 14:15 Vitamin B12 369 pg/mL (239-931) 04/07/17 17:00 Folate > 20.0 ng/mL 04/07/17 17:00 Alcohol, Quantitative < 10 mg/dL (0-10) 04/07/17 14:35 Blood Type O POSITIVE 04/07/17 14:58 Antibody Screen Negative 04/07/17 14:58 Crossmatch See Detail 04/07/17 14:58 BBK History Checked Patient has bt 04/07/17 14:58 - Hospital Course Hospital Course: 04/11/2017 1. Severe anemia. 2. Active gastrointestinal bleeding. 3. Ulcerative colitis. 4. Recent reversal colectomy. 5. ETOH abuse HOSPITAL COURSE: Mr. Farfan is a 61-year-old male admitted to the hospital with hemoglobin of 7.2 gm/dL. He has active bleeding red blood per rectum. He has history of ulcerative colitis, underwent colectomy and recent colostomy reversal. He is complaining of abdominal pain. He has history of pancreatitis and pancreatic enzyme mildly elevated. History of hernia repair. No nausea, no vomiting. No fever, no chills or rigors. No dizziness. He also has history of lightheadedness and weakness. received PRBC transfusion. GI followed. PAST MEDICAL HISTORY: Ulcerative colitis and chronic back pain. PAST SURGICAL HISTORY: Cholecystectomy, colostomy reversal, colostomy. PERSONAL HISTORY: History of marijuana use. FAMILY HISTORY: Noncontributory. PERSONAL HISTORY: Light smoker and history of marijuana use. ALLERGIES: NO KNOWN DRUG ALLERGIES. HOME MEDICATIONS: Imodium p.r.n. PHYSICAL EXAMINATION GENERAL: Comfortable in bed, mild distress due to abdominal pain with temperature 97.8, heart rate is 100 respiratory rate 18 per minute, blood pressure 110/79. Pulse ox is 100% room air. HEENT: Pallor positive. NECK: No lymphadenopathy. CHEST: Air entry present and equal bilateral. No added sound. CARDIOVASCULAR: S1, S2 normal. No murmur. No gallop. ABDOMEN: Soft, nontender. No hepatosplenomegaly. EXTREMITIES: No edema. condition on discharge : stable. FU : GI, PCP in 1 week. meds : continue protonix BID. continue home meds. Karlie Fields MD - Date & Time of H&P Date of H&P: 04/11/17 Time of H&P: 14:00 Discharge Exam - Head Exam Head Exam: NORMAL INSPECTION Discharge Plan - Discharge Medications Prescriptions: Pantoprazole Sodium [Protonix] 40 mg PO BID #20 ect - Follow Up Plan Condition: GUARDED Disposition: HOME/ ROUTINE Instructions: Gastrointestinal Bleeding (GEN), Cigarette Smoking and Your Health (GEN), Fall Prevention for Older Adults (GEN), Hypertension (GEN) Additional Instructions: FOLLOW UP WITH DR SAMUEL LOPEZ CALL AND MAKE APPOINTMENT
== END 2017-04-11 14:07 | disposition home or self-care (01) | DRG 378 ==
LOC: ED 12:35 → ERH 15:22 → 2RSO 18:26 → ICU 04-08 11:53 → 5RSO 04-09 16:39
PROVIDERS: ADMIT Internal Medicine Medical Oncology; ATTEND Internal Medicine Medical Oncology
PROC: 30233N1 Transfusion of Nonautologous Red Blood Cells into Peripheral Vein, Percutaneous Approach (ICD-10-PCS; 2017-04-07)
PROC: 0DJ08ZZ Inspection of Upper Intestinal Tract, Via Natural or Artificial Opening Endoscopic (ICD-10-PCS; principal; 2017-04-08 11:45)
DX: K26.4 Chronic or unspecified duodenal ulcer with hemorrhage (principal); K51.90 Ulcerative colitis, unspecified, without complications; F10.11 Alcohol abuse, in remission; D50.0 Iron deficiency anemia secondary to blood loss (chronic); E86.0 Dehydration; D62 Acute posthemorrhagic anemia; F17.200 Nicotine dependence, unspecified, uncomplicated; I10 Essential (primary) hypertension; K31.9 Disease of stomach and duodenum, unspecified; K29.80 Duodenitis without bleeding; Z90.49 Acquired absence of other specified parts of digestive tract; Z87.19 Personal history of other diseases of the digestive system

== ENCOUNTER 2017-10-21 19:28 | Inpatient (IN) | payer MEDICARE, OTHER ==
[2017-10-21] MEDS ORDERED: Sodium Chloride 0.9% 1,000 ML IV STA ×2 (19:49→22:23)
[2017-10-21] MEDS ORDERED: Morphine 2 mg/ml ISec IVP STA ×2 (19:49→23:09)
--- NOTE | 2017-10-21 20:00 | ED PDOC ---
Arrival/HPI - General Chief Complaint: Abdominal Pain Time Seen by Provider: 10/21/17 19:32 Historian: Patient - History of Present Illness Narrative History of Present Illness (Text): 10/21/17 19:45 A 62 year old male, whose past medical history includes ulcerative colitis, s/p coelctomy and abdominal hernia repair, and ileostomy with reversal (March 2017), presents to the emergency department complaining of watery diarrhea for the past week. Patient reports also experiencing associated abdominal discomfort , as well as erythema, skin swelling,occassional scanty discharge and tenderness from previous surgical site right lower abdomen. Patient also reports subjective fever but denies anyvomiting, appetite changes, or any other complaints at this time. No PMD Past Medical History - Provider Review Nursing Documentation Reviewed: Yes - Infectious Disease Hx of Infectious Diseases: None - Tetanus Immunization Tetanus Immunization: Unknown - Cardiac Hx Hypertension: Yes - Pulmonary Hx Respiratory Disorders: No - Neurological Hx Paralysis: No - HEENT Hx HEENT Disorder: No - Renal Hx Renal Disorder: No - Endocrine/Metabolic Hx Endocrine Disorders: No - Hematological/Oncological Hx Blood Transfusions: Yes (2006) Hx Blood Transfusion Reaction: No - Integumentary Hx Dermatological Disorder: No - Musculoskeletal/Rheumatological Hx Falls: Yes - Gastrointestinal Hx Colostomy: Yes Hx Pancreatitis: Yes - Genitourinary/Gynecological Hx Genitourinary Disorders: No - Psychiatric Hx Emotional Abuse: No Hx Physical Abuse: No Hx Substance Use: Yes - Surgical History Other/Comment: Ileostomy - Anesthesia Hx Anesthesia Reactions: No Hx Malignant Hyperthermia: No - Suicidal Assessment Feels Threatened In Home Enviroment: No Family/Social History - Physician Review Nursing Documentation Reviewed: Yes Family/Social History: No Known Family HX Smoking Status: Heavy Smoker > 10 Cigarettes Daily Hx Alcohol Use: Yes Frequency of alcohol use: Socially Hx Substance Use: Yes Substance used: MArijuana Hx Substance Use Treatment: No Allergies/Home Meds Allergies/Adverse Reactions: Allergies No Known Allergies Allergy (Verified 04/07/17 13:00) Home Medications: Home Meds Medication Instructions Recorded Confirmed Loperamide HCl [Imodium A-D] 2 mg PO PRN PRN 04/07/17 04/07/17 Review of Systems - Physician Review All systems were reviewed & negative as marked: Yes - Review of Systems Constitutional: absent: Fevers Respiratory: absent: SOB Cardiovascular: absent: Chest Pain Gastrointestinal: Abdominal Pain (associated abdominal discomfort), Diarrhea ( watery). absent: Nausea, Vomiting, Appetite Changes Physical Exam Vital Signs Temp Pulse Resp BP Pulse Ox 10/21/17 19:50 98.2 F 74 17 119/53 L 98 Temperature: Afebrile Blood Pressure: Normal Pulse: Regular Respiratory Rate: Normal Appearance: Positive for: Well-Appearing, Non-Toxic, Comfortable Pain Distress: None Mental Status: Positive for: Alert and Oriented X 3 - Systems Exam Head: Present: Atraumatic, Normocephalic Pupils: Present: PERRL Extroacular Muscles: Present: EOMI Conjunctiva: Present: Normal Mouth: Present: Moist Mucous Membranes Neck: Present: Normal Range of Motion Respiratory/Chest: Present: Clear to Auscultation, Good Air Exchange. No: Respiratory Distress, Accessory Muscle Use Cardiovascular: Present: Regular Rate and Rhythm, Normal S1, S2. No: Murmurs Abdomen: Present: Tenderness (tenderness to lower abdomen/area of erythema/ raised papule/right lower abdomen(previous surgical site)). No: Distention, Normal Bowel Sounds (bowel sounds increase), Rebound, Guarding Back: Present: Normal Inspection Upper Extremity: Present: Normal Inspection, Normal ROM. No: Cyanosis, Edema Lower Extremity: Present: Normal Inspection, Normal ROM. No: Edema Neurological: Present: GCS=15, CN II-XII Intact, Speech Normal, Motor Func Grossly Intact, Normal Sensory Function, Other (no focal deficits) Skin: Present: Warm, Dry, Normal Color. No: Rashes Psychiatric: Present: Alert, Oriented x 3, Normal Insight, Normal Concentration Medical Decision Making ED Course and Treatment: 10/21/17 19:48 Impression: 62 year old male with watery diarrhea and associated abdominal discomfort. Plan: -- Abd/Pelvis CT -- Labs -- Morphine -- Protonix -- IV Fluids -- Zofran -- Reassess and disposition Progress Notes: 10/21/17 22:05 CT Abdomen and Pelvis shows: Lung bases: Bibasal atelectasis affects the lungs. ABDOMEN: Liver: The liver is unremarkable. Gallbladder and bile ducts: There has been a cholecystectomy. No biliary ductal dilatation. Pancreas: The pancreas is unremarkable. Spleen: The spleen is unremarkable. Adrenals: The adrenal glands are unremarkable. Kidneys and ureters: 2.5 cm cystic lesion in the left kidney with enhancing septation which has increased in size compared 2 cm in 2017. Symmetric renal enhancement without hydronephrosis. Subcentimeter bilateral renal hypodensities are too small to characterize. Stomach and bowel: Post colectomy with ileoanal pouch. Stable mild to moderate fluid filled dilatation of central abdominal and right lower quadrant small bowel loops to the level of the pouch. Borderline wall thickening of the ileoanal pouch without definite adjacent inflammatory change. PELVIS: Bladder: No focal wall thickening of the urinary bladder. Reproductive: Unremarkable as visualized. ABDOMEN and PELVIS: Intraperitoneal space: Unremarkable. No free air. No significant fluid collection. Bones/joints: Bilateral sacroiliac transfusion.No acute osseous abnormality. Soft tissues: Postoperative changes in the anterior abdominal wall. Increased focal right lower quadrant skin and subcutaneous tissue thickening without focal hematoma or temporal fluid collection. Vasculature: Atherosclerotic calcification affects the aorta and iliac arteries. No aortic aneurysm. Lymph nodes: No enlarged lymph nodes. IMPRESSION: 1. Increased focal right lower quadrant skin and subcutaneous tissue thickening without focal hematoma or temporal fluid collection. 2. Stable mild to moderate fluid filled dilatation of central abdominal and right lower quadrant small bowel loops to the level of the ileoanal pouch. Borderline wall thickening of the ileoanal pouch without definite adjacent inflammatory change. 3. 2.5 cm cystic lesion in the left kidney with thick enhancing septation which has increased in size compared 2 cm in 2017. Cystic renal neoplasm is not excluded. 10/21/17 22:[address] Candelaria, who is aware and agrees with plan. Accepts pt in to his service. [facility] observation for cellulitis, abdominal pain, and ulcerative colitis. - Lab Interpretations Lab Results: 10/21/17 20:02 10/21/17 20:02 Lab Results 10/21/17 20:02: WBC 6.0 D, RBC 4.47, Hgb 12.0 L, Hct 36.2 L, MCV 81.0 D, MCH 26.8, MCHC 33.1, RDW 18.5 H, Plt Count 234, MPV 9.1 10/21/17 20:02: Sodium 137, Potassium 4.1, Chloride 102, Carbon Dioxide 20 L, Anion Gap 19, BUN 11, Creatinine 1.0, Est GFR ( Amer) > 60, Est GFR (Non- Af Amer) > 60, Random Glucose 87, Calcium 9.2, Total Bilirubin 0.2, AST 24, ALT 20, Alkaline Phosphatase 63, Total Protein 7.1, Albumin 3.9, Globulin 3.2, Albumin/Globulin Ratio 1.2, Lipase 160 I have reviewed the lab results: Yes - RAD Interpretation Radiology Orders: 10/21/17 19:48 ABD & PELVIS IV CONTRAST ONLY [CT] Stat Behavioral Geneticist: Radiologist - Medication Orders Current Medication Orders: Discontinued Medications Sodium Chloride (Sodium Chloride 0.9%) 1,000 mls @ 999 mls/hr IV .Q1H1M STA Stop: 10/21/17 20:49 Last Admin: 10/21/17 20:09 Dose: 999 mls/hr eMAR Start Stop Document 10/21/17 20:09 IT (Rec: 10/21/17 20:10 IT [id number]) Intravenous Solution Start Date 10/21/17 Start Time 20:10 Morphine Sulfate (Morphine) 2 mg IVP STAT STA Stop: 10/21/17 19:50 Last Admin: 10/21/17 20:09 Dose: 2 mg MAR Pain Assessment Document 10/21/17 20:09 IT (Rec: 10/21/17 20:09 IT [id number]) Pain Reassessment Is this a pain reassessment? No Sleep Is patient sleeping during reassessment? No Presence of Pain Presence of Pain Yes IVP Administration Document 10/21/17 20:09 IT (Rec: 10/21/17 20:09 IT [id number]) Charges for Administration # of IVP Administrations 1 Ondansetron HCl (Zofran Inj) 4 mg IVP ONCE ONE Stop: 10/21/17 19:50 Last Admin: 10/21/17 20:09 Dose: 4 mg IVP Administration Document 10/21/17 20:09 IT (Rec: 10/21/17 20:09 IT [id number]) Charges for Administration # of IVP Administrations 1 Pantoprazole Sodium (Protonix Inj) 40 mg IVP ONCE STA Stop: 10/21/17 19:50 Last Admin: 10/21/17 20:09 Dose: 40 mg IVP Administration Document 10/21/17 20:09 IT (Rec: 10/21/17 20:09 IT [id number]) Charges for Administration # of IVP Administrations 1 - Scribe Statement The provider has reviewed the documentation as recorded by the Joyce Cr Provider Scribe Provider Scribe Attestation: All medical record entries made by the Maryibe were at my direction and personally dictated by me. I have reviewed the chart and agree that the record accurately reflects my personal performance of the history, physical exam, medical decision making, and the department course for this patient. I have also personally directed, reviewed, and agree with the discharge instructions and disposition. Disposition/Present on Arrival - Present on Arrival Any Indicators Present on Arrival: No History of DVT/PE: No History of Uncontrolled Diabetes: No Urinary Catheter: No History of Decub. Ulcer: No History Surgical Site Infection Following: None - Disposition Have Diagnosis and Disposition been Completed?: Yes Diagnosis: Abdominal pain, Cellulitis, Diarrhea Disposition: HOSPITALIZED Disposition Time: 22:21 Condition: STABLE Discharge Instructions (ExitCare): Cellulitis (ED) Forms: [employer] ([place])
[2017-10-21 20:08] LABS: MEAN CORPUSCULAR HEMOGLOBIN 26.8 pg (25.0-35.0); MEAN CORPUSCULAR HGB CONC 33.1 g/dl (31.0-37.0); MEAN PLATELET VOLUME 9.1 fl (7.0-11.0); RBC 4.47 10^6/uL (3.5-6.1); RED CELL DISTRIBUTION WIDTH 18.5 % (11.5-14.5)
[2017-10-21 20:16] LABS: ALB/GLOB RATIO 1.2 (1.1-1.8); ALBUMIN 3.9 g/dL (3.0-4.8); ALT/SGPT 20 U/L (7-56); AST/SGOT 24 U/L (17-59); BLOOD UREA NITROGEN 11 mg/dL (7-21); CALCIUM 9.2 mg/dL (8.4-10.5); GFR AFRICAN-AMERICAN > 60; GFR NON-AFRICAN AMERICAN > 60; LIPASE 160 U/L (23-300)
[2017-10-21] MEDS ORDERED: Iohexol 350 MG/100 ML VIAL ONE (20:36)
[2017-10-21] MEDS ORDERED: Piperacillin/Tazobact 3.375 gm 100 ML IV STA (22:25)
[2017-10-21] MEDS ORDERED: metroNIDAZOLE IV 500 mg/100 ml 500 MG/100 ML BAG IVPB STA (22:26)
--- NOTE | 2017-10-22 03:39 | CP.PCM.CON ---
History of Present Illness - History of Present Illness History of Present Illness: General surgery consult for Dr. Rodriguez Consulted for: abdominal pain and drainage from former ileostomy site 62M with PMH of Ulcerative colitis s/p total colectomy with ileostomy in 2006 with subsequent reversal at a different facility, and an ileostomy and small bowel resection for SBO in 2015, and subsequent ileostomy reversal with ileoanal pouch creation 7 months ago at an outside facility, pancreatitis, and duodenal ulcers who presented to the ED for 1 week of LLQ abdominal pain and diarrhea. Patient also complains of intermittent bleeding and drainage from his former ileostomy site in his RLQ. Patient states he has 4-5 bouts of diarrhea daily. Patient has had intermittent history of diarrhea and abdominal pain in the past, for which he takes immodium. Patient also complains of increased urinary frequency, but denies any hematuria or dysuria. States he is passing gas. Patient denies any melena, hematochezia, nausea, vomiting, fevers, chills. Patient denies any recent diet changes or sick contacts. He drinks 3-4 beers daily and smokes marijuana 5x daily. Patient states he hasn't had a colonoscopy since the last surgery, last EGD was 03/2017 which showed a duodenal ulcer for which he took an antacid until the prescription ran out PMH: HTN (resolved), Ulcerative colitis, GERD, duodenal ulcers, pancreatitis PSH: left inguinal hernia repair, total colectomy with ileostomy 2006, ileostomy reversal, subsequent small bowel resection and ileostomy for SBO 2015 , ileostomy reversal 03/2017 ALL: NKDA SocHx: smoker, ETOH, and marijuana Review of Systems - Review of Systems All systems: reviewed and no additional remarkable complaints except (as per HPI ) Past Patient History - Infectious Disease Hx of Infectious Diseases: None - Tetanus Immunizations Tetanus Immunization: Unknown - Past Medical History & Family History Past Medical History?: Yes Past Family History: Reviewed and not pertinent - Past Social History Smoking Status: Heavy Smoker > 10 Cigarettes Daily Alcohol: > 2 Drinks/Day Drugs: Cannabis (5x daily since teenager) - CARDIAC Hx Hypertension: Yes - PULMONARY Hx Respiratory Disorders: No - NEUROLOGICAL Hx Paralysis: No - HEENT Hx HEENT Problems: No - RENAL Hx Chronic Kidney Disease: No - ENDOCRINE/METABOLIC Hx Endocrine Disorders: No - HEMATOLOGICAL/ONCOLOGICAL Hx Blood Transfusions: Yes (2006) Hx Blood Transfusion Reaction: No - INTEGUMENTARY Hx Dermatological Problems: No - MUSCULOSKELETAL/RHEUMATOLOGICAL Hx Falls: Yes - GASTROINTESTINAL Hx Colostomy: Yes Hx Pancreatitis: Yes Other/Comment: ulcerative colitis - GENITOURINARY/GYNECOLOGICAL Hx Genitourinary Disorders: No - PSYCHIATRIC Hx Emotional Abuse: No Hx Physical Abuse: No Hx Substance Use: Yes (marijuana) - SURGICAL HISTORY Hx Herniorrhaphy: Yes (left inguinal) Other/Comment: total colectomy ileostomy 2006, subsequent ileostomy reversal. Small bowel resection and ileostomy creation 2015. Ileostomy reversal 03/2017 - ANESTHESIA Hx Anesthesia Reactions: No Hx Malignant Hyperthermia: No Meds Allergies/Adverse Reactions: Allergies Allergy/AdvReac Type Severity Reaction Status Date / Time No Known Allergies Allergy Verified 04/07/17 13:00 - Medications Medications: Current Medications Sodium Chloride (Sodium Chloride 0.9%) 1,000 mls @ 100 mls/hr IV .Q10H STA Stop: 10/22/17 08:22 Last Admin: 10/21/17 22:50 Dose: 100 mls/hr Ciprofloxacin (Cipro 400mg/200ml Dsw) 400 mg in 200 mls @ 133.3 mls/hr IVPB Q12 BRIGITTE PRN Reason: Protocol Stop: 10/22/17 23:31 Metronidazole (Flagyl) 500 mg in 100 mls @ 100 mls/hr IVPB Q8 BRIGITTE PRN Reason: Protocol Ondansetron HCl (Zofran Inj) 4 mg IVP Q6H PRN PRN Reason: Nausea/Vomiting Tramadol HCl (Ultram) 50 mg PO TID [facility] Physical Exam - Constitutional Appears: Well, Non-toxic, No Acute Distress - Head Exam Head Exam: ATRAUMATIC, NORMOCEPHALIC - Eye Exam Eye Exam: Normal appearance. absent: Conjunctival injection, Scleral icterus - ENT Exam ENT Exam: Mucous Membranes Moist, Normal Oropharynx - Respiratory Exam Respiratory Exam: NORMAL BREATHING PATTERN. absent: Accessory Muscle Use, Respiratory Distress - Cardiovascular Exam Cardiovascular Exam: RRR - GI/Abdominal Exam GI & Abdominal Exam: Soft, Tenderness (mild tenderness to palpation in the LLQ and LUQ). absent: Distended, Guarding, Rebound Additional comments: hypertrophic scar tissue with superficial ulcer in the RLQ at the former ileostomy site, serous drainage, no purulent fluid expressed, no induration or fluctuance - Rectal Exam Rectal Exam: Hemorrhoids (external non-thrombosed hemorrhoid), NORMAL INSPECTION. absent: Fecal Impaction Additional comments: normal sphinter tone, no masses or strictures, soft, loose light brown stool without gross blood - Extremities Exam Extremities exam: Negative for: calf tenderness, pedal edema, tenderness - Neurological Exam Neurological exam: Alert, Oriented x3 - Psychiatric Exam Psychiatric exam: Normal Affect, Normal Mood - Skin Skin Exam: Dry, Intact (except as noted in abdominal exam), Normal Color, Warm Results - Vital Signs Recent Vital Signs: Last Vital Signs Temp 98.2 F 10/21/17 23:49 Pulse 70 10/21/17 23:49 Resp 17 10/21/17 23:49 BP 114/66 10/21/17 23:49 Pulse Ox 98 10/21/17 23:49 - Labs Result Diagrams: 10/21/17 20:02 10/21/17 20:02 Assessment & Plan - Assessment and Plan (Free Text) Assessment: 62M with Ulcerative colitis and PSH of total colectomy with ileoanal pouch with diarrhea, abdominal pain, and ulceration of surgical scar CT [facility] read: increasd focal RLQ skin subcutaneous tissue thickening without focal fluid collection, stable mild fluid filled dilation of central abdominal and RLQ small bowl loops to level of ileoanal pouch, borderline wall thickening of the ileoanal pouch without adjacent inflammatory change Plan: -No surgical intervention indicated at this time -F/U UA and urine cultures, stool occult blood test -Antibiotics -NPO except meds -PO PRN pain medication -PRN nausea medication -IVF -AM CBC with diff and BMP, replete electrolytes as needed -local wound care of the scar ulceration Will discuss with Dr. Rodriguez in the AM. further recs per him Sonja Win, PGY2
[2017-10-22 04:55] VITALS: RESP 20
--- NOTE | 2017-10-22 05:30 | CP.PCM.HP ---
<Anel Dunbar - Last Filed: 10/22/17 15:40> History of Present Illness - History of Present Illness History of Present Illness: H&P for Raymon Rodriguez PGY3 This is a 62yo male with past medical history of ulcerative colitis s/p total colectomy w/ ileostomy & reversal x 2, GERD, pancreatitis, alcohol/tobacco abuse , GI bleed secondary to duodenal ulcer who came to ED for abdominal pain and diarrhea for several weeks. Patient reports 5+ watery non-bloody bowel movements per day that can wake him up at night. He states he has LLQ abdominal pain that is achy and intermittent. It does not radiate. He denies taking any medication and has not seen and GI doctor since his hospital stay in March. Patient reports he has had some drainage and bleeding at his old stoma site (RLQ ) for the past several days. Patient denies nausea/vomiting, recent travel, change in diet, sick contacts, nausea/vomiting, fever/chills, chest pain, shortness of breath, dysuria/hematuria. Patient did admit to some remote peripheral neuropathy on his feet. Past medical history: Ulcerative colitis, tobacco abuse, alcohol abuse, GI bleed from duodenal ulcer, GERD, pancreatitis Past surgical history: Total colectomy w/ ileostomy 2006 then ileostomy reversal , SBO then small bowel resection w/ ileostomy in 2015 and then another ileostomy reversal 03/2017 Home meds: None Allergies: NKDA Social history: Smokes 1ppd >40yrs, drinks "socially" 2-3 times per week 40oz beers because "they dont make 12oz containers anymore", smokes marijuana daily. Lives with roommate. Has daughter, but has not spoken to her in years. Present on Admission - Present on Admission Any Indicators Present on Admission: No Review of Systems - Review of Systems All systems: reviewed and no additional remarkable complaints except Review of Systems: 12 point ROS reviewed as per HPI and is otherwise negative Past Patient History - Infectious Disease Hx of Infectious Diseases: None - Tetanus Immunizations Tetanus Immunization: Unknown - Past Medical History & Family History Past Medical History?: Yes Past Family History: Reviewed and not pertinent - Past Social History Smoking Status: Heavy Smoker > 10 Cigarettes Daily - CARDIAC Hx Hypertension: Yes - PULMONARY Hx Respiratory Disorders: No - NEUROLOGICAL Hx Neurological Disorder: No - HEENT Hx HEENT Problems: No - RENAL Hx Chronic Kidney Disease: No - ENDOCRINE/METABOLIC Hx Endocrine Disorders: No - HEMATOLOGICAL/ONCOLOGICAL Hx Anemia: Yes - INTEGUMENTARY Hx Dermatological Problems: No - MUSCULOSKELETAL/RHEUMATOLOGICAL Hx Falls: Yes - GASTROINTESTINAL Hx Colostomy: Yes Hx Ileostomy: Yes Hx Pancreatitis: Yes Other/Comment: ulcerative colitis - GENITOURINARY/GYNECOLOGICAL Hx Genitourinary Disorders: No - PSYCHIATRIC Hx Emotional Abuse: No Hx Physical Abuse: No Hx Substance Use: Yes - SURGICAL HISTORY Hx Surgeries: Yes Other/Comment: total colectomy ileostomy 2006, subsequent ileostomy reversal. Small bowel resection and ileostomy creation 2015. Ileostomy reversal 03/2017 - ANESTHESIA Hx Anesthesia Reactions: No Hx Malignant Hyperthermia: No Meds Allergies/Adverse Reactions: Allergies Allergy/AdvReac Type Severity Reaction Status Date / Time No Known Allergies Allergy Verified 04/07/17 13:00 Physical Exam - Constitutional Appears: No Acute Distress - Head Exam Head Exam: ATRAUMATIC, NORMAL INSPECTION, NORMOCEPHALIC - Eye Exam Eye Exam: Normal appearance, PERRL Pupil Exam: NORMAL ACCOMODATION, PERRL - ENT Exam ENT Exam: Mucous Membranes Moist - Respiratory Exam Respiratory Exam: Clear to Auscultation Bilateral, NORMAL BREATHING PATTERN. absent: Rhonchi, Wheezes, Stridor - Cardiovascular Exam Cardiovascular Exam: REGULAR RHYTHM, +S1, +S2. absent: Gallop, Rubs, Systolic Murmur - GI/Abdominal Exam GI & Abdominal Exam: Normal Bowel Sounds, Soft, Tenderness (mild LLQ tenderness ). absent: Mass, Rebound, Rigid Additional comments: multiple LLQ and RLQ abdominal scars. RLQ has dressing in place on former stoma with some bloody/dark drainage. - Extremities Exam Extremities exam: Positive for: normal inspection. Negative for: pedal edema - Neurological Exam Neurological exam: Alert, CN II-XII Intact, Oriented x3 - Psychiatric Exam Psychiatric exam: Normal Affect, Normal Mood - Skin Skin Exam: Dry, Normal Color, Warm Results - Vital Signs Recent Vital Signs: Last Vital Signs Temp 98.6 F 10/22/17 04:26 Pulse 75 10/22/17 04:26 Resp 20 10/22/17 04:26 BP 132/86 10/22/17 04:26 Pulse Ox 98 10/21/17 23:49 - Labs Result Diagrams: 10/22/17 07:20 10/22/17 07:20 Labs: Laboratory Results - last 24 hr 10/22/17 03:30 Stool Occult Blood Negative Assessment & Plan - Assessment and Plan (Free Text) Assessment: This is a 62yo male with past medical history of ulcerative colitis s/p total colectomy w/ ileostomy & reversal x 2, GERD, pancreatitis, alcohol/tobacco abuse , GI bleed secondary to duodenal ulcer who was admitted for 1. Stoma drainage - can be secondary to pouchitis v. abscess 2. Diarrhea - secondary UC flare v. short bowel r/o colitis 3. Peripheral neuropathy - secondary to chronic EtOH abuse 4. Anemia - Normocytic - secondary to duodenal ulcer, chronic EtOH abuse 5. Hx of EtOH abuse 6. Hx of tobacco abuse 7. Hx of Duodenal ulcers and GERD Plan: Imaging and labs reviewed. CT done with PO or IV contrast. possible collection seen at stoma site. GI consulted and recommendations appreciated. ID on consult. Patient placed on Zosyn. Stool studies and wound culture pending. Will rule out C.diff. Patient evaluated by surgery. Continue local wound care. Pain is controlled and patient tolerating diet. Will give Multivitamin and Thiamine for history of EtOH abuse. Counseled patient on tobacco and alcohol cessation. GI and DVT prophylaxis. Case seen, discussed and reviewed with Dr. Candelaria. Raymon Dunbar PGY3 - Date & Time Date: 10/22/17 Time: 15:57 <Abelardo Candelaria S - Last Filed: 10/22/17 23:15> Results - Vital Signs Recent Vital Signs: Last Vital Signs Temp 98.6 F 10/22/17 14:00 Pulse 62 10/22/17 14:00 Resp 20 10/22/17 14:00 BP 103/72 10/22/17 14:00 Pulse Ox 97 10/22/17 14:00 - Labs Result Diagrams: 10/22/17 07:20 10/22/17 07:20 Assessment & Plan - Assessment and Plan (Free Text) Plan: Pt seen and examined. I have reviewed the note of the director medical safety and agree with it. I have discussed the assessment and plan with the resident. I have reviewed the patient's labs and medications. Spoke to GI- Dr Balderrama. He is on IV Abx. ID evaluation. No fever and no elevated WCC. His surgery was in ID. Surgery note appreciated.
[2017-10-22] MEDS: metroNIDAZOLE IV 500 mg/100 ml 500 MG/100 ML BAG IVPB SCH ×3 (05:41→21:14)
[2017-10-22 06:52] LABS: URINE BILIRUBIN NEGATIVE (NEGATIVE); URINE BLOOD NEGATIVE (NEGATIVE); URINE GLUCOSE (UA) NEGATIVE (NEGATIVE); URINE LEUKOCYTE ESTERASE NEGATIVE Leu/uL (NEGATIVE); URINE PROTEIN NEGATIVE mg/dL (<30 mg/dL); URINE UROBILINOGEN 0.2 E.U./dL (<1 E.U./dL)
[2017-10-22 07:03] LABS: URINE APPEARANCE CLEAR (CLEAR); URINE COLOR YELLOW (YELLOW)
[2017-10-22 07:45] LABS: BASO # 0.03 K/mm3 (0.0-2.0); BASO % 0.4 % (0.0-3.0); EOS # 0.3 (0.0-0.7); EOS % 3.3 % (1.5-5.0); GRAN # 6.12 (1.4-6.5); GRAN % 76.6 % (50.0-68.0); HEMOGLOBIN 12.4 g/dL (14.0-18.0); LYMPH # 1.1 (1.2-3.4); LYMPH % 13.6 % (22.0-35.0); MEAN CELL VOLUME 82.2 fl (80.0-105.0); MEAN CORPUSCULAR HEMOGLOBIN 26.6 pg (25.0-35.0); MEAN CORPUSCULAR HGB CONC 32.4 g/dl (31.0-37.0); MEAN PLATELET VOLUME 9.3 fl (7.0-11.0); MONO # 0.5 (0.1-0.6); MONO % 6.1 % (1.0-6.0); RBC 4.66 10^6/uL (3.5-6.1); RED CELL DISTRIBUTION WIDTH 18.8 % (11.5-14.5)
[2017-10-22 07:55] LABS: BLOOD UREA NITROGEN 13 mg/dL (7-21); CALCIUM 8.9 mg/dL (8.4-10.5); GFR AFRICAN-AMERICAN > 60; GFR NON-AFRICAN AMERICAN > 60
--- NOTE | 2017-10-22 09:46 | CT ---
Date of service: 10/21/2017 PROCEDURE: CT Abdomen and Pelvis with contrast HISTORY: abdominal pain COMPARISON: 04/02/2017 TECHNIQUE: Contrast dose: 94 cc of Omni 350 Radiation dose: Total exam DLP = 506 mGy-cm. This CT exam was performed using one or more of the following dose reduction techniques: Automated exposure control, adjustment of the mA and/or kV according to patient size, and/or use of iterative reconstruction technique. FINDINGS: LOWER THORAX: Unremarkable. LIVER: Unremarkable. No gross lesion or ductal dilatation. GALLBLADDER AND BILE DUCTS: Gallbladder removed PANCREAS: Unremarkable. No gross lesion or ductal dilatation. SPLEEN: Unremarkable. ADRENALS: Unremarkable. No mass. KIDNEYS AND URETERS: There is a complex cyst in the left kidney that has increased in size compared to the study dated 07/28/2016. There is a thick enhancing septation. A cystic neoplasm cannot be excluded and continued evaluation is recommended VASCULATURE: Unremarkable. No aortic aneurysm. BOWEL: There has been previous colectomy. There is an ileo anal pouch. Moderately dilated loops of small bowel are seen throughout the abdomen. There is mural thickening within the ileo anal pouch. No definite inflammatory change There is some mural thickening in the duodenum and proximal jejunum. This is nonspecific APPENDIX: Normal appendix. PERITONEUM: Unremarkable. No free fluid. No free air. LYMPH NODES: Unremarkable. No enlarged lymph nodes. BLADDER: Unremarkable. REPRODUCTIVE: Unremarkable. BONES: No acute fracture. OTHER FINDINGS: None. IMPRESSION: There has been previous colectomy. There is an ileo anal pouch. Moderately dilated loops of small bowel are seen throughout the abdomen. There is mural thickening within the ileo anal pouch. No definite inflammatory change There is some mural thickening in the duodenum and proximal jejunum. This is nonspecific There is a complex cyst in the left kidney that has increased in size compared to the study dated 07/28/2016. There is a thick enhancing septation. A cystic neoplasm cannot be excluded and continued evaluation is recommended
[2017-10-22] MEDS ORDERED: Ciprofloxacin 400mg/200ml D5W 400 MG/200 ML BAG IVPB SCH (10:00)
--- NOTE | 2017-10-22 10:02 | CP.PCM.CON ---
<NirajGiovanny - Last Filed: 10/22/17 11:22> History of Present Illness - History of Present Illness History of Present Illness: PGY-4 GI Fellow Consult Note Mr. Farfan is a 62 yo WM with h/o UC diagnosed 1982, not on any UC meds, s/p urgent colostomy creation in 2004 due to colonic perforation, subsequent completion colectomy with ileostomy for colonic strictures, later had ileostomy reversed with ileorectal anastamosis but had poor results therefore had ileostomy again in 02/2006. Later, he had completion proctectomy, ileoanal pouch creation and loop ileostomy in 12/2016, and Mar 2017 loop ileostomy reversal. He is presenting with complain of increasing diarrhea and abd pain. He states over the last week or so he has had increased number of bowel movement from about 2-3 semi formed to about 5 loose watery bowel movement. He also reports some mild, achey LLQ pain. States he normally takes some loperamide when he has loose stools but states it is not helping as much this time around. He also states that the old stoma site in his RLQ has has some mild drainage and bleeding. He denies any sick contacts, recent travel nor antibiotic use, N/V. 12 point ROS negative other than stated above MHx As above plus H/o duodenal ulcers (seen on EGD 03/2017, FC IIc and III s/p PPI) , pancreatitis, HTN, GERD. 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 SurgHx: see above Meds: Loperamide PRN FamHx: M w/UC, F w/Prostate CA SocHx: Drink few 40oz beers daily, + Tob use and MJ use All: NKDA Past Patient History - Infectious Disease Hx of Infectious Diseases: None - Tetanus Immunizations Tetanus Immunization: Unknown - Past Medical History & Family History Past Medical History?: Yes Past Family History: Reviewed and not pertinent - Past Social History Smoking Status: Heavy Smoker > 10 Cigarettes Daily - CARDIAC Hx Hypertension: Yes - PULMONARY Hx Respiratory Disorders: No - NEUROLOGICAL Hx Neurological Disorder: No - HEENT Hx HEENT Problems: No - RENAL Hx Chronic Kidney Disease: No - ENDOCRINE/METABOLIC Hx Endocrine Disorders: No - HEMATOLOGICAL/ONCOLOGICAL Hx Anemia: Yes - INTEGUMENTARY Hx Dermatological Problems: No - MUSCULOSKELETAL/RHEUMATOLOGICAL Hx Falls: Yes - GASTROINTESTINAL Hx Colostomy: Yes Hx Ileostomy: Yes Hx Pancreatitis: Yes Other/Comment: ulcerative colitis - GENITOURINARY/GYNECOLOGICAL Hx Genitourinary Disorders: No - PSYCHIATRIC Hx Emotional Abuse: No Hx Physical Abuse: No Hx Substance Use: Yes - SURGICAL HISTORY Hx Surgeries: Yes Other/Comment: total colectomy ileostomy 2006, subsequent ileostomy reversal. Small bowel resection and ileostomy creation 2015. Ileostomy reversal 03/2017 - ANESTHESIA Hx Anesthesia Reactions: No Hx Malignant Hyperthermia: No Meds Allergies/Adverse Reactions: Allergies Allergy/AdvReac Type Severity Reaction Status Date / Time No Known Allergies Allergy Verified 04/07/17 13:00 - Medications Medications: Current Medications Acetaminophen (Tylenol 325mg Tab) 650 mg PO Q6H PRN PRN Reason: Pain, moderate (4-7) Metronidazole (Flagyl) 500 mg in 100 mls @ 100 mls/hr IVPB Q8 [facility] PRN Reason: Protocol Last Admin: 10/22/17 05:41 Dose: 100 mls/hr Piperacillin Sod/Tazobactam Sod (Zosyn 3.375 In Ns 100ml) 100 mls @ 200 mls/hr IVPB Q6 [facility] PRN Reason: Protocol Stop: 10/29/17 12:01 Ondansetron HCl (Zofran Inj) 4 mg IVP Q6H PRN PRN Reason: Nausea/Vomiting Pantoprazole Sodium (Protonix Inj) 40 mg IVP DAILY [facility] Tramadol HCl (Ultram) 50 mg PO Q6H PRN PRN Reason: Pain, severe (8-10) Last Admin: 10/22/17 04:10 Dose: 50 mg Physical Exam - Constitutional Appears: Well, Non-toxic, No Acute Distress - Head Exam Head Exam: ATRAUMATIC, NORMAL INSPECTION - Eye Exam Eye Exam: EOMI, Normal appearance. absent: Conjunctival injection, Scleral icterus - ENT Exam ENT Exam: Mucous Membranes Moist, Normal External Ear Exam - Respiratory Exam Respiratory Exam: Clear to Auscultation Bilateral, NORMAL BREATHING PATTERN. absent: Accessory Muscle Use, Wheezes, Stridor - Cardiovascular Exam Cardiovascular Exam: REGULAR RHYTHM. absent: JVD - GI/Abdominal Exam GI & Abdominal Exam: Normal Bowel Sounds, Soft (RLQ stoma site with granulation tissue without significant erythema nor drainage (minimal sero-sanguinous fluid on bandage)). absent: Distended, Firm, Guarding, Tenderness - Rectal Exam Rectal Exam: Deferred - Neurological Exam Neurological exam: Alert, CN II-XII Intact, Oriented x3 - Psychiatric Exam Psychiatric exam: Normal Affect, Normal Mood - Skin Skin Exam: Intact (other that stated above and with multiple abd wall scars), Normal Color Results - Vital Signs Recent Vital Signs: Last Vital Signs Temp 98.4 F 10/22/17 06:00 Pulse 66 10/22/17 06:00 Resp 20 10/22/17 06:00 BP 115/68 10/22/17 06:00 Pulse Ox 98 10/22/17 06:00 - Labs Result Diagrams: 10/22/17 07:20 10/22/17 07:20 Assessment & Plan - Assessment and Plan (Free Text) Assessment: 62 yo WM with UC s/p total proctocolectomy with IPAA presenting with increasing diarrhea, abd pain and stoma drainage. # Diarrhea, Abd Pain: Suspect most likely due to pouchitis or infectious enteritis. Sign of wall thickening on Therefore, agree with with w/u infectious diarrhea as well as antibiotics for pouchitis. # Stoma discharge: Seems like normal granulation tissue on exam and CT w/o localized collection. Local supportive wound care. # UC s/p total proctocolectomy with IPAA: No IBD medications as outpatient, loperamide PRN. Plan: - Cont Cipro + Metronidazole for pouchitis, can likely narrow to either one for total of 14 days trt pending below workup - F/u Cdiff and Stool Cx - Local wound care to stoma site - DVT ppx warranted in IBD pt - County Supervisor on Tobacco cessation as can worsening acute pouchitis - Supportive care Pt seen and staffed with Dr. Balderrama <Wendy Balderrama V - Last Filed: 10/22/17 22:26> Meds - Medications Medications: Current Medications Acetaminophen (Tylenol 325mg Tab) 650 mg PO Q6H PRN PRN Reason: Pain, moderate (4-7) Last Admin: 10/22/17 10:05 Dose: 650 mg Bacitracin (Bacitracin) 1 ea TOP BID [facility] Last Admin: 10/22/17 17:14 Dose: 1 ea Metronidazole (Flagyl) 500 mg in 100 mls @ 100 mls/hr IVPB Q8 [facility] PRN Reason: Protocol Last Admin: 10/22/17 21:14 Dose: 100 mls/hr Piperacillin Sod/Tazobactam Sod (Zosyn 3.375 In Ns 100ml) 100 mls @ 200 mls/hr IVPB Q6 [facility] PRN Reason: Protocol Stop: 10/29/17 12:01 Last Admin: 10/22/17 17:13 Dose: 200 mls/hr Vancomycin HCl (Vancomycin 1gm) 1 gm in 250 mls @ 167 mls/hr IVPB Q12H [facility] PRN Reason: Protocol Last Admin: 10/22/17 16:02 Dose: 167 mls/hr Multivitamins (Thera Tab) 1 tab PO 0800 [facility] Ondansetron HCl (Zofran Inj) 4 mg IVP Q6H PRN PRN Reason: Nausea/Vomiting Pantoprazole Sodium (Protonix Inj) 40 mg IVP DAILY [facility] Last Admin: 10/22/17 10:05 Dose: 40 mg Thiamine HCl (Vitamin B1 Tab) 100 mg PO DAILY [facility] Tramadol HCl (Ultram) 50 mg PO Q6H PRN PRN Reason: Pain, severe (8-10) Last Admin: 10/22/17 17:34 Dose: 50 mg Results - Vital Signs Recent Vital Signs: Last Vital Signs Temp 98.6 F 10/22/17 14:00 Pulse 62 10/22/17 14:00 Resp 20 10/22/17 14:00 BP 103/72 10/22/17 14:00 Pulse Ox 97 10/22/17 14:00 - Labs Result Diagrams: 10/22/17 07:20 10/22/17 07:20 Attending/Attestation - Attestation I have personally seen and examined this patient.: Yes I have fully participated in the care of the patient.: Yes I have reviewed all pertinent clinical information: Yes Notes (Text): This is an addendum to GI consult report dictated by the GI Fellow.The patient was seen and examined earlier. Medical records, lab studies, imagings were reviewed. Last 24 hours events reviewed. 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 Favors mostly pouchitis Agree with Cipro and Flagyl antibiotics on liquid diet slowly advance diet 10/22/17 22:23
[2017-10-22] MEDS ORDERED: Bacitracin Ointment 30 GM TUBE TOP SCH (11:00)
[2017-10-22] MEDS: Piperacillin/Tazobact 3.375 gm 100 ML IVPB SCH ×2 (12:53→17:13)
[2017-10-22] MEDS ORDERED: Bacitracin 500 Units/gm Oint Foilpak UD TOP ONE (13:45)
--- NOTE | 2017-10-22 14:41 | CP.PCM.CON ---
History of Present Illness - History of Present Illness History of Present Illness: 62 year old male with PMH of ulcerative colitis S/P subtotal colectomy, S/P cholecystectomy, history of hernia repair, arthritis came in to [facility] [place] complaining of oozing and bleeding from his previous colostomy site which was reversed in 2016. This is also associated with pain around the area and loose bowel movement. According to the patient, there was note of some pus from the site this morning. He denies animal contacts, no soaking of his body in water, no fever or chills, no nausea or vomiting, no headache or dizziness, no chest pain , no SOB, no headache or dizziness, no dysuria. Infectious Diseases consult is requested to further evaluate and manage. Review of Systems - Review of Systems All systems: reviewed and no additional remarkable complaints except (as per HPI ) Past Patient History - Infectious Disease Hx of Infectious Diseases: None - Tetanus Immunizations Tetanus Immunization: Unknown - Past Medical History & Family History Past Medical History?: Yes Past Family History: Reviewed and not pertinent - Past Social History Smoking Status: Heavy Smoker > 10 Cigarettes Daily - CARDIAC Hx Hypertension: Yes - PULMONARY Hx Respiratory Disorders: No - NEUROLOGICAL Hx Neurological Disorder: No - HEENT Hx HEENT Problems: No - RENAL Hx Chronic Kidney Disease: No - ENDOCRINE/METABOLIC Hx Endocrine Disorders: No - HEMATOLOGICAL/ONCOLOGICAL Hx Anemia: Yes - INTEGUMENTARY Hx Dermatological Problems: No - MUSCULOSKELETAL/RHEUMATOLOGICAL Hx Falls: Yes - GASTROINTESTINAL Hx Colostomy: Yes Hx Ileostomy: Yes Hx Pancreatitis: Yes Other/Comment: ulcerative colitis - GENITOURINARY/GYNECOLOGICAL Hx Genitourinary Disorders: No - PSYCHIATRIC Hx Emotional Abuse: No Hx Physical Abuse: No Hx Substance Use: Yes - SURGICAL HISTORY Hx Surgeries: Yes Other/Comment: total colectomy ileostomy 2006, subsequent ileostomy reversal. Small bowel resection and ileostomy creation 2015. Ileostomy reversal 03/2017 - ANESTHESIA Hx Anesthesia Reactions: No Hx Malignant Hyperthermia: No Meds Allergies/Adverse Reactions: Allergies Allergy/AdvReac Type Severity Reaction Status Date / Time No Known Allergies Allergy Verified 04/07/17 13:00 - Medications Medications: Current Medications Acetaminophen (Tylenol 325mg Tab) 650 mg PO Q6H PRN PRN Reason: Pain, moderate (4-7) Ciprofloxacin (Cipro 400mg/200ml Dsw) 400 mg in 200 mls @ 133.3 mls/hr IVPB Q12 [facility] PRN Reason: Protocol Stop: 10/22/17 23:31 Metronidazole (Flagyl) 500 mg in 100 mls @ 100 mls/hr IVPB Q8 [facility] PRN Reason: Protocol Last Admin: 10/22/17 05:41 Dose: 100 mls/hr Ondansetron HCl (Zofran Inj) 4 mg IVP Q6H PRN PRN Reason: Nausea/Vomiting Pantoprazole Sodium (Protonix Inj) 40 mg IVP DAILY [facility] Tramadol HCl (Ultram) 50 mg PO Q6H PRN PRN Reason: Pain, severe (8-10) Last Admin: 10/22/17 04:10 Dose: 50 mg Physical Exam - Constitutional Appears: Non-toxic, Chronically Ill - Head Exam Head Exam: NORMAL INSPECTION - Respiratory Exam Respiratory Exam: Decreased Breath Sounds - Cardiovascular Exam Cardiovascular Exam: +S1, +S2 - GI/Abdominal Exam GI & Abdominal Exam: Soft, Tenderness Additional comments: around previous colostomy site with surrounding erythema and some bleeding noted Results - Vital Signs Recent Vital Signs: Last Vital Signs Temp 98.4 F 10/22/17 06:00 Pulse 66 10/22/17 06:00 Resp 20 10/22/17 06:00 BP 115/68 10/22/17 06:00 Pulse Ox 98 10/22/17 06:00 - Labs Result Diagrams: 10/22/17 07:20 10/22/17 07:20 Assessment & Plan - Assessment and Plan (Free Text) Plan: Assessment consider previous colostomy site skin and skin structure infection, R/O exacerbation of ulcerative colitis history of systemic Inflammatory Response Syndrome, due to acute pancreatitis ulcerative colitis S/P subtotal colectomy S/P reversal of colostomy S/P cholecystectomy history of hernia repair arthritis Plan started patient on Zosyn and will add Vancomycin pending wound cx, blood cx, stool work up follow up GI evaluation and recommendations will monitor clinically
[2017-10-22] MEDS: Vancomycin 1gm in NS 250ml 1 GM/250 ML BAG IVPB SCH (16:02)
[2017-10-22 16:29] LABS: FOLATE 11.8 ng/mL
[2017-10-22 17:05] VITALS: O2SAT 97
[2017-10-22] MEDS: Bacitracin 500 Units/gm Oint Foilpak UD TOP SCH (17:14)
[2017-10-23] MEDS: Piperacillin/Tazobact 3.375 gm 100 ML IVPB SCH ×2 (00:21→06:30)
[2017-10-23] MEDS: Vancomycin 1gm in NS 250ml 1 GM/250 ML BAG IVPB SCH (02:16)
[2017-10-23] MEDS: metroNIDAZOLE IV 500 mg/100 ml 500 MG/100 ML BAG IVPB SCH (05:23)
[2017-10-23 06:23] LABS: BASO # 0.03 K/mm3 (0.0-2.0); BASO % 0.6 % (0.0-3.0); EOS # 0.3 (0.0-0.7); EOS % 4.8 % (1.5-5.0); GRAN # 3.99 (1.4-6.5); GRAN % 73.8 % (50.0-68.0); HEMOGLOBIN 11.8 g/dL (14.0-18.0); LYMPH # 0.7 (1.2-3.4); LYMPH % 12.8 % (22.0-35.0); MEAN CELL VOLUME 82.3 fl (80.0-105.0); MEAN CORPUSCULAR HEMOGLOBIN 26.5 pg (25.0-35.0); MEAN CORPUSCULAR HGB CONC 32.2 g/dl (31.0-37.0); MEAN PLATELET VOLUME 9.5 fl (7.0-11.0); MONO # 0.4 (0.1-0.6); RBC 4.46 10^6/uL (3.5-6.1); RED CELL DISTRIBUTION WIDTH 18.3 % (11.5-14.5); WHITE BLOOD COUNT 5.4 10^3/ul (4.5-11.0)
[2017-10-23 06:48] LABS: BLOOD UREA NITROGEN 13 mg/dL (7-21); CALCIUM 8.6 mg/dL (8.4-10.5); GFR AFRICAN-AMERICAN > 60; GFR NON-AFRICAN AMERICAN > 60
--- NOTE | 2017-10-23 06:54 | CP.PCM.PN ---
Objective - Vital Signs/Intake and Output Vital Signs (last 24 hours): Temp Pulse Resp BP Pulse Ox 98.6 F 62 20 103/72 97 10/22/17 14:00 10/22/17 14:00 10/22/17 14:00 10/22/17 14:00 10/22/17 14:00 Intake and Output: 10/22/17 10/23/17 18:59 06:59 Intake Total 180 Output Total 400 Balance -220 - Medications Medications: Current Medications Acetaminophen (Tylenol 325mg Tab) 650 mg PO Q6H PRN PRN Reason: Pain, moderate (4-7) Last Admin: 10/22/17 10:05 Dose: 650 mg Bacitracin (Bacitracin) 1 ea TOP BID [facility] Last Admin: 10/22/17 17:14 Dose: 1 ea Metronidazole (Flagyl) 500 mg in 100 mls @ 100 mls/hr IVPB Q8 [facility] PRN Reason: Protocol Last Admin: 10/23/17 05:23 Dose: 100 mls/hr Piperacillin Sod/Tazobactam Sod (Zosyn 3.375 In Ns 100ml) 100 mls @ 200 mls/hr IVPB Q6 [facility] PRN Reason: Protocol Stop: 10/29/17 12:01 Last Admin: 10/23/17 06:30 Dose: 200 mls/hr Vancomycin HCl (Vancomycin 1gm) 1 gm in 250 mls @ 167 mls/hr IVPB Q12H [facility] PRN Reason: Protocol Last Admin: 10/23/17 02:16 Dose: 167 mls/hr Multivitamins (Thera Tab) 1 tab PO 0800 [facility] Ondansetron HCl (Zofran Inj) 4 mg IVP Q6H PRN PRN Reason: Nausea/Vomiting Pantoprazole Sodium (Protonix Inj) 40 mg IVP DAILY [facility] Last Admin: 10/22/17 10:05 Dose: 40 mg Thiamine HCl (Vitamin B1 Tab) 100 mg PO DAILY [facility] Tramadol HCl (Ultram) 50 mg PO Q6H PRN PRN Reason: Pain, severe (8-10) Last Admin: 10/23/17 05:35 Dose: 50 mg - Labs Labs: 10/23/17 05:30 10/23/17 05:30
[2017-10-23] MEDS ORDERED: Multivitamin Therapeutic Tab PO SCH (08:00)
[2017-10-23 08:48] VITALS: BP 124/80; PULSE 60; TEMP 98.4
--- NOTE | 2017-10-23 08:49 | CP.PCM.PN ---
Subjective - Date & Time of Evaluation Date of Evaluation: 10/23/17 Time of Evaluation: 06:00 - Subjective Subjective: Patient seen and evaluated bedside. No acute issues overnight. Patient is tolerating diet well. Denies any abdominal pain, fever, chills, nausea, vomiting , or any other complaints at this time. Objective - Vital Signs/Intake and Output Vital Signs (last 24 hours): Temp Pulse Resp BP Pulse Ox 98.4 F 60 20 124/80 97 10/23/17 06:00 10/23/17 06:00 10/23/17 06:00 10/23/17 06:00 10/22/17 14:00 Intake and Output: 10/23/17 10/23/17 06:59 18:59 Intake Total 180 Output Total 400 Balance -220 - Medications Medications: Current Medications Acetaminophen (Tylenol 325mg Tab) 650 mg PO Q6H PRN PRN Reason: Pain, moderate (4-7) Last Admin: 10/22/17 10:05 Dose: 650 mg Bacitracin (Bacitracin) 1 ea TOP BID [facility] Last Admin: 10/22/17 17:14 Dose: 1 ea Metronidazole (Flagyl) 500 mg in 100 mls @ 100 mls/hr IVPB Q8 [facility] PRN Reason: Protocol Last Admin: 10/23/17 05:23 Dose: 100 mls/hr Piperacillin Sod/Tazobactam Sod (Zosyn 3.375 In Ns 100ml) 100 mls @ 200 mls/hr IVPB Q6 [facility] PRN Reason: Protocol Stop: 10/29/17 12:01 Last Admin: 10/23/17 06:30 Dose: 200 mls/hr Vancomycin HCl (Vancomycin 1gm) 1 gm in 250 mls @ 167 mls/hr IVPB Q12H [facility] PRN Reason: Protocol Last Admin: 10/23/17 02:16 Dose: 167 mls/hr Multivitamins (Thera Tab) 1 tab PO 0800 [facility] Last Admin: 10/23/17 08:08 Dose: 1 tab Ondansetron HCl (Zofran Inj) 4 mg IVP Q6H PRN PRN Reason: Nausea/Vomiting Pantoprazole Sodium (Protonix Inj) 40 mg IVP DAILY [facility] Last Admin: 10/22/17 10:05 Dose: 40 mg Thiamine HCl (Vitamin B1 Tab) 100 mg PO DAILY [facility] Tramadol HCl (Ultram) 50 mg PO Q6H PRN PRN Reason: Pain, severe (8-10) Last Admin: 10/23/17 05:35 Dose: 50 mg - Labs Labs: 10/23/17 05:30 10/23/17 05:30 - Constitutional Appears: Well, Non-toxic, No Acute Distress - Head Exam Head Exam: ATRAUMATIC, NORMAL INSPECTION, NORMOCEPHALIC - Eye Exam Eye Exam: Normal appearance - ENT Exam ENT Exam: Mucous Membranes Moist - Respiratory Exam Respiratory Exam: Clear to Ausculation Bilateral, NORMAL BREATHING PATTERN - Cardiovascular Exam Cardiovascular Exam: REGULAR RHYTHM, +S1, +S2 - GI/Abdominal Exam GI & Abdominal Exam: Soft. absent: Distended, Guarding, Rigid, Tenderness Additional comments: scar tissue with superficial ulcer in the RLQ at the former ileostomy site, no drainage, no purulent fluid expressed, no induration or fluctuance - Neurological Exam Neurological Exam: Alert, Awake, Oriented x3 Assessment and Plan - Assessment and Plan (Free Text) Assessment: 62M with Ulcerative colitis and PSH of total colectomy with ileoanal pouch with diarrhea, abdominal pain, and ulceration of surgical scar. Plan: -No surgical intervention indicated at this time -apply bacitracin to wound -Antibiotics -local wound care -regular diet -further recs as per GI -patient discussed with Dr. Rodriguez -further recs per Dr. Michael Angelo PGY-2
--- NOTE | 2017-10-23 09:23 | CP.PCM.DIS ---
<Anel Dunbar - Last Filed: 10/23/17 10:07> Provider - Provider Date of Admission: 10/22/17 08:28 Attending physician: Abelardo Candelaria MD Consults: GI: Dr. Balderrama ID: Dr. Norman surgery: Dr. Rodriguez Time Spent in preparation of Discharge (in minutes): 35 Hospital Course - Lab Results Lab Results: Most Recent Lab Values WBC 5.4 10^3/ul (4.5-11.0) D 10/23/17 05:30 RBC 4.46 10^6/uL (3.5-6.1) 10/23/17 05:30 Hgb 11.8 g/dL (14.0-18.0) L 10/23/17 05:30 Hct 36.7 % (42.0-52.0) L 10/23/17 05:30 MCV 82.3 fl (80.0-105.0) 10/23/17 05:30 MCH 26.5 pg (25.0-35.0) 10/23/17 05:30 MCHC 32.2 g/dl (31.0-37.0) 10/23/17 05:30 RDW 18.3 % (11.5-14.5) H 10/23/17 05:30 Plt Count 197 10^3/uL (120.0-450.0) 10/23/17 05:30 MPV 9.5 fl (7.0-11.0) 10/23/17 05:30 Gran % 73.8 % (50.0-68.0) H 10/23/17 05:30 Lymph % (Auto) 12.8 % (22.0-35.0) L 10/23/17 05:30 [place] % (Auto) 8.0 % (1.0-6.0) H 10/23/17 05:30 Eos % (Auto) 4.8 % (1.5-5.0) 10/23/17 05:30 Baso % (Auto) 0.6 % (0.0-3.0) 10/23/17 05:30 Gran # 3.99 (1.4-6.5) 10/23/17 05:30 Lymph # (Auto) 0.7 (1.2-3.4) L 10/23/17 05:30 [place] # (Auto) 0.4 (0.1-0.6) 10/23/17 05:30 Eos # (Auto) 0.3 (0.0-0.7) 10/23/17 05:30 Baso # (Auto) 0.03 K/mm3 (0.0-2.0) 10/23/17 05:30 Sodium 139 mmol/L (132-148) 10/23/17 05:30 Potassium 4.1 mmol/L (3.6-5.0) 10/23/17 05:30 Chloride 108 mmol/L (98-107) H 10/23/17 05:30 Carbon Dioxide 23 mmol/L (21-33) 10/23/17 05:30 Anion Gap 12 (10-20) 10/23/17 05:30 BUN 13 mg/dL (7-21) 10/23/17 05:30 Creatinine 1.1 mg/dl (0.8-1.5) 10/23/17 05:30 Est GFR ( Amer) > 60 10/23/17 05:30 Est GFR (Non-Af Amer) > 60 10/23/17 05:30 Random Glucose 80 mg/dL (70-110) 10/23/17 05:30 Calcium 8.6 mg/dL (8.4-10.5) 10/23/17 05:30 Phosphorus 2.7 mg/dL (2.5-4.5) 10/23/17 05:30 Magnesium 2.0 mg/dL (1.7-2.2) 10/23/17 05:30 Total Bilirubin 0.2 mg/dL (0.2-1.3) 10/21/17 20:02 AST 24 U/L (17-59) 10/21/17 20:02 ALT 20 U/L (7-56) 10/21/17 20:02 Alkaline Phosphatase 63 U/L (38-126) 10/21/17 20:02 Total Protein 7.1 g/dL (5.8-8.3) 10/21/17 20:02 Albumin 3.9 g/dL (3.0-4.8) 10/21/17 20:02 Globulin 3.2 gm/dL 10/21/17 20:02 Albumin/Globulin Ratio 1.2 (1.1-1.8) 10/21/17 20:02 Lipase 160 U/L (23-300) 10/21/17 20:02 Vitamin B12 267 pg/mL (239-931) 10/22/17 07:20 Folate 11.8 ng/mL 10/22/17 07:20 Urine Color Yellow (YELLOW) 10/22/17 06:43 Urine Appearance Clear (CLEAR) 10/22/17 06:43 Urine pH 6.0 (4.7-8.0) 10/22/17 06:43 Ur Specific Bowers 1.010 (1.005-1.035) 10/22/17 06:43 Urine Protein Negative mg/dL (<30 mg/dL) 10/22/17 06:43 Urine Glucose (UA) Negative mg/dL (NEGATIVE) 10/22/17 06:43 Urine Ketones Negative mg/dL (NEGATIVE) 10/22/17 06:43 Urine Blood Negative (NEGATIVE) 10/22/17 06:43 Urine Nitrate Negative (NEGATIVE) 10/22/17 06:43 Urine Bilirubin Negative (NEGATIVE) 10/22/17 06:43 Urine Urobilinogen 0.2 E.U./dL (<1 E.U./dL) 10/22/17 06:43 Ur Leukocyte Esterase Negative Tadeo/uL (NEGATIVE) 10/22/17 06:43 Stool Occult Blood Negative (NEGATIVE) 10/22/17 03:30 - Hospital Course Hospital Course: This is a 62yo male with past medical history of ulcerative colitis s/p total colectomy w/ ileostomy & reversal x 2, GERD, pancreatitis, alcohol/tobacco abuse , GI bleed secondary to duodenal ulcer who was admitted for pouchitis and diarrhea. Imaging and blood work reviewed. Patient was afebrile without leukocytosis. Patient was evaluated by surgery who recommended local wound care with bacitracin twice per day and keep wound covered. Wound culture did not show any growth. Patient was also evaluated by GI and ID. His diarrhea has now resolved. Patient will be sent home with PO Flagyl and Cipro for 1 week. Patient will be placed on multivitamin and thiamine for history of alcohol use. Patient counseled on alcohol and tobacco cessation. He was also noted to have R kidney cyst on CT and we will continue to monitor. Patient will be discharged home. Patient verbalized and agreed with discharge plan. - Date & Time of H&P Date of H&P: 10/22/17 Time of H&P: 16:00 Discharge Exam - Head Exam Head Exam: ATRAUMATIC, NORMAL INSPECTION, NORMOCEPHALIC - Eye Exam Eye Exam: Normal appearance, PERRL Pupil Exam: NORMAL ACCOMODATION - ENT Exam ENT Exam: Mucous Membranes Moist - Respiratory Exam Respiratory Exam: Clear to PA & Lateral, NORMAL BREATHING PATTERN, UNREMARKABLE. absent: Decreased Breath Sounds, Wheezes - Cardiovascular Exam Cardiovascular Exam: REGULAR RHYTHM, +S1, +S2. absent: Gallop, Rubs, Systolic Murmur - GI/Abdominal Exam GI & Abdominal Exam: Normal Bowel Sounds, Unremarkable. absent: Mass, Rebound, Rigid, Soft, Tenderness Additional comments: wound dressing in place- clean and dry - Extremities Exam Extremities exam: normal inspection - Neurological Exam Neurological exam: Alert, CN II-XII Intact, Oriented x3 - Psychiatric Exam Psychiatric exam: Normal Affect, Normal Mood - Skin Skin Exam: Dry, Warm Discharge Plan - Discharge Medications Prescriptions: Bacitracin 1 ea TOP BID #1 tube Ciprofloxacin [Cipro] 500 mg PO BID #14 tab metroNIDAZOLE [Flagyl] 500 mg PO Q8H #21 tab Multivitamin Therapeutic Tab [Thera Tab] 1 tab PO 0800 #30 tab Thiamine HCl [B-1] 100 mg PO DAILY #30 tablet - Follow Up Plan Condition: STABLE Disposition: HOME/ ROUTINE Instructions: Preventing Falls in the Older Adult, Acute Abdomen (Belly Pain), Wound Care (DC), Why Vaccines Are Important for Everyone Additional Instructions: 1. Take medications as prescribed. 2. Please refrain from alcohol and tobacco use. Referrals: Wendy Balderrama MD [Medical Doctor] - Luciano Rodriguez MD [Staff Provider] - <Abelardo Candelaria - Last Filed: 10/23/17 23:40> Provider - Provider Date of Admission: 10/22/17 08:28 Attending physician: Abelardo Candelaria MD Hospital Course - Lab Results Lab Results: Most Recent Lab Values WBC 5.4 10^3/ul (4.5-11.0) D 10/23/17 05:30 RBC 4.46 10^6/uL (3.5-6.1) 10/23/17 05:30 Hgb 11.8 g/dL (14.0-18.0) L 10/23/17 05:30 Hct 36.7 % (42.0-52.0) L 10/23/17 05:30 MCV 82.3 fl (80.0-105.0) 10/23/17 05:30 MCH 26.5 pg (25.0-35.0) 10/23/17 05:30 MCHC 32.2 g/dl (31.0-37.0) 10/23/17 05:30 RDW 18.3 % (11.5-14.5) H 10/23/17 05:30 Plt Count 197 10^3/uL (120.0-450.0) 10/23/17 05:30 MPV 9.5 fl (7.0-11.0) 10/23/17 05:30 Gran % 73.8 % (50.0-68.0) H 10/23/17 05:30 Lymph % (Auto) 12.8 % (22.0-35.0) L 10/23/17 05:30 [place] % (Auto) 8.0 % (1.0-6.0) H 10/23/17 05:30 Eos % (Auto) 4.8 % (1.5-5.0) 10/23/17 05:30 Baso % (Auto) 0.6 % (0.0-3.0) 10/23/17 05:30 Gran # 3.99 (1.4-6.5) 10/23/17 05:30 Lymph # (Auto) 0.7 (1.2-3.4) L 10/23/17 05:30 [place] # (Auto) 0.4 (0.1-0.6) 10/23/17 05:30 Eos # (Auto) 0.3 (0.0-0.7) 10/23/17 05:30 Baso # (Auto) 0.03 K/mm3 (0.0-2.0) 10/23/17 05:30 Sodium 139 mmol/L (132-148) 10/23/17 05:30 Potassium 4.1 mmol/L (3.6-5.0) 10/23/17 05:30 Chloride 108 mmol/L (98-107) H 10/23/17 05:30 Carbon Dioxide 23 mmol/L (21-33) 10/23/17 05:30 Anion Gap 12 (10-20) 10/23/17 05:30 BUN 13 mg/dL (7-21) 10/23/17 05:30 Creatinine 1.1 mg/dl (0.8-1.5) 10/23/17 05:30 Est GFR ( Amer) > 60 10/23/17 05:30 Est GFR (Non-Af Amer) > 60 10/23/17 05:30 Random Glucose 80 mg/dL (70-110) 10/23/17 05:30 Calcium 8.6 mg/dL (8.4-10.5) 10/23/17 05:30 Phosphorus 2.7 mg/dL (2.5-4.5) 10/23/17 05:30 Magnesium 2.0 mg/dL (1.7-2.2) 10/23/17 05:30 Total Bilirubin 0.2 mg/dL (0.2-1.3) 10/21/17 20:02 AST 24 U/L (17-59) 10/21/17 20:02 ALT 20 U/L (7-56) 10/21/17 20:02 Alkaline Phosphatase 63 U/L (38-126) 10/21/17 20:02 Total Protein 7.1 g/dL (5.8-8.3) 10/21/17 20:02 Albumin 3.9 g/dL (3.0-4.8) 10/21/17 20:02 Globulin 3.2 gm/dL 10/21/17 20:02 Albumin/Globulin Ratio 1.2 (1.1-1.8) 10/21/17 20:02 Lipase 160 U/L (23-300) 10/21/17 20:02 Vitamin B12 267 pg/mL (239-931) 10/22/17 07:20 Folate 11.8 ng/mL 10/22/17 07:20 Urine Color Yellow (YELLOW) 10/22/17 06:43 Urine Appearance Clear (CLEAR) 10/22/17 06:43 Urine pH 6.0 (4.7-8.0) 10/22/17 06:43 Ur Specific Bow[place] 1.010 (1.005-1.035) 10/22/17 06:43 Urine Protein Negative mg/dL (<30 mg/dL) 10/22/17 06:43 Urine Glucose (UA) Negative mg/dL (NEGATIVE) 10/22/17 06:43 Urine Ketones Negative mg/dL (NEGATIVE) 10/22/17 06:43 Urine Blood Negative (NEGATIVE) 10/22/17 06:43 Urine Nitrate Negative (NEGATIVE) 10/22/17 06:43 Urine Bilirubin Negative (NEGATIVE) 10/22/17 06:43 Urine Urobilinogen 0.2 E.U./dL (<1 E.U./dL) 10/22/17 06:43 Ur Leukocyte Esterase Negative Tadeo/uL (NEGATIVE) 10/22/17 06:43 Stool Occult Blood Negative (NEGATIVE) 10/22/17 03:30 - Hospital Course Hospital Course: Pt seen and examined. I have reviewed the note of the medical registrar and agree with it. I have discussed the assessment and plan with the resident. I have reviewed the patient's labs and medications. Pt with chronic wound and on Abx. Spoke to GI and pt is cleared to go home. Pt seen by ID. Will be given Abx to go home.
[2017-10-23] MEDS: Bacitracin 500 Units/gm Oint Foilpak UD TOP SCH (09:35)
--- NOTE | 2017-10-23 12:51 | CP.PCM.PN ---
Subjective - Date & Time of Evaluation Date of Evaluation: 10/22/17 Time of Evaluation: 11:20 - Subjective Subjective: No fevers, not in distress, abdominal pain is better. Objective - Vital Signs/Intake and Output Vital Signs (last 24 hours): Temp Pulse Resp BP Pulse Ox 98.6 F 62 20 103/72 97 10/22/17 14:00 10/22/17 14:00 10/22/17 14:00 10/22/17 14:00 10/22/17 14:00 Intake and Output: 10/22/17 10/23/17 18:59 06:59 Intake Total 180 Balance 180 - Medications Medications: Current Medications Acetaminophen (Tylenol 325mg Tab) 650 mg PO Q6H PRN PRN Reason: Pain, moderate (4-7) Last Admin: 10/22/17 10:05 Dose: 650 mg Bacitracin (Bacitracin) 1 ea TOP BID [facility] Last Admin: 10/22/17 17:14 Dose: 1 ea Metronidazole (Flagyl) 500 mg in 100 mls @ 100 mls/hr IVPB Q8 [facility] PRN Reason: Protocol Last Admin: 10/22/17 21:14 Dose: 100 mls/hr Piperacillin Sod/Tazobactam Sod (Zosyn 3.375 In Ns 100ml) 100 mls @ 200 mls/hr IVPB Q6 [facility] PRN Reason: Protocol Stop: 10/29/17 12:01 Last Admin: 10/22/17 17:13 Dose: 200 mls/hr Vancomycin HCl (Vancomycin 1gm) 1 gm in 250 mls @ 167 mls/hr IVPB Q12H [facility] PRN Reason: Protocol Last Admin: 10/22/17 16:02 Dose: 167 mls/hr Multivitamins (Thera Tab) 1 tab PO 0800 [facility] Ondansetron HCl (Zofran Inj) 4 mg IVP Q6H PRN PRN Reason: Nausea/Vomiting Pantoprazole Sodium (Protonix Inj) 40 mg IVP DAILY [facility] Last Admin: 10/22/17 10:05 Dose: 40 mg Thiamine HCl (Vitamin B1 Tab) 100 mg PO DAILY [facility] Tramadol HCl (Ultram) 50 mg PO Q6H PRN PRN Reason: Pain, severe (8-10) Last Admin: 10/22/17 17:34 Dose: 50 mg - Constitutional Appears: Non-toxic, Chronically Ill - Head Exam Head Exam: NORMAL INSPECTION - Respiratory Exam Respiratory Exam: Decreased Breath Sounds - Cardiovascular Exam Cardiovascular Exam: +S1, +S2 - GI/Abdominal Exam GI & Abdominal Exam: Soft. absent: Tenderness Assessment and Plan - Assessment and Plan (Free Text) Plan: Assessment consider previous colostomy site skin and skin structure infection, mild R/O exacerbation of ulcerative colitis history of systemic Inflammatory Response Syndrome, due to acute pancreatitis ulcerative colitis S/P subtotal colectomy S/P reversal of colostomy S/P cholecystectomy history of hernia repair arthritis Plan on Zosyn and Vancomycin - cultures have been negative should apply Bactroban ointment to previous colostomy site as well
--- NOTE | 2017-10-23 14:37 | CP.PCM.PN ---
<Braydon Villanueva - Last Filed: 10/23/17 14:14> Subjective - Date & Time of Evaluation Date of Evaluation: 10/23/17 Time of Evaluation: 08:40 - Subjective Subjective: GI Progress Note for Dr. Conchis Villanueva, PGY-3 IM Patient seen and examined at bedside. No acute complaints, and no acute events reported overnight. Reports feeling better overall, ready to go home. No abd pain, nausea, emesis, or melena. Objective - Vital Signs/Intake and Output Vital Signs (last 24 hours): Temp Pulse Resp BP Pulse Ox 98.4 F 60 20 124/80 97 10/23/17 06:00 10/23/17 06:00 10/23/17 06:00 10/23/17 06:00 10/22/17 14:00 Intake and Output: 10/23/17 10/23/17 06:59 18:59 Intake Total 180 Output Total 400 Balance -220 - Labs Labs: 10/23/17 05:30 10/23/17 05:30 - Constitutional Appears: Non-toxic, No Acute Distress - Head Exam Head Exam: ATRAUMATIC, NORMAL INSPECTION, NORMOCEPHALIC - Eye Exam Eye Exam: EOMI, Normal appearance. absent: Conjunctival injection, Scleral icterus Pupil Exam: absent: Fixed, Irregular - ENT Exam ENT Exam: Mucous Membranes Moist - Neck Exam Neck Exam: Normal Inspection - Respiratory Exam Respiratory Exam: Clear to Ausculation Bilateral, NORMAL BREATHING PATTERN. absent: Accessory Muscle Use, Chest Wall Tenderness, Decreased Breath Sounds, Rales, Rhonchi, Wheezes, Stridor - Cardiovascular Exam Cardiovascular Exam: REGULAR RHYTHM, RRR, +S1, +S2. absent: Bradycardia, Tachycardia, Irregular Rhythm, JVD, +S4 - GI/Abdominal Exam GI & Abdominal Exam: Soft, Normal Bowel Sounds. absent: Distended, Firm, Rigid , Tenderness, Diminished Bowel Sounds, Hyperactive Bowel Sounds, Hypoactive Bowel Sounds Additional comments: bandaging over RLQ stoma site, no strikethrough discharge or bleeding appreciated - Extremities Exam Extremities Exam: Normal Capillary Refill, Normal Inspection. absent: Calf Tenderness, Pedal Edema, Tenderness - Back Exam Back Exam: absent: CVA tenderness (L), CVA tenderness (R) - Neurological Exam Neurological Exam: Alert, Awake, Oriented x3 - Psychiatric Exam Psychiatric exam: Normal Affect, Normal Mood - Skin Skin Exam: Dry, Intact, Normal Color, Warm Additional comments: scarring over lower abdomen at sites of prior surgery, well-healed Assessment and Plan - Assessment and Plan (Free Text) Assessment: 62 yo WM with UC s/p total proctocolectomy with IPAA presenting with increasing diarrhea, abd pain and stoma drainage. Known to be non-compliant with medications in the past. Plan: Diarrhea, Abd Pain: pouchitis vs infectious enteritis Stoma discharge UC s/p total proctocolectomy with IPAA Seems like normal granulation tissue on exam and CT w/o localized collection. Local supportive wound care. Pt known to be non-compliant on UC regimen, but is willing to take Cipro/Flagyl as had been on it previously and felt like it helped him -Sign of wall thickening on CT, infectious diarrhea w/u and antibiotics for pouchitis appropriate -Loperamide PRN -Discussed with primary team as pending discharge; Cipro 500mg BID and Flagyl 500mg TID PO x1 week each -C diff pending, stool cx pending -Local wound care to stoma site -DVT ppx warranted in IBD pt -Counseled again on Tobacco cessation as can worsening acute pouchitis, pt reiterates he plans to stop smoking -Supportive care Patient seen and reviewed with attending, Dr. Balderrama <Wendy Balderrama V - Last Filed: 10/24/17 00:27> Objective - Vital Signs/Intake and Output Vital Signs (last 24 hours): Temp Pulse Resp BP Pulse Ox 98.4 F 60 20 124/80 97 10/23/17 06:00 10/23/17 06:00 10/23/17 06:00 10/23/17 06:00 10/22/17 14:00 - Labs Labs: 10/23/17 05:30 10/23/17 05:30 Attending/Attestation - Attestation I have personally seen and examined this patient.: Yes I have fully participated in the care of the patient.: Yes I have reviewed all pertinent clinical information, including history, physical exam and plan: Yes Notes (Text): This is an addendum to GI progress report dictated by the Wooden Barrel Mechanic.The patient was seen and examined earlier. Medical records, lab studies, imagings were reviewed. Last 24 hours events reviewed. Agreed with the above treatment plan as outlined in Wooden Barrel Mechanic 's notes the with the addition of the following 10/24/17 00:27
== END 2017-10-23 11:52 | disposition home or self-care (01) | DRG 394 ==
LOC: ED 19:28 → ERH 22:21 → 5RSO 23:48 → OBSVTOIN 10-22 08:28
PROVIDERS: ADMIT Internal Medicine Nephrology; ATTEND Internal Medicine Nephrology
DX: K91.850 Pouchitis (principal); K51.90 Ulcerative colitis, unspecified, without complications; K21.9 Gastro-esophageal reflux disease without esophagitis; Z90.49 Acquired absence of other specified parts of digestive tract; N28.1 Cyst of kidney, acquired; M19.90 Unspecified osteoarthritis, unspecified site; D64.9 Anemia, unspecified; F10.10 Alcohol abuse, uncomplicated; F12.90 Cannabis use, unspecified, uncomplicated; F17.210 Nicotine dependence, cigarettes, uncomplicated; G62.9 Polyneuropathy, unspecified; I10 Essential (primary) hypertension; K26.9 Duodenal ulcer, unspecified as acute or chronic, without hemorrhage or perforation; Z91.14 Patient's other noncompliance with medication regimen; Z87.19 Personal history of other diseases of the digestive system

== ENCOUNTER 2018-08-02 14:14 | Observation (INO) | payer MEDICARE ==
[2018-08-02] MEDS ORDERED: Sodium Chloride 0.9% 1,000 ML IV STA (15:38)
--- NOTE | 2018-08-02 15:42 | ED PDOC ---
Arrival/HPI - General Chief Complaint: GI Problem Time Seen by Provider: 08/02/18 15:30 Historian: Patient - History of Present Illness Narrative History of Present Illness (Text): 08/02/18 15:45 63 year old male, with a past medical history of ulcerative colitis, s/p coelctomy and abdominal hernia repair, and ileostomy with reversal (March 2017), who presents to the emergency department complaining of left sided abdominal cramping. Patient reports symptoms began after an abdominal surgery performed by Dr. Rodriguez. Patient endorses nausea and "watery" diarrhea. Denies any fevers, chills, headaches, shortness of breath, dysuria, chest pain, back pain, or any other somatic complaints. PCP: Dr. Velez 08/02/18 18:41 Symptom Onset: Gradual Symptom Course: Unchanged Activities at Onset: Light Context: Home Past Medical History - Provider Review Nursing Documentation Reviewed: Yes - Infectious Disease Hx of Infectious Diseases: None - Tetanus Immunization Tetanus Immunization: Unknown - Cardiac Hx Hypertension: Yes - Pulmonary Hx Respiratory Disorders: No - Neurological Hx Neurological Disorder: No - HEENT Hx HEENT Disorder: No - Renal Hx Renal Disorder: No - Endocrine/Metabolic Hx Endocrine Disorders: No - Hematological/Oncological Hx Anemia: Yes - Integumentary Hx Dermatological Disorder: No - Musculoskeletal/Rheumatological Hx Falls: Yes - Gastrointestinal Hx Colostomy: Yes Hx Ileostomy: Yes Hx Pancreatitis: Yes Other/Comment: ulcerative colitis - Genitourinary/Gynecological Hx Genitourinary Disorders: No - Psychiatric Hx Emotional Abuse: No Hx Physical Abuse: No Hx Substance Use: Yes - Surgical History Other/Comment: total colectomy ileostomy 2006, subsequent ileostomy reversal. Small bowel resection and ileostomy creation 2015. Ileostomy reversal 03/2017 - Anesthesia Hx Anesthesia: Yes Hx Anesthesia Reactions: No Hx Malignant Hyperthermia: No - Suicidal Assessment Feels Threatened In Home Enviroment: No Family/Social History - Physician Review Nursing Documentation Reviewed: Yes Family/Social History: Unknown Family HX Smoking Status: Heavy Smoker > 10 Cigarettes Daily Hx Alcohol Use: Yes Hx Substance Use: Yes Substance used: MArijuana Hx Substance Use Treatment: No Allergies/Home Meds Allergies/Adverse Reactions: Allergies No Known Allergies Allergy (Verified 04/07/17 13:00) Home Medications: Home Meds Medication Instructions Recorded Confirmed Loperamide HCl [Imodium A-D] 2 mg PO PRN PRN 04/07/17 04/07/17 Review of Systems - Physician Review All systems were reviewed & negative as marked: Yes - Review of Systems Constitutional: absent: Fevers Respiratory: absent: SOB, Cough Cardiovascular: absent: Chest Pain Gastrointestinal: Abdominal Pain, Nausea Musculoskeletal: absent: Back Pain, Neck Pain Neurological: absent: Headache, Dizziness Physical Exam Vital Signs Reviewed: Yes Vital Signs Temp Pulse Resp BP Pulse Ox 08/02/18 14:14 98.6 F 115 H 18 134/91 H 100 Temperature: Afebrile Blood Pressure: Normal Pulse: Tachycardic Respiratory Rate: Normal Appearance: Positive for: Well-Appearing, Non-Toxic, Comfortable Pain Distress: None Mental Status: Positive for: Alert and Oriented X 3 - Systems Exam Head: Present: Atraumatic, Normocephalic Pupils: Present: PERRL Extroacular Muscles: Present: EOMI Conjunctiva: Present: Normal Mouth: Present: Moist Mucous Membranes Neck: Present: Normal Range of Motion Respiratory/Chest: Present: Clear to Auscultation, Good Air Exchange, Wheezes (scattered wheezing). No: Respiratory Distress, Accessory Muscle Use Cardiovascular: Present: Regular Rate and Rhythm, Normal S1, S2. No: Murmurs Abdomen: Present: Other (abdomen soft). No: Tenderness, Distention, Peritoneal Signs Back: Present: Normal Inspection Upper Extremity: Present: Normal Inspection. No: Cyanosis, Edema Lower Extremity: Present: Normal Inspection. No: Edema Neurological: Present: GCS=15, Speech Normal Skin: Present: Warm, Dry, Normal Color. No: Rashes Psychiatric: Present: Alert, Oriented x 3, Normal Insight, Normal Concentration Medical Decision Making ED Course and Treatment: 08/02/18 15:39 Impression: 63 year old male presents to the emergency department complaining of abdominal cramping. h/o o fuc. pt has colon resection Differential Diagnosis included but are not limited to: Plan: -- Labs -- Chest X-ray -- Urinalysis -- Iv fluids -- Reassess and disposition Prior Visits: Notes and results from previous visits were reviewed. Progress Notes: 08/02/18 18:41 labs neg seen by dr coto in er. requests overnight obs. acceptd dr hill requests michael consult. - RAD Interpretation Radiology Orders: 08/02/18 15:38 CHEST PORTABLE [RAD] Stat - EKG Interpretation EKG Interpretation (Text): 08/02/18 15:43 EKG reviewed, shows: NSR at 83, no ST elevation. Interpreted by ED Physician: Yes Type: 12 lead EKG - Medication Orders Current Medication Orders: Sodium Chloride (Sodium Chloride 0.9%) 1,000 mls @ 999 mls/hr IV .Q1H1M STA Stop: 08/02/18 16:38 - Scribe Statement The provider has reviewed the documentation as recorded by the Maryibnithya Blankenship All medical record entries made by the Maryibnithya were at my direction and personally dictated by me. I have reviewed the chart and agree that the record accurately reflects my personal performance of the history, physical exam, medical decision making, and the department course for this patient. I have also personally directed, reviewed, and agree with the discharge instructions and disposition. Disposition/Present on Arrival - Present on Arrival Any Indicators Present on Arrival: No History of DVT/PE: No History of Uncontrolled Diabetes: No Urinary Catheter: No History of Decub. Ulcer: No History Surgical Site Infection Following: None - Disposition Have Diagnosis and Disposition been Completed?: Yes Diagnosis: Abdominal pain Disposition: HOSPITALIZED Disposition Time: 14:00 Condition: STABLE Forms: appbackr (Albanian)
--- NOTE | 2018-08-02 16:49 | RAD ---
Date of service: 08/02/2018 HISTORY: abd pain COMPARISON: Comparison is made with 04/07/2017 TECHNIQUE: 1 view obtained. FINDINGS: LUNGS: Linear opacities at the left lung base are again noted likely represent scar tissue. PLEURA: No significant pleural effusion identified, no pneumothorax apparent. CARDIOVASCULAR: No aortic atherosclerotic calcification present. Normal cardiac size. No pulmonary vascular congestion. OSSEOUS STRUCTURES: No significant abnormalities. VISUALIZED UPPER ABDOMEN: Normal. OTHER FINDINGS: None. IMPRESSION: No active disease. No significant interval change
[2018-08-02 17:33] LABS: ALB/GLOB RATIO 1.2 (1.1-1.8); ALBUMIN 4.5 g/dL (3.0-4.8); ALT/SGPT 17 U/L (7-56); AST/SGOT 30 U/L (17-59); BLOOD UREA NITROGEN 13 mg/dL (7-21); CALCIUM 10.4 mg/dL (8.4-10.5); GFR NON-AFRICAN AMERICAN > 60; LIPASE 79 U/L (23-300)
[2018-08-02 17:40] LABS: BASO # 0.02 K/mm3 (0.0-2.0); BASO % 0.2 % (0.0-3.0); EOS # 0.1 (0.0-0.7); EOS % 1.5 % (1.5-5.0); HEMOGLOBIN 16.6 g/dL (14.0-18.0); LYMPH # 1.3 (1.2-3.4); LYMPH % 14.5 % (22.0-35.0); MEAN PLATELET VOLUME 9.5 fl (7.0-11.0); MONO # 0.5 (0.1-0.6); MONO % 5.9 % (1.0-6.0); RBC 5.36 10^6/uL (3.5-6.1); RED CELL DISTRIBUTION WIDTH 14.9 % (11.5-14.5); WHITE BLOOD COUNT 8.8 10^3/uL (4.5-11.0)
[2018-08-02] MEDS ORDERED: Iohexol 300 100 ML IJ ONE (17:48)
--- NOTE | 2018-08-02 18:30 | CT ---
Date of service: 08/02/2018 PROCEDURE: CT Abdomen and Pelvis with contrast HISTORY: Abdominal pain/diarrhea/h/o of colon resection Relevant surgical history: Prior colectomy with ileoanal pouch. COMPARISON: 04/02/2017 and 10/21/[address] scans of the abdomen and pelvis. TECHNIQUE: Intravenous contrast dose: 100 cc Omnipaque 300. Radiation dose: Total exam DLP = <inf_radiation_dlp> mGy-cm. This CT exam was performed using one or more of the following dose reduction techniques: Automated exposure control, adjustment of the mA and/or kV according to patient size, and/or use of iterative reconstruction technique. FINDINGS: LOWER THORAX: Unremarkable. LIVER: Unremarkable. No gross lesion or ductal dilatation. GALLBLADDER AND BILE DUCTS: Status post cholecystectomy. No abnormality is seen in the gallbladder fossa. PANCREAS: Unremarkable. No gross lesion or ductal dilatation. SPLEEN: Unremarkable. ADRENALS: Unremarkable. No mass. KIDNEYS AND URETERS: Unremarkable. No hydronephrosis. No solid mass. Incidental finding(s): Bilateral renal cysts the largest projects off the posterior aspect of the left kidney and is exophytic. VASCULATURE: Unremarkable. No aortic aneurysm. No atherosclerotic calcification or mural plaque present. BOWEL: Status post total colectomy with ileoanal pouch. Chronic dilatation small bowel proximal to the anastomotic suture line. The degree of dilatation is more substantial on the current study. Fluid identified throughout small bowel as well as annual rectal region consistent with diarrheal state. No evidence of ileitis. APPENDIX: Normal appendix. PERITONEUM: Unremarkable. No free fluid. No free air. LYMPH NODES: Unremarkable. No enlarged lymph nodes. BLADDER: Unremarkable. REPRODUCTIVE: Unremarkable. BONES: No acute fracture. OTHER FINDINGS: None. IMPRESSION: Redemonstration of dilatation of the entire small bowel. The degree of dilatation is more pronounced on the current study. In addition the fluid volume in the small bowel at and beyond the anastomotic site has increased. No visible mechanical obstruction. No visible free air. Additional benign and/or incidental findings described above.
[2018-08-02 18:47] LABS: INR 0.99; PARTIAL THROMBOPLASTIN TIME 32.8 Seconds (26.9-38.3)
[2018-08-02 19:27] LABS: PH,URINE 6.5 (4.7-8.0); URINE BILIRUBIN SMALL (NEGATIVE); URINE BLOOD NEGATIVE (NEGATIVE); URINE GLUCOSE (UA) NEGATIVE (NEGATIVE); URINE LEUKOCYTE ESTERASE NEGATIVE Leu/uL (NEGATIVE); URINE PROTEIN TRACE mg/dL (<30 mg/dL); URINE UROBILINOGEN 0.2 E.U./dL (<1 E.U./dL)
[2018-08-02 19:45] LABS: URINE APPEARANCE CLEAR (CLEAR); URINE COLOR YELLOW (YELLOW)
[2018-08-02 20:01] LABS: URINE CALCIUM OXALATE CRYSTALS OCC /hpf; URINE EPITHELIAL CELLS 0 - 2 /hpf (0-5); URINE RBC 0 - 2 /hpf (0-2); URINE WBC 0 - 2 /hpf (0-6)
--- NOTE | 2018-08-02 21:16 | CP.PCM.CON ---
History of Present Illness - History of Present Illness History of Present Illness: GENERAL SURGERY CONSULT NOTE FOR DR. WEAVER 62M with PMHx of Ulcerative colitis s/p total colectomy with ileostomy in 2006 with subsequent reversal at a different facility, and an ileostomy and small bowel resection for SBO in 2015, and subsequent ileostomy reversal with ileoanal pouch creation in 2016 at [facility], who presented to the ED for cramping abdominal pain and watery diarrhea. The symptoms began about 2 days ago. Pt has had similar symptoms in the past. He states that normally he has about 3-4 BMs a day but now he is having 6 BMs a day and they are very watery. Denies vomiting or nausea. Pt states that he is hungry. Patient also complains of drainage from previous ileostomy site. Pt stated that it had originally healed after the surgery in 2016 but then for the past year or so has been draining intermittently. Pt does not remember when his last colonoscopy was. PMH: Ulcerative colitis, GERD, duodenal ulcers, pancreatitis PSH: left inguinal hernia repair, total colectomy with ileostomy 2006, ileostomy reversal, subsequent small bowel resection and ileostomy for SBO 2015, ileostomy reversal with creation of ileal anal pouch 03/2017 Allerg: NKDA SocHx: smoker 1 PPD, social ETOH, and occasional marijuana Review of Systems - Review of Systems All systems: reviewed and no additional remarkable complaints except (as per HPI) Past Patient History - Infectious Disease Hx of Infectious Diseases: None - Tetanus Immunizations Tetanus Immunization: Unknown - Past Medical History & Family History Past Medical History?: Yes - Past Social History Smoking Status: Heavy Smoker > 10 Cigarettes Daily - CARDIAC Hx Hypertension: Yes - PULMONARY Hx Respiratory Disorders: No - NEUROLOGICAL Hx Neurological Disorder: No - HEENT Hx HEENT Problems: No - RENAL Hx Chronic Kidney Disease: No - ENDOCRINE/METABOLIC Hx Endocrine Disorders: No - HEMATOLOGICAL/ONCOLOGICAL Hx Anemia: Yes - INTEGUMENTARY Hx Dermatological Problems: No - MUSCULOSKELETAL/RHEUMATOLOGICAL Hx Falls: Yes - GASTROINTESTINAL Hx Colostomy: Yes Hx Ileostomy: Yes Hx Pancreatitis: Yes Other/Comment: ulcerative colitis - GENITOURINARY/GYNECOLOGICAL Hx Genitourinary Disorders: No - PSYCHIATRIC Hx Emotional Abuse: No Hx Physical Abuse: No Hx Substance Use: Yes - SURGICAL HISTORY Other/Comment: total colectomy ileostomy 2006, subsequent ileostomy reversal. Small bowel resection and ileostomy creation 2015. Ileostomy reversal 03/2017 - ANESTHESIA Hx Anesthesia: Yes Hx Anesthesia Reactions: No Hx Malignant Hyperthermia: No Meds Allergies/Adverse Reactions: Allergies Allergy/AdvReac Type Severity Reaction Status Date / Time No Known Allergies Allergy Verified 04/07/17 13:00 Physical Exam - Constitutional Appears: Non-toxic, No Acute Distress - Head Exam Head Exam: ATRAUMATIC, NORMAL INSPECTION - Eye Exam Eye Exam: EOMI, Normal appearance - Respiratory Exam Respiratory Exam: NORMAL BREATHING PATTERN. absent: Respiratory Distress - Cardiovascular Exam Cardiovascular Exam: +S1, +S2 - GI/Abdominal Exam GI & Abdominal Exam: Soft, Tenderness (mild tenderness around previous ileostomy site). absent: Distended, Firm, Guarding, Rebound, Rigid Additional comments: Well healed left previous ileostomy site Right previous ileostomy site with dried scab, no drainage currently - Neurological Exam Neurological exam: Alert, CN II-XII Intact, Oriented x3 - Psychiatric Exam Psychiatric exam: Normal Affect, Normal Mood - Skin Skin Exam: Dry, Normal Color, Warm Results - Vital Signs Recent Vital Signs: Last Vital Signs Temp 99 F 08/02/18 21:03 Pulse 68 08/02/18 21:03 Resp 17 08/02/18 21:03 BP 141/70 08/02/18 21:03 Pulse Ox 99 08/02/18 21:03 - Labs Result Diagrams: 08/02/18 17:16 08/02/18 17:16 Labs: Laboratory Results - last 24 hr 08/02/18 08/02/18 08/02/18 17:16 17:16 17:16 WBC 8.8 RBC 5.36 Hgb 16.6 D Hct 48.8 MCV 91.0 D MCH 31.0 MCHC 34.0 RDW 14.9 H Plt Count 251 MPV 9.5 Neut % (Auto) 77.9 H Lymph % (Auto) 14.5 L [place] % (Auto) 5.9 Eos % (Auto) 1.5 Baso % (Auto) 0.2 Lymph # (Auto) 1.3 [place] # (Auto) 0.5 Eos # (Auto) 0.1 Baso # (Auto) 0.02 Absolute Neuts (auto) 6.81 H PT 11.0 INR 0.99 APTT 32.8 Sodium 137 Potassium 4.1 Chloride 99 Carbon Dioxide 29 Anion Gap 14 BUN 13 Creatinine 1.2 Est GFR ( Amer) > 60 Est GFR (Non-Af Amer) > 60 Random Glucose 86 Calcium 10.4 Magnesium 2.1 Total Bilirubin 0.7 AST 30 ALT 17 Alkaline Phosphatase 113 Total Protein 8.4 H Albumin 4.5 Globulin 3.9 Albumin/Globulin Ratio 1.2 Lipase 79 Urine Color Urine Appearance Urine pH Ur Specific [place] Urine Protein Urine Glucose (UA) Urine Ketones Urine Blood Urine Nitrate Urine Bilirubin Urine Urobilinogen Ur Leukocyte Esterase Urine RBC Urine WBC Ur Epithelial Cells Calcium Oxalate Crystal 08/02/18 19:10 WBC RBC Hgb Hct MCV MCH MCHC RDW Plt Count MPV Neut % (Auto) Lymph % (Auto) [place] % (Auto) Eos % (Auto) Baso % (Auto) Lymph # (Auto) [place] # (Auto) Eos # (Auto) Baso # (Auto) Absolute Neuts (auto) PT INR APTT Sodium Potassium Chloride Carbon Dioxide Anion Gap BUN Creatinine Est GFR ( Amer) Est GFR (Non-Af Amer) Random Glucose Calcium Magnesium Total Bilirubin AST ALT Alkaline Phosphatase Total Protein Albumin Globulin Albumin/Globulin Ratio Lipase Urine Color Yellow Urine Appearance Clear Urine pH 6.5 Ur Specific [place] 1.015 Urine Protein Trace H Urine Glucose (UA) Negative Urine Ketones Trace H Urine Blood Negative Urine Nitrate Negative Urine Bilirubin Small H Urine Urobilinogen 0.2 Ur Leukocyte Esterase Negative Urine RBC 0 - 2 Urine WBC 0 - 2 Ur Epithelial Cells 0 - 2 Calcium Oxalate Crystal Occ Assessment & Plan - Assessment and Plan (Free Text) Assessment: 62M with PMHx of Ulcerative colitis s/p total colectomy with ileoanal pouch creation in 2017 at [facility], presents to the ED with abdominal pain and watery diarrhea CT: Previous colectomy with ileo anal pouch. Moderately dilated loops of small bowel throughout the abdomen. There is mural thickening within the ileo anal pouch. No definite inflammatory change. Some mural thickening in the duodenum and proximal jejunum. - CLD, ADAT - No Abx necessary - No acute surgical intervention - Discussed plan with Dr. Michael Urrutia PGY-4
[2018-08-02] MEDS ORDERED: Lactated Ringer's 1,000 ML IV SCH (22:00)
[2018-08-02 23:06] VITALS: RESP 18
--- NOTE | 2018-08-03 07:32 | CP.PCM.PN ---
Subjective - Date & Time of Evaluation Date of Evaluation: 08/03/18 Time of Evaluation: 07:42 - Subjective Subjective: PGY1 General surgery progress note for Dr. Rodriguez Pt seen and examined at bedside. Pt is resting comfortably. He reports superficial right lower abdominal pain. Denies fever, chills, chest pain, sob, abdominal pain, n/v/d, hematochezia, melena, bleeding from right lower abdominal wound, headache, dizziness, lightheadedness, numbness or tingling. Tolerating CLD. Pt is having loose bowel movements, this morning and last night, which is baseline for him after the total colectomy. Objective - Vital Signs/Intake and Output Vital Signs (last 24 hours): Temp Pulse Resp BP Pulse Ox 98.3 F 63 18 153/82 H 98 08/02/18 23:05 08/02/18 23:05 08/03/18 03:12 08/02/18 23:05 08/02/18 23:05 Intake and Output: 08/03/18 08/03/18 06:59 18:59 Intake Total 240 Balance 240 - Medications Medications: Current Medications Lactated Ringer's (Lactated Ringer's) 1,000 mls @ 75 mls/hr IV .[id number] BRIGITTE Last Admin: 08/02/18 23:00 Dose: 75 mls/hr Ketorolac Tromethamine (Toradol) 15 mg IVP Q6 PRN PRN Reason: Pain, moderate (4-7) Last Admin: 08/03/18 03:09 Dose: 15 mg Ondansetron HCl (Zofran Inj) 4 mg IVP Q4 PRN PRN Reason: Nausea/Vomiting - Labs Labs: 08/02/18 17:16 08/02/18 17:16 PT 11.0 SECONDS (9.4-12.5) 08/02/18 17:16 INR 0.99 08/02/18 17:16 APTT 32.8 Seconds (26.9-38.3) 08/02/18 17:16 - Constitutional Appears: Non-toxic, No Acute Distress - Head Exam Head Exam: ATRAUMATIC, NORMAL INSPECTION - Eye Exam Eye Exam: EOMI, Normal appearance - ENT Exam ENT Exam: Mucous Membranes Moist - Respiratory Exam Respiratory Exam: NORMAL BREATHING PATTERN - Cardiovascular Exam Cardiovascular Exam: +S1, +S2. absent: Tachycardia - GI/Abdominal Exam GI & Abdominal Exam: Soft, Normal Bowel Sounds. absent: Distended, Firm, Guarding, Rigid, Tenderness Additional comments: Well healed left previous ileostomy site Right previous ileostomy site with inflammatory changes, no active purulent drainage, no active bleeding. - Extremities Exam Extremities Exam: Normal Capillary Refill, Normal Inspection. absent: Pedal Edema - Neurological Exam Neurological Exam: Alert, Awake - Psychiatric Exam Psychiatric exam: Normal Affect, Normal Mood - Skin Skin Exam: Dry, Normal Color, Warm Assessment and Plan - Assessment and Plan (Free Text) Assessment: This is a 62M with PMH of Ulcerative colitis s/p total colectomy with ileoanal pouch creation in [address] [facility], presents to the ED with abdom inal pain and watery diarrhea. Plan: CT: Previous colectomy with ileo anal pouch. Moderately dilated loops of small bowel throughout the abdomen. There is mural thickening within the ileo anal pouch. No definite inflammatory change. Some mural thickening in the duodenum an d proximal jejunum. Tolerating CLD. Advanced to FLD No acute surgical intervention at this time Further recommendations as per primary team, GI (Dr. Balderrama). Case discussed with Dr. Michael Santana PGY1 Pager [phone]
--- NOTE | 2018-08-03 08:24 | CARD ---
APPROVED REPORT Date of service: 08/02/2018 EKG Measurement Heart [id number] <Conclusion> Normal sinus rhythm with sinus arrhythmia Normal ECG
--- NOTE | 2018-08-03 13:26 | CP.PCM.HP ---
<Steph Whelan - Last Filed: 08/03/18 13:49> History of Present Illness - History of Present Illness History of Present Illness: H&P for Dr. Candelaria Service CC: complaining of left sided abdominal cramping and associated watery diarrhea 4-5 episodes /day x 2 days HPI: 63 M with past medical history of ulcerative colitis s/p total colectomy w/ ileostomy & reversal x 2, GERD, pancreatitis, alcohol/tobacco abuse, GI bleed secondary to duodenal ulcer who presented to the [facility] with complaints of abdominal cramping and pain with associated watery diarrhea. As per pt, he states he normally has a bm 2-3 times a day after the total colectomy and that he had been experiencing 5-6 episodes recently for the past two days. He also endorsed right sided abdominal cramping that is intermittent and patient also had complaints of excessive gas. He denied any recent travels or unusual foods. Patient was seen and examined at bedside. Patient has had 1 episode of watery diarrhea today. He is otherwise tolerating his diet, as he is hungry. He denies any fevers, chills, headaches, shortness of breath, dysuria, chest pain, back pain, or any other somatic complaints. PMHx: Ulcerative colitis, tobacco abuse, alcohol abuse, GI bleed from duodenal ulcer, GERD, pancreatitis PSHx: total colectomy with ileostomy in 2006 with subsequent reversal at a different facility, and an ileostomy and small bowel resection for SBO in 2016, and subsequent ileostomy reversal with ileoanal pouch creation in 2017 at [facility] SHx: Smokes 1ppd >40yrs, drinks "socially" 2-3 times per week 40oz beers, smokes marijuana daily. FamHx: Mother: UC, Father:Prostate CA Meds: MAR reviewed Allergies: NKDA Present on Admission - Present on Admission Any Indicators Present on Admission: No Review of Systems - Review of Systems Review of Systems: as per HPI otherwise negative Past Patient History - Infectious Disease Hx of Infectious Diseases: None - Tetanus Immunizations Tetanus Immunization: Unknown - Past Medical History & Family History Past Medical History?: Yes - Past Social History Smoking Status: Heavy Smoker > 10 Cigarettes Daily - CARDIAC Hx Hypertension: Yes - PULMONARY Hx Respiratory Disorders: No - NEUROLOGICAL Hx Neurological Disorder: No - HEENT Hx HEENT Problems: No - RENAL Hx Chronic Kidney Disease: No - ENDOCRINE/METABOLIC Hx Endocrine Disorders: No - HEMATOLOGICAL/ONCOLOGICAL Hx Anemia: Yes - INTEGUMENTARY Hx Dermatological Problems: No - MUSCULOSKELETAL/RHEUMATOLOGICAL Hx Falls: Yes - GASTROINTESTINAL Hx Colostomy: Yes Hx Ileostomy: Yes Hx Pancreatitis: Yes Other/Comment: ulcerative colitis - GENITOURINARY/GYNECOLOGICAL Hx Genitourinary Disorders: No - PSYCHIATRIC Hx Emotional Abuse: No Hx Physical Abuse: No Hx Substance Use: Yes (cannibus social) - SURGICAL HISTORY Other/Comment: total colectomy ileostomy 2006, subsequent ileostomy reversal. Small bowel resection and ileostomy creation 2015. Ileostomy reversal 03/2017 - ANESTHESIA Hx Anesthesia: Yes Hx Anesthesia Reactions: No Hx Malignant Hyperthermia: No Meds Allergies/Adverse Reactions: Allergies Allergy/AdvReac Type Severity Reaction Status Date / Time No Known Allergies Allergy Verified 04/07/17 13:00 Physical Exam - Constitutional Appears: No Acute Distress - Head Exam Head Exam: ATRAUMATIC, NORMAL INSPECTION, NORMOCEPHALIC - Eye Exam Eye Exam: EOMI, Normal appearance, PERRL Pupil Exam: NORMAL ACCOMODATION, PERRL - ENT Exam ENT Exam: Mucous Membranes Moist, Normal Exam - Neck Exam Neck exam: Positive for: Normal Inspection - Respiratory Exam Respiratory Exam: Clear to Auscultation Bilateral, NORMAL BREATHING PATTERN. absent: Wheezes - Cardiovascular Exam Cardiovascular Exam: REGULAR RHYTHM, +S1, +S2 - GI/Abdominal Exam GI & Abdominal Exam: Soft, Tenderness Additional comments: Well healed left previous ileostomy site Right previous ileostomy site with minimal amount of purulent drainage - Extremities Exam Extremities exam: Positive for: normal inspection. Negative for: pedal edema - Back Exam Back exam: NORMAL INSPECTION - Neurological Exam Neurological exam: Alert, CN II-XII Intact, Oriented x3, Reflexes Normal - Psychiatric Exam Psychiatric exam: Normal Affect, Normal Mood Results - Vital Signs Recent Vital Signs: Last Vital Signs Temp 98.3 F 08/03/18 06:00 Pulse 89 08/03/18 06:00 Resp 18 08/03/18 06:00 BP 149/78 08/03/18 06:00 Pulse Ox 98 08/03/18 06:00 - Labs Result Diagrams: 08/02/18 17:16 08/02/18 17:16 Labs: Laboratory Results - last 24 hr 04/08/02/18 08/02/18 17:16 17:16 17:16 WBC 8.8 RBC 5.36 Hgb 16.6 D Hct 48.8 MCV 91.0 D MCH 31.0 MCHC 34.0 RDW 14.9 H Plt Count 251 MPV 9.5 Neut % (Auto) 77.9 H Lymph % (Auto) 14.5 L [place] % (Auto) 5.9 Eos % (Auto) 1.5 Baso % (Auto) 0.2 Lymph # (Auto) 1.3 [place] # (Auto) 0.5 Eos # (Auto) 0.1 Baso # (Auto) 0.02 Absolute Neuts (auto) 6.81 H PT 11.0 INR 0.99 APTT 32.8 Sodium 137 Potassium 4.1 Chloride 99 Carbon Dioxide 29 Anion Gap 14 BUN 13 Creatinine 1.2 Est GFR ( Amer) > 60 Est GFR (Non-Af Amer) > 60 Random Glucose 86 Calcium 10.4 Magnesium 2.1 Total Bilirubin 0.7 AST 30 ALT 17 Alkaline Phosphatase 113 Total Protein 8.4 H Albumin 4.5 Globulin 3.9 Albumin/Globulin Ratio 1.2 Lipase 79 Urine Color Urine Appearance Urine pH Ur Specific [place] Urine Protein Urine Glucose (UA) Urine Ketones Urine Blood Urine Nitrate Urine Bilirubin Urine Urobilinogen Ur Leukocyte Esterase Urine RBC Urine WBC Ur Epithelial Cells Calcium Oxalate Crystal 08/02/18 19:10 WBC RBC Hgb Hct MCV MCH MCHC RDW Plt Count MPV Neut % (Auto) Lymph % (Auto) [place] % (Auto) Eos % (Auto) Baso % (Auto) Lymph # (Auto) [place] # (Auto) Eos # (Auto) Baso # (Auto) Absolute Neuts (auto) PT INR APTT Sodium Potassium Chloride Carbon Dioxide Anion Gap BUN Creatinine Est GFR ( Amer) Est GFR (Non-Af Amer) Random Glucose Calcium Magnesium Total Bilirubin AST ALT Alkaline Phosphatase Total Protein Albumin Globulin Albumin/Globulin Ratio Lipase Urine Color Yellow Urine Appearance Clear Urine pH 6.5 Ur Specific [place] 1.015 Urine Protein Trace H Urine Glucose (UA) Negative Urine Ketones Trace H Urine Blood Negative Urine Nitrate Negative Urine Bilirubin Small H Urine Urobilinogen 0.2 Ur Leukocyte Esterase Negative Urine RBC 0 - 2 Urine WBC 0 - 2 Ur Epithelial Cells 0 - 2 Calcium Oxalate Crystal Occ Assessment & Plan - Assessment and Plan (Free Text) Assessment: -watery diarrhea s/p total colectomy 2/2 pouchitis vs gastroenteritis -Ulcerative colitis s/p total colectomy with ileostomy in 2006 with subsequent reversal at a different facility, and an ileostomy and small bowel resection for SBO in 2015, and subsequent ileostomy reversal with ileoanal pouch creation in 2017 at [facility] - hx of etoh abuse - hx of tobacco abuse - hx of duodenal ulcer - Tobacco/ etoh/ marijuana abuse Plan: Patient is comfortable. EKG reviewed, shows: NSR at 83, no ST elevation. CT abdomen reviewed: Previous colectomy with ileo anal pouch. Moderately dilated loops of small bowel throughout the abdomen. There is mural thickening within the ileo anal pouch. No definite inflammatory change. Some mural thickening in the duodenum and proximal jejunum. GI consulted and recommendations appreciated. Follow up stool cultures. Patient evaluated by surgery, no acute intervention at this time. Patient has had one episode of watery bm today, based on labs, bicarb within range despite reports by the patient to have had multiple bm a day. Advance diet as tolerated. Patient tolerating FLD diet. Will give Multivitamin and Thiamine for history of EtOH abuse. Counseled patient on tobacco/marijuana and alcohol cessation. GI and DVT prophylaxis. Case seen, discussed and reviewed with Dr. Candelaria. <Abelardo Candelaria S - Last Filed: 08/03/18 14:13> Results - Vital Signs Recent Vital Signs: Last Vital Signs Temp 98.3 F 08/03/18 06:00 Pulse 89 08/03/18 06:00 Resp 18 08/03/18 06:00 BP 149/78 08/03/18 06:00 Pulse Ox 98 08/03/18 06:00 - Labs Result Diagrams: 08/02/18 17:16 08/02/18 17:16 Labs: Laboratory Results - last 24 hr 08/02/18 08/02/18 08/02/18 17:16 17:16 17:16 WBC 8.8 RBC 5.36 Hgb 16.6 D Hct 48.8 MCV 91.0 D MCH 31.0 MCHC 34.0 RDW 14.9 H Plt Count 251 MPV 9.5 Neut % (Auto) 77.9 H Lymph % (Auto) 14.5 L [place] % (Auto) 5.9 Eos % (Auto) 1.5 Baso % (Auto) 0.2 Lymph # (Auto) 1.3 [place] # (Auto) 0.5 Eos # (Auto) 0.1 Baso # (Auto) 0.02 Absolute Neuts (auto) 6.81 H PT 11.0 INR 0.99 APTT 32.8 Sodium 137 Potassium 4.1 Chloride 99 Carbon Dioxide 29 Anion Gap 14 BUN 13 Creatinine 1.2 Est GFR ( Amer) > 60 Est GFR (Non-Af Amer) > 60 Random Glucose 86 Calcium 10.4 Magnesium 2.1 Total Bilirubin 0.7 AST 30 ALT 17 Alkaline Phosphatase 113 Total Protein 8.4 H Albumin 4.5 Globulin 3.9 Albumin/Globulin Ratio 1.2 Lipase 79 Urine Color Urine Appearance Urine pH Ur Specific [place] Urine Protein Urine Glucose (UA) Urine Ketones Urine Blood Urine Nitrate Urine Bilirubin Urine Urobilinogen Ur Leukocyte Esterase Urine RBC Urine WBC Ur Epithelial Cells Calcium Oxalate Crystal 08/02/18 19:10 WBC RBC Hgb Hct MCV MCH MCHC RDW Plt Count MPV Neut % (Auto) Lymph % (Auto) [place] % (Auto) Eos % (Auto) Baso % (Auto) Lymph # (Auto) [place] # (Auto) Eos # (Auto) Baso # (Auto) Absolute Neuts (auto) PT INR APTT Sodium Potassium Chloride Carbon Dioxide Anion Gap BUN Creatinine Est GFR ( Amer) Est GFR (Non-Af Amer) Random Glucose Calcium Magnesium Total Bilirubin AST ALT Alkaline Phosphatase Total Protein Albumin Globulin Albumin/Globulin Ratio Lipase Urine Color Yellow Urine Appearance Clear Urine pH 6.5 Ur Specific [place] 1.015 Urine Protein Trace H Urine Glucose (UA) Negative Urine Ketones Trace H Urine Blood Negative Urine Nitrate Negative Urine Bilirubin Small H Urine Urobilinogen 0.2 Ur Leukocyte Esterase Negative Urine RBC 0 - 2 Urine WBC 0 - 2 Ur Epithelial Cells 0 - 2 Calcium Oxalate Crystal Occ Assessment & Plan - Assessment and Plan (Free Text) Assessment: Patient was seen and examined by me. I have reviewed the note of the manager medical and have gone over the plan of care. I agree with the note. I have reviewed the medications and the last labs.
[2018-08-03] MEDS ORDERED: Simethicone 80 mg Chewtab PO PRN (13:41)
[2018-08-03] MEDS ORDERED: Alum-Mag Hydrox-Simethicone Susp (30 mL) PO ONE (13:41)
[2018-08-03 14:41] VITALS: BP 145/86; PULSE 73; TEMP 98.9; O2SAT 99
[2018-08-03] MEDS ORDERED: Pantoprazole 40 mg EC Tab PO SCH (16:00)
--- NOTE | 2018-08-04 | HP ---
DATE OF EXAM: 08/03/2018 HOSPITAL COURSE: The patient was seen and examined. I do agree with the note of the medical research associate. I was involved in the plan of care. The patient has been having chronic diarrhea for the past 2 days, it has been worse than usual. He does have a history of ulcerative colitis and had a total colectomy. The patient has a history of GERD. He has a history of duodenal ulcers. He has been having chronic wound on the skin on the right side of his abdomen. He has no fevers. No chills. No nausea. No vomiting. No dysuria or frequency. No nocturia. He otherwise feels well. The patient has diarrhea, will get GI to evaluate the patient. He has ulcerative colitis, which is stable. The patient is currently comfortable. His labs were reviewed. His last creatinine is 1.2 and bicarb was 29. I reviewed the CT of the abdomen and pelvis. I also reviewed the notes from Dr. Rodriguez's resident. The patient is on thiamine and Zofran as needed. He is on lactated Ringers for his fluid. He is on heparin for DVT prophylaxis. He is on liquid diet. Abelardo Candelaria MD
== END 2018-08-03 16:58 | disposition home or self-care (01) ==
LOC: ED 14:14 → ERH 18:32 → 5RSO 21:21
PROVIDERS: ADMIT Internal Medicine Nephrology; ATTEND Internal Medicine Nephrology
DX: R10.9 Unspecified abdominal pain (principal); R19.7 Diarrhea, unspecified; F12.10 Cannabis abuse, uncomplicated; I10 Essential (primary) hypertension; K21.9 Gastro-esophageal reflux disease without esophagitis; F17.210 Nicotine dependence, cigarettes, uncomplicated; Z93.2 Ileostomy status; Z93.3 Colostomy status; Z87.19 Personal history of other diseases of the digestive system; Z90.49 Acquired absence of other specified parts of digestive tract; Z80.42 Family history of malignant neoplasm of prostate
CPT/HCPCS: 71045; 74177; 80053; 81001; 83690; 83735; 85025; 85610; 85730; 93005; 96360; 96374; 99284; G0378; J1644; J1885; J7030; J7120; Q9967